=== PATIENT | female | born 1960 | race Caucasian/White ===

== ENCOUNTER → 2020-10-27 09:55 | Outpatient (CLI) | payer OTHER, SELFPAY ==
[2020-10-27 10:49] LABS: Hemoglobin A1C% w Est Avg Glu 6.6 % (4.0-6.0)
[2020-10-27 11:19] LABS: Alanine Aminotransferase 24 IU/L (<35); Albumin 4.8 g/dL (3.5-5.0); Albumin Globulin Ratio 1.7 (1.0-2.8); Alkaline Phosphatase 79 U/L (38-126); Aspartate Aminotransferase 39 IU/L (14-36); BUN Creatinine Ratio 27.9 (6-22); Bilirubin Total 0.5 mg/dL (0.2-1.3); Blood Urea Nitrogen 17 mg/dL (7-17); Calcium 9.9 mg/dL (8.4-10.2); Carbon Dioxide 26 mmol/L (22-32); Chloride 101 mmol/L (98-107); Cholesterol 223 mg/dL (140-199); Estimated Glomerular Filt Rate > 60.0 mL/min (>60); Globulin 2.8 g/dL (1.7-4.1); Glucose 120 mg/dL (80-110); HDL Cholesterol 70 mg/dL (40-60); HEMOLYSIS < 15 (0-50); LDL Cholesterol Calculated 135 mg/dL (<100); Potassium 4.5 mmol/L (3.4-5.1); Sodium 138 mmol/L (137-145); Total Protein 7.6 g/dL (6.3-8.2); Triglycerides 91 mg/dL (35-150)
[2020-10-27 11:49] LABS: TSH w/ Reflex to FT4 2.83 uIU/mL (0.47-4.68)
== END ==
PROVIDERS: PCP Family Medicine; Referring Provider Family Medicine; Visit Provider Family Medicine
DX: J30.2 Other seasonal allergic rhinitis (principal); N28.9 Disorder of kidney and ureter, unspecified; R73.03 Prediabetes; Z85.3 Personal history of malignant neoplasm of breast
CPT/HCPCS: 36415; 80053; 80061; 83036; 84443

== ENCOUNTER → 2020-10-29 08:29 | Outpatient (CLI) | payer OTHER, SELFPAY ==
[2020-10-29] MEDS: COVID-19 VACC #1, MRNA(MOD) 100 MCG/0.5 ML VIAL IM (08:34)
== END ==
PROVIDERS: PCP Family Medicine; Visit Provider Internal Medicine
DX: Z23 Encounter for immunization (principal)
CPT/HCPCS: 0011A; 91301

== ENCOUNTER → 2020-11-26 08:26 | Outpatient (CLI) | payer OTHER, SELFPAY ==
[2020-11-26] MEDS: COVID-19 VACC #2, MRNA(MOD) 100 MCG/0.5 ML VIAL IM (08:32)
== END ==
PROVIDERS: PCP Family Medicine; Visit Provider Internal Medicine
DX: Z23 Encounter for immunization (principal)
CPT/HCPCS: 0012A; 91301

== ENCOUNTER → 2020-12-16 18:08 | Outpatient (CLI) | payer OTHER, SELFPAY | PROVIDERS: PCP Family Medicine; Visit Provider Physician Assistant | DX: R30.0 Dysuria (principal) | CPT/HCPCS: 87077; 87086; 87186 ==

== ENCOUNTER → 2021-03-31 10:50 | Outpatient (CLI) | payer OTHER, SELFPAY | PROVIDERS: PCP Family Medicine; Referring Provider Nurse Practitioner; Visit Provider Nurse Practitioner | DX: N39.0 Urinary tract infection, site not specified (principal) | CPT/HCPCS: 87077; 87086; 87186 ==

== ENCOUNTER → 2021-04-20 07:40 | Outpatient (CLI) | payer OTHER, SELFPAY ==
[2021-04-20 08:52] LABS: Hemoglobin A1C% w Est Avg Glu 6.8 % (4.0-6.0)
[2021-04-20 09:00] LABS: Alanine Aminotransferase 27 IU/L (<35); Albumin Globulin Ratio 1.4 (1.0-2.8); Alkaline Phosphatase 79 U/L (38-126); Aspartate Aminotransferase 37 IU/L (14-36); Bilirubin Total 0.3 mg/dL (0.2-1.3); Blood Urea Nitrogen 14 mg/dL (7-17); Calcium 9.2 mg/dL (8.4-10.2); Carbon Dioxide 34 mmol/L (22-32); Chloride 104 mmol/L (98-107); Estimated Glomerular Filt Rate > 60.0 mL/min (>60); Globulin 2.8 g/dL (1.7-4.1); Glucose 122 mg/dL (80-110); HEMOLYSIS < 15 (0-50); Potassium 4.2 mmol/L (3.4-5.1); Sodium 141 mmol/L (137-145); Total Protein 6.8 g/dL (6.3-8.2)
== END ==
PROVIDERS: PCP Family Medicine; Referring Provider Family Medicine; Visit Provider Family Medicine
DX: E78.2 Mixed hyperlipidemia (principal); N28.9 Disorder of kidney and ureter, unspecified; R73.03 Prediabetes
CPT/HCPCS: 36415; 80053; 83036

== ENCOUNTER → 2021-08-19 10:11 | Outpatient (CLI) | payer OTHER, SELFPAY ==
[2021-08-19 12:13] LABS: COVID19 -Nasal RAPID Negative (Negative)
== END ==
PROVIDERS: PCP Family Medicine; Visit Provider Surgery
DX: Z01.812 Encounter for preprocedural laboratory examination (principal); Z20.822 Contact with and (suspected) exposure to COVID-19
CPT/HCPCS: 87635; C9803

== ENCOUNTER 2021-08-22 07:33 | Day surgery (SDC) | payer OTHER, SELFPAY ==
[2021-08-22] VITALS (11 sets, daily range): BP systolic 129–166; BP diastolic 50–73; PULSE 40–58; RESP 10–20; TEMP 36.4–36.7; O2SAT 98–100; BMI 20.1
--- NOTE | 2021-08-22 | PATH_ITS ---
[facility] Accession Number: [id number] . 01 Material submitted: . colon - ASCENDING COLON POLYP . 02 Diagnosis: Ascending Colon Polyp: Serrated lesion, cannot completely exclude sessile serrated adenoma. V 08/25/2021 1251 Local . 02 Electronically signed: . Dulce Leon MD, Pathologist NPI- [id number] . 01 Gross description: . ASCENDING COLON POLYP: Received in formalin is 1 fragment(s) of vazquez, soft tissue measuring 0.3 x 0.3 x 0.2 cm submitted entirely in 1 cassette(s) /[facility] 08/23/2021 0949 Local . 02 Pathologist provided ICD-10: K63.5 . 02 CPT . 665821 Performed at: 01 [facility] [address] [facility], [place], [place] [id number] MD Manohar Chris MD Phone: [phone] Performed at: 02 [facility] [address] [place], [place] [id number] MD Monalisa Moreno MD Phone: [phone]
--- NOTE | 2021-08-22 08:31 | PM.HP.1 ---
History of Present Illness History of Present Illness Date Patient Seen: 08/22/21 Time Patient Seen: 08:31 Chief complaint: SCREENING COLONOSCOPY Narrative: The patient presents for colorectal sreening. She has a personal history of colonic polyps, last colonoscopy 5 years ago. No personal or family history of colon cancer. On further history denies any recent gastrointestinal symptoms. No nausea, vomiting, abdominal pain, loss of appetite, unexplained weight loss, change in bowel habits, diarrhea, constipation, melena, hematochezia, or bright red blood per rectum. Patient History Medical History Diabetes History of breast cancer Hyperlipidemia Renal insufficiency Seasonal allergic rhinitis Family & Social History Social History: household members spouse Tobacco & Substance use: Smoking Status Former smoker alcohol intake current alcohol intake frequency 0-2 drinks per day Substance Use Type does not use Meds Home Medications and Allergies Home Medications Medication Instructions Recorded Confirmed Type dicyclomine 10 mg capsule 10 mg PO ONCE PRN cap 09/03/20 08/22/21 History blood sugar diagnostic (Blood #100 ea 12/24/20 06/23/21 Rx Glucose Test) blood-glucose meter #1 ea 12/24/20 06/23/21 Rx lancets 33 gauge (BD Ultra Fine #100 ea 12/24/20 06/23/21 Rx Lancets) Allergies Allergy/AdvReac Type Severity Reaction Status Date / Time No Known Drug Allergies Allergy Verified 08/22/21 08:07 Exam Vital Signs (past 8 hours): - 08/22/21 07:58 Temperature 97.6 F Pulse Rate 42 L Respiratory Rate 16 Blood Pressure 152/73 H Pulse Oximetry 100 Oxygen Delivery Method Room Air Narrative Exam Narrative: GENERAL: Thin female in no apparent distress HEENT: No scleral icterus CV: Regular rate, no peripheral edema LUNGS: No increased work of breathing. Patient speaks in full sentences without oxygen support. ABDOMEN: Soft, non-tender, non-distended NEURO: Nonfocal, normal strength throughout SKIN: Warm and dry Assessment & Plan Assessment and plan (1) Personal history of colonic polyps: Status: Acute Assessment & Plan narrative: The patient requires colorectal screening and colonoscopy is recommended. Technical details were discussed. Risks, benefits, alternatives explained. Risks including but not limited to myocardial infarction, aspiration, bleeding, pain, missed lesion, incomplete examination, need for further radiographic studies, colonic perforation, and need for major abdominal surgery were discussed. All questions were answered to their satisfaction, and they are in agreement with this plan. Time Spent With Patient Critical Care time: I spent a total of [] minutes of critical care time on this patient's care today; this time is exclusive of procedural time.
[2021-08-22] MEDS: MIDAZOLAM 5 MG/5 ML VIAL IV (08:52)
[2021-08-22] MEDS: fentaNYL 250 MCG/5 ML INJ IV (08:52)
--- NOTE | 2021-08-22 09:09 | PM.OP.COLON ---
Operative Date/Time/Diagnoses Date of procedure: 08/22/21 Time of procedure: 09:09 Pre-op diagnosis: Personal history of colonic polyps Post-op diagnosis: same Procedure & Clinicians Study performed: Colonoscopy and polypectomy Same procedure as scheduled: Yes Indications: Personal history of colonic polyps. Surgeon: Farshad Aguilar Procedure Notes Procedure in detail: Medications: Conscious sedation using 5 mg IV midazolam and 250 mcg IV of fentanyl The history and physical was performed/updated and the patient is ASA class is 2. The procedure was discussed in detail with the patient. Potential risks complications including infection, bleeding, missed diagnosis, perforation, need for surgery, and were explained. Their questions were answered and informed consent was obtained. Patient was brought to the procedure room and placed standard monitoring equipment. The patient's vital signs were monitored continuously throughout the entire procedure. Prior to starting time-out was performed. The patient was placed in the left lateral recumbent position. Procedural sedation was administered. Examination began with a thorough inspection of the perianal area there was no evidence of fissures, fistulae, external hemorrhoids or cutaneous malignancy. The colonoscopy scope was then placed into the anal canal and was advanced to the cecum, which was identified by the ileocecal valve, the appendiceal orifice and the confluence of the taenia. The scope was then slowly withdrawn examining colon thoroughly in all directions, irrigating it of any residual stool. FINDINGS 1. Ascending colon-5 mm polyp removed with biopsy forceps 2. Tortuous right-sided colon The patient tolerated the procedure well. They will be discharged once criteria are met. The prep was of good/excellent quality. The withdrawl time was 6 minutes. The sedation time was 27 minutes. Specimen(s): other (Ascending colon) Impression: Colonic polyp Post-procedure Recommendations: Colonoscopy in 5 years Disposition: same day surgery
== END 2021-08-22 10:46 | disposition home or self-care (01) ==
PROVIDERS: PCP Family Medicine; Referring Provider Surgery; Visit Provider Surgery
PROC: 0DJD8ZZ Inspection of Lower Intestinal Tract, Via Natural or Artificial Opening Endoscopic (ICD-10-PCS; CPT 45378; principal; 2021-08-22 08:30)
DX: Z12.11 Encounter for screening for malignant neoplasm of colon (principal); Z86.010 Personal history of colon polyps; E78.5 Hyperlipidemia, unspecified; E11.9 Type 2 diabetes mellitus without complications; D12.2 Benign neoplasm of ascending colon
CPT/HCPCS: 45380; 99152; 99153; J2250; J3010

== ENCOUNTER → 2021-08-30 07:54 | Outpatient (CLI) | payer OTHER, SELFPAY ==
[2021-08-30 09:28] LABS: Hemoglobin A1C% w Est Avg Glu 6.9 % (4.0-6.0)
== END ==
PROVIDERS: PCP Family Medicine; Referring Provider Family Medicine; Visit Provider Family Medicine
DX: E11.9 Type 2 diabetes mellitus without complications (principal)
CPT/HCPCS: 36415; 83036

== ENCOUNTER → 2021-12-15 11:12 | Outpatient (CLI) | payer OTHER, SELFPAY ==
--- NOTE | 2021-12-15 11:14 | DI.MRI.S_ITS ---
PROCEDURE: MR PELIS WO/W CON INDICATIONS: ovarian cancer f/u 2012 TECHNIQUE: Coronal HASTE, sagittal T2 FSE, axial T1 FSE, axial and coronal nonbreath-hold T2 FSE. Axial dynamic VIBE during administration of contrast. Post-contrast axial and coronal VIBE/2-D FLASH with fat saturation from the iliac crests to the symphysis. Optional diffusion weighted imaging and ADC may be performed. COMPARISON: None. FINDINGS: Image quality: Excellent. Bowel and peritoneum: No visible free pelvic fluid though there is a paucity of space in the intraperitoneal cavity in the pelvis. There appears to be some fascial thickening in the right pericolic gutter. The visible bowel loops appear normal, although there may be some nonspecific mesenteric thickening, potentially edema. Genitourinary system: The urinary bladder wall appears slightly diffusely thickened and there may be perivesicular edema. Distal ureters are not well seen and likely nondilated. The uterus is absent. Ovarian tissue is presumed absent. Nodes and vessels: Along the right pelvic sidewall, there is a well-circumscribed homogeneously T2 hyperintense unilocular thin-walled cyst measuring 4.4 cm. No adjacent fluid. No suspicious peripheral or internal enhancement postcontrast. In the anterior left pelvis in the external iliac chain, there is a unilocular cyst measuring 2.4 cm with a slightly thicker wall and peripheral wall enhancement. No other visible lymph nodes. The vasculature appears normal. Soft tissues: No inguinal hernias. Bones: Marrow is normal in overall signal. IMPRESSION: 1. There are two cystic masses in the pelvis which are nonspecific. Differential diagnosis includes malignant deposits, lymph nodes, lymphocele, less likely residual ovarian tissue. 2. Nonspecific right lateral conal fascial thickening, possible mesenteric thickening, and possible perivesicular thickening and/or inflammation. 3. Confirmation of above findings is recommended using CT with IV and oral contrast. Dictated by: Leatha Heck M.D. on 12/15/2021 at 13:45 Approved by: Leatha Heck M.D. on 12/15/2021 at 15:21
== END ==
PROVIDERS: PCP Family Medicine; Referring Provider Internal Medicine Medical Oncology; Visit Provider Internal Medicine Medical Oncology
DX: Z85.3 Personal history of malignant neoplasm of breast; Z08 Encounter for follow-up examination after completed treatment for malignant neoplasm; Z85.43 Personal history of malignant neoplasm of ovary; N94.89 Other specified conditions associated with female genital organs and menstrual cycle
CPT/HCPCS: 72197; A9579

== ENCOUNTER → 2022-04-14 07:04 | Outpatient (CLI) | payer OTHER, SELFPAY ==
[2022-04-14 09:28] LABS: Cholesterol 203 mg/dL (140-199); HDL Cholesterol 47 mg/dL (40-60); LDL Cholesterol Calculated 135 mg/dL (<100); Triglycerides 104 mg/dL (35-150)
[2022-04-14 09:32] LABS: Hemoglobin A1C% w Est Avg Glu 6.8 % (4.0-6.0)
[2022-04-14 09:39] LABS: TSH w/ Reflex to FT4 2.15 uIU/mL (0.47-4.68)
== END ==
PROVIDERS: PCP Family Medicine; Referring Provider Family Medicine; Visit Provider Family Medicine
DX: E11.9 Type 2 diabetes mellitus without complications (principal); E78.2 Mixed hyperlipidemia; N28.9 Disorder of kidney and ureter, unspecified
CPT/HCPCS: 80061; 83036; 84443

== ENCOUNTER → 2022-04-21 09:07 | Outpatient (CLI) | payer OTHER, SELFPAY ==
--- NOTE | 2022-04-21 09:09 | DI.RAD.S_ITS ---
PROCEDURE: XR FOOT LT MIN 3V INDICATIONS: left foot pain TECHNIQUE: 3 views of the foot were acquired. COMPARISON: None. FINDINGS: Bones: No acute fractures or dislocations. No suspicious bony lesions. Moderate degenerative changes at the 1st metatarsophalangeal joint with joint space narrowing and marginal osteophyte formation. Soft tissues: No suspicious soft tissue calcification IMPRESSION: No acute osseous abnormality. 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 Dictated by: Rusty Cantrell M.D. on 04/21/2022 at 10:44 Approved by: Rusty Cantrell M.D. on 04/21/2022 at 10:45
== END ==
PROVIDERS: PCP Family Medicine; Referring Provider Family Medicine; Visit Provider Family Medicine
DX: M79.672 Pain in left foot (principal); M19.072 Primary osteoarthritis, left ankle and foot
CPT/HCPCS: 73630

== ENCOUNTER → 2022-06-30 12:46 | Outpatient (CLI) | payer OTHER, SELFPAY ==
--- NOTE | 2022-06-30 12:46 | DI.MG.S_ITS ---
UNILATERAL RIGHT DIGITAL SCREENING MAMMOGRAM 3D/2D WITH CAD: 06/30/2022 CLINICAL: Routine screening. Personal history of left breast cancer. Family history of breast cancer. Comparison is made to exams dated: 06/28/2021 mammogram, 06/28/2020 mammogram, and 06/26/2019 mammogram - Outside facility. The right breast is heterogeneously dense, which may obscure small masses (category c / 51-75% glandular tissue). Current study was also evaluated with a Computer Aided Detection (CAD) system. There are benign calcifications in the right breast. There also are benign post operative findings in the right breast. No significant masses, calcifications, or other findings are seen in the breast. There has been no significant interval change. IMPRESSION: BENIGN There is no mammographic evidence of malignancy. A 1 year screening mammogram is recommended. This exam was interpreted at Station ID: [id number]. NOTE: For mammograms, a report in lay terms will be sent to the patient. Approximately 15% of breast malignancies will not be visualized mammographically. In the management of a palpable breast mass, a negative mammogram must not discourage biopsy of a clinically suspicious lesion. Electronically Signed By: Demario baron/ramsey:06/30/2022 16:20:07 letter sent: Normal Exam ACR BI-RADS Category 2: Benign Finding(s) 3342F
== END ==
PROVIDERS: PCP Family Medicine; Referring Provider Internal Medicine Medical Oncology; Visit Provider Internal Medicine Medical Oncology
DX: Z12.31 Encounter for screening mammogram for malignant neoplasm of breast (principal); Z85.3 Personal history of malignant neoplasm of breast; Z80.3 Family history of malignant neoplasm of breast
CPT/HCPCS: 77063; 77067

== ENCOUNTER → 2022-10-04 07:20 | Outpatient (CLI) | payer OTHER, SELFPAY ==
[2022-10-04 08:13] LABS: Add Manual Diff / Slide Review NO; Basophils Absolute Auto 0 /uL (0-100); Basophils Percent Auto 0.6 % (0-2); Eosinophils Absolute Auto 300 /uL (0-450); Eosinophils Percent Auto 3.6 % (2-4); Hematocrit 37.9 % (36-46); Hemoglobin 12.6 g/dL (12.0-16.0); Lymphocytes Absolute Auto 2900 /uL (1100-4500); Mean Corpuscular HGB Conc 33.2 % (30-36); Mean Corpuscular Hemoglobin 30.7 PG (26-34); Mean Corpuscular Volume 92.3 fL (80-100); Monocytes Absolute Auto 300 /uL (0-900); Monocytes Percent Auto 4.7 % (3-14); Neutrophils Absolute Auto 3700 /uL (1500-7000); Neutrophils Percent Auto 51.1 % (50-75); Platelet Count 305 X10^3/uL (150-400); Red Blood Cell Count 4.11 X10^6/uL (4.0-5.2); Red Cell Distribution Width 12.6 % (11.6-14.8); White Blood Cell Count 7.3 X10^3/uL (4.5-11.0)
[2022-10-04 08:33] LABS: Alanine Aminotransferase 24 IU/L (<35); Albumin 4.1 g/dL (3.5-5.0); Albumin Globulin Ratio 1.3 (1.0-2.8); Alkaline Phosphatase 91 U/L (38-126); Aspartate Aminotransferase 30 IU/L (14-36); BUN Creatinine Ratio 21.7 (6-22); Bilirubin Total 0.6 mg/dL (0.2-1.3); Blood Urea Nitrogen 15 mg/dL (7-17); Calcium 8.9 mg/dL (8.4-10.2); Carbon Dioxide 30 mmol/L (22-32); Chloride 98 mmol/L (98-107); Estimated Glomerular Filt Rate > 60 mL/min (>60); Globulin 3.1 g/dL (1.7-4.1); Glucose 123 mg/dL (80-110); HEMOLYSIS < 15 (0-50); Hemoglobin A1C% w Est Avg Glu 7.1 % (4.0-6.0); Potassium 4.4 mmol/L (3.4-5.1); Sodium 137 mmol/L (137-145); Total Protein 7.2 g/dL (6.3-8.2)
[2022-10-04 08:52] LABS: Creatinine Urine Random 70.3 mg/dL
[2022-10-04 08:57] LABS: Microalbumin Urine Random < 0.6 mg/dL (0-1.6)
== END ==
PROVIDERS: PCP Family Medicine; Referring Provider Family Medicine; Visit Provider Family Medicine
DX: E11.9 Type 2 diabetes mellitus without complications (principal); E78.2 Mixed hyperlipidemia
CPT/HCPCS: 36415; 80053; 82043; 82570; 83036; 85025

== ENCOUNTER 2023-01-16 07:40 | Day surgery (SDC) | payer MEDICARE, OTHER, SELFPAY ==
[2023-01-16] VITALS (9 sets, daily range): BP systolic 148–175; BP diastolic 53–69; PULSE 42–53; RESP 15–28; TEMP 36–36.5; O2SAT 98–100; BMI 21.9
--- NOTE | 2023-01-16 | DI.RAD.S_ITS ---
PROCEDURE: XR ACUTE ABDOMEN SERIES INDICATIONS: abd pain post colonoscopy TECHNIQUE: One view chest and two views of the abdomen were acquired. COMPARISON: None. FINDINGS: Surgical changes and devices: Surgical clips seen in the left pelvis. Chest: Lungs are clear. Heart size is normal. No pleural effusions. No pneumoperitoneum. Abdomen: Prominent air-filled loops of large bowel are seen throughout the abdomen. No suspicious calcifications. Visualized solid organ contours appear normal. Bones: No suspicious bony lesions. IMPRESSION: No pneumoperitoneum. Mildly dilated air-filled loops of large bowel are expected after colonoscopy. Approved by: Rusty Cantrell M.D. on 01/16/2023 at 10:54
[2023-01-16] MEDS: LACTATED RINGERS 1,000 ML 200 ML IV (08:01)
--- NOTE | 2023-01-16 08:39 | PM.HP.1 ---
History of Present Illness History of Present Illness Date Patient Seen: 01/16/23 Time Patient Seen: 08:39 Chief complaint: Colonoscopy Narrative: 63-year-old woman here for screening colonoscopy. Year and a half ago she had a piecemeal resection of a sessile serrated adenoma. She is here for a 1 year surveillance to ensure complete polyp resection. No family history of intestinal malignancy. She suffers from chronic diarrhea otherwise no new intestinal symptoms. [facility] Medical History Diabetes History of breast cancer Hyperlipidemia Renal insufficiency Seasonal allergic rhinitis Social History household members: spouse Smoking Status: Former smoker Tobacco: How many years used: 2 alcohol intake: current substance use type: does not use Meds Home Medications and Allergies Home Medications Medication Instructions Recorded Confirmed Type dicyclomine 10 mg capsule 10 mg PO ONCE PRN IBS 09/03/20 01/16/23 History blood-glucose meter #1 ea 12/24/20 10/20/22 Rx lancets 33 gauge (BD Ultra Fine #100 ea 12/24/20 10/20/22 Rx Lancets) cetirizine 10 mg tablet (Aller-Dago) 10 mg PO DAILY PRN Allergy Symptoms 11/22/21 01/16/23 History blood sugar diagnostic (True #100 strips 11/07/22 Rx Metrix Glucose Test Strip) metformin 1,000 mg tablet,extended 1,000 mg PO DAILY #90 tabs 12/19/22 01/16/23 Rx release 24hr Allergies Allergy/AdvReac Type Severity Reaction Status Date / Time No Known Drug Allergies Allergy Verified 01/16/23 07:51 Exam Vital Signs (past 8 hours): - 01/16/23 07:59 Temperature 97.2 F L Pulse Rate 53 L Respiratory Rate 16 Blood Pressure 153/68 H Pulse Oximetry 100 Oxygen Delivery Method Room Air Oxygen Delivery Method Room Air Narrative Exam Narrative: General adult woman alert oriented no acute distress Chest nonlabored respiration Abdomen soft nontender nondistended Assessment & Plan Assessment and plan (1) Personal history of colonic polyps: Status: Acute Assessment & Plan narrative: 63-year-old woman history of sessile serrated adenoma with piecemeal resection here for a 1 year surveillance follow-up. Technical details were discussed. Risks, benefits, alternatives explained. Risks including but not limited to myocardial infarction, aspiration, bleeding, pain, missed lesion, incomplete examination, need for further radiographic studies, colonic perforation, and need for major abdominal surgery were discussed. All questions were answered to their satisfaction, and they are in agreement with this plan.
--- NOTE | 2023-01-16 09:20 | PM.OP.COLON ---
Operative Date/Time/Diagnoses Date of procedure: 01/16/23 Time of procedure: 09:20 Pre-op diagnosis: History of sessile serrated polyp Post-op diagnosis: same Procedure & Clinicians Study performed: Colonoscopy Same procedure as scheduled: Yes Indications: 63-year-old woman who had a piecemeal resection of a sessile serrated polyp here for surveillance. Procedure Notes Procedure in detail: The history and physical was performed/updated and the patient is ASA class is 2. The procedure was discussed in detail with the patient. Potential risks complications including infection, bleeding, missed diagnosis, perforation, need for surgery, and were explained. Their questions were answered and informed consent was obtained. Patient was brought to the procedure room and placed standard monitoring equipment. The patient's vital signs were monitored continuously throughout the entire procedure. Prior to starting time-out was performed. The patient was placed in the left lateral recumbent position. Procedural sedation was administered by anesthesia. Examination began with a thorough inspection of the perianal area there was no evidence of fissures, fistulae, external hemorrhoids or cutaneous malignancy. The colonoscopy scope was then placed into the anal canal and was advanced to the cecum, which was identified by the ileocecal valve, the appendiceal orifice and the confluence of the taenia. The scope was then slowly withdrawn examining colon thoroughly in all directions, irrigating it of any residual stool. No masses or polyps. Diverticulosis moderate within the sigmoid colon. The patient tolerated the procedure well. They will be discharged once criteria are met. The prep was of good/excellent quality. The withdrawl time was 7 minutes. Specimen(s): none sent Impression: Normal colonoscopy Post-procedure Recommendations: Colonoscopy in 5 years and High fiber diet Disposition: same day surgery
--- NOTE | 2023-01-16 10:23 | SUR.PHASEII ---
1015 pt c/o continuing pain in abd unable to stand r/t discomfort abd soft, tender of left lower side Dr. Aguilar contacted for reassess
--- NOTE | 2023-01-16 10:41 | SUR.PHASEII ---
1040 abd xr taken
== END 2023-01-16 11:37 | disposition home or self-care (01) ==
PROVIDERS: PCP Family Medicine; Referring Provider Surgery; Visit Provider Surgery
PROC: 0DJD8ZZ Inspection of Lower Intestinal Tract, Via Natural or Artificial Opening Endoscopic (ICD-10-PCS; CPT 45378; principal; 2023-01-16 08:45)
DX: Z12.11 Encounter for screening for malignant neoplasm of colon (principal); Z86.010 Personal history of colon polyps; K57.30 Diverticulosis of large intestine without perforation or abscess without bleeding
CPT/HCPCS: G0105; 74022

== ENCOUNTER → 2023-01-18 06:51 | Outpatient (CLI) | payer MEDICARE, OTHER, SELFPAY ==
[2023-01-18 07:44] LABS: Add Manual Diff / Slide Review NO; Basophils Absolute Auto 0 /uL (0-100); Basophils Percent Auto 0.4 % (0-2); Eosinophils Absolute Auto 800 /uL (0-450); Eosinophils Percent Auto 9.4 % (2-4); Hematocrit 38.3 % (36-46); Hemoglobin 13.1 g/dL (12.0-16.0); Lymphocytes Absolute Auto 4100 /uL (1100-4500); Mean Corpuscular HGB Conc 34.1 % (30-36); Mean Corpuscular Hemoglobin 31.8 PG (26-34); Mean Corpuscular Volume 93.1 fL (80-100); Monocytes Absolute Auto 500 /uL (0-900); Neutrophils Absolute Auto 3600 /uL (1500-7000); Neutrophils Percent Auto 40.2 % (50-75); Platelet Count 272 X10^3/uL (150-400); Red Blood Cell Count 4.12 X10^6/uL (4.0-5.2)
[2023-01-18 08:32] LABS: TSH w/ Reflex to FT4 1.11 uIU/mL (0.47-4.68)
[2023-01-18 08:39] LABS: Alanine Aminotransferase 19 IU/L (<35); Albumin 4.1 g/dL (3.5-5.0); Albumin Globulin Ratio 1.5 (1.0-2.8); Alkaline Phosphatase 80 U/L (38-126); Aspartate Aminotransferase 28 IU/L (14-36); BUN Creatinine Ratio 18.5 (6-22); Bilirubin Total 0.4 mg/dL (0.2-1.3); Blood Urea Nitrogen 12 mg/dL (7-17); Calcium 9.1 mg/dL (8.4-10.2); Carbon Dioxide 28 mmol/L (22-32); Chloride 100 mmol/L (98-107); Cholesterol 189 mg/dL (140-199); Estimated Glomerular Filt Rate > 60 mL/min (>60); Globulin 2.8 g/dL (1.7-4.1); Glucose 121 mg/dL (80-110); HDL Cholesterol 51 mg/dL (40-60); HEMOLYSIS < 15 (0-50); LDL Cholesterol Calculated 122 mg/dL (<100); Sodium 136 mmol/L (137-145); Total Protein 6.9 g/dL (6.3-8.2); Triglycerides 80 mg/dL (35-150)
[2023-01-18 08:51] LABS: Creatinine Urine Random 69.3 mg/dL
[2023-01-18 08:53] LABS: Microalbumin Urine Random < 0.6 mg/dL (0-1.6)
[2023-01-18 16:31] LABS: Hep C Virus Ab w/Reflex Quant NEGATIVE s/c (NEGATIVE)
[2023-01-19 04:31] LABS: Labcorp Hemoglobin (Hb) A1c 6.8 % (4.8-5.6)
== END ==
PROVIDERS: PCP Family Medicine; Referring Provider Family Medicine; Visit Provider Family Medicine
DX: E11.9 Type 2 diabetes mellitus without complications (principal); E78.5 Hyperlipidemia, unspecified; N28.9 Disorder of kidney and ureter, unspecified; Z85.3 Personal history of malignant neoplasm of breast
CPT/HCPCS: 36415; 80053; 80061; 82043; 82570; 83036; 84443; 85025; 86803

== ENCOUNTER → 2023-04-11 06:53 | Outpatient (CLI) | payer MEDICARE, OTHER, SELFPAY ==
[2023-04-11 09:33] LABS: Hemoglobin A1C% w Est Avg Glu 6.3 % (4.0-6.0)
[2023-04-11 10:07] LABS: Cancer Antigen 125 6.9 U/mL (0-35)
[2023-04-12 06:10] LABS: CA 15-3 11.9 U/mL (0.0-25.0)
== END ==
PROVIDERS: PCP Family Medicine; Referring Provider Family Medicine; Visit Provider Family Medicine
DX: E11.9 Type 2 diabetes mellitus without complications (principal); Z85.43 Personal history of malignant neoplasm of ovary; Z85.3 Personal history of malignant neoplasm of breast
CPT/HCPCS: 36415; 83036; 86300; 86304

== ENCOUNTER → 2023-07-02 08:07 | Outpatient (CLI) | payer MEDICARE, OTHER, SELFPAY ==
--- NOTE | 2023-07-02 | DI.MG.S_ITS ---
UNILATERAL RIGHT DIGITAL SCREENING MAMMOGRAM 3D/2D WITH CAD POST MASTECTOMY: 07/02/2023 CLINICAL: Routine screening. Personal history of left breast cancer. Family history of breast cancer. Comparison is made to exams dated: 06/30/2022 mammogram - [facility], 06/28/2021 mammogram, and 06/28/2020 mammogram - Outside facility. The right breast is heterogeneously dense, which may obscure small masses (category c / 51-75% glandular tissue). Current study was also evaluated with a Computer Aided Detection (CAD) system. There are benign calcifications in the right breast. There also are benign post operative findings in the right breast. No significant masses, calcifications, or other findings are seen in the breast. There has been no significant interval change. IMPRESSION: BENIGN There is no mammographic evidence of malignancy. A 1 year screening mammogram is recommended. This exam was interpreted at Station ID: [id number]. NOTE: For mammograms, a report in lay terms will be sent to the patient. Approximately 15% of breast malignancies will not be visualized mammographically. In the management of a palpable breast mass, a negative mammogram must not discourage biopsy of a clinically suspicious lesion. Electronically Signed By: Demario baron/ramsey:07/02/2023 09:01:53 letter sent: Normal Exam ACR BI-RADS Category 2: Benign Finding(s) 3342F
== END ==
PROVIDERS: PCP Family Medicine; Referring Provider Family Medicine; Visit Provider Family Medicine
DX: Z12.31 Encounter for screening mammogram for malignant neoplasm of breast (principal); Z80.3 Family history of malignant neoplasm of breast; Z85.3 Personal history of malignant neoplasm of breast
CPT/HCPCS: 77063; 77067

== ENCOUNTER → 2023-10-08 06:51 | Outpatient (CLI) | payer MEDICARE, OTHER, SELFPAY ==
[2023-10-08 07:51] LABS: Hemoglobin A1C% w Est Avg Glu 6.6 % (4.0-6.0)
[2023-10-08 08:30] LABS: Cancer Antigen 125 6.4 U/mL (0-35)
[2023-10-09 07:43] LABS: CA 15-3 12.6 U/mL (0.0-25.0)
== END ==
PROVIDERS: PCP Family Medicine; Referring Provider Family Medicine; Visit Provider Family Medicine
DX: E11.9 Type 2 diabetes mellitus without complications (principal); Z85.43 Personal history of malignant neoplasm of ovary; Z85.3 Personal history of malignant neoplasm of breast; E78.5 Hyperlipidemia, unspecified
CPT/HCPCS: 36415; 83036; 86300; 86304

== ENCOUNTER → 2023-10-12 11:33 | Outpatient (CLI) | payer MEDICARE, OTHER, SELFPAY ==
[2023-10-12 12:58] LABS: Add Manual Diff / Slide Review NO; Basophils Absolute Auto 100 /uL (0-100); Basophils Percent Auto 1.1 % (0-2); Eosinophils Absolute Auto 1100 /uL (0-450); Eosinophils Percent Auto 12.8 % (2-4); Hemoglobin 13.4 g/dL (12.0-16.0); Lymphocytes Absolute Auto 3500 /uL (1100-4500); Lymphocytes Percent Auto 42.7 % (25-40); Mean Corpuscular HGB Conc 33.6 % (30-36); Mean Corpuscular Hemoglobin 32.4 PG (26-34); Mean Corpuscular Volume 96.4 fL (80-100); Monocytes Absolute Auto 400 /uL (0-900); Monocytes Percent Auto 4.7 % (3-14); Neutrophils Absolute Auto 3200 /uL (1500-7000); Neutrophils Percent Auto 38.7 % (50-75); Platelet Count 296 X10^3/uL (150-400); Red Blood Cell Count 4.15 X10^6/uL (4.0-5.2); Red Cell Distribution Width 13.3 % (11.6-14.8); White Blood Cell Count 8.2 X10^3/uL (4.5-11.0)
[2023-10-12 13:54] LABS: Alanine Aminotransferase 14 IU/L (<35); Albumin 4.4 g/dL (3.5-5.0); Albumin Globulin Ratio 1.3 (1.0-2.8); Alkaline Phosphatase 94 U/L (38-126); Aspartate Aminotransferase 28 IU/L (14-36); BUN Creatinine Ratio 27.3 (6-22); Bilirubin Total 0.4 mg/dL (0.2-1.3); Blood Urea Nitrogen 18 mg/dL (7-17); Calcium 9.7 mg/dL (8.4-10.2); Carbon Dioxide 25 mmol/L (22-32); Chloride 103 mmol/L (98-107); Estimated Glomerular Filt Rate > 60 mL/min (>60); Globulin 3.3 g/dL (1.7-4.1); Glucose 120 mg/dL (80-110); HEMOLYSIS < 15 (0-50); Potassium 4.7 mmol/L (3.4-5.1); Sodium 138 mmol/L (137-145); Total Protein 7.7 g/dL (6.3-8.2)
[2023-10-12 13:58] LABS: TSH w/ Reflex to FT4 1.43 uIU/mL (0.47-4.68)
[2023-10-15 17:21] LABS: Hep C Virus Ab w/Reflex Quant NEGATIVE s/c (NEGATIVE)
== END ==
PROVIDERS: PCP Family Medicine; Referring Provider Family Medicine; Visit Provider Family Medicine
DX: E11.9 Type 2 diabetes mellitus without complications (principal); Z85.43 Personal history of malignant neoplasm of ovary; N28.9 Disorder of kidney and ureter, unspecified
CPT/HCPCS: 36415; 80053; 84443; 85025; 86803

== ENCOUNTER → 2023-12-27 10:56 | Outpatient (CLI) | payer MEDICARE, OTHER, SELFPAY ==
--- NOTE | 2023-12-27 10:57 | DI.RAD.S_ITS ---
PROCEDURE: XR CHEST 2V INDICATIONS: Productive cough, rhonchi TECHNIQUE: 2 views of the chest were acquired. COMPARISON: None. FINDINGS: Surgical changes and devices: Left mastectomy. Lungs and pleura: Lungs are clear. No pleural effusions or pneumothorax. Peribronchial cuffing. Mediastinum: Mediastinal contours are normal. Heart size is normal. Bones and chest wall: No suspicious bony abnormalities. Soft tissues appear unremarkable. Prominent right nipple shadow. IMPRESSION: Peribronchial cuffing, typically indicating infectious or inflammatory bronchitis. Dictated by: Arnaud Truong M.D. on 12/27/2023 at 11:33 Approved by: Arnaud Truong M.D. on 12/27/2023 at 11:36
== END ==
PROVIDERS: PCP Family Medicine; Referring Provider Physician Assistant Surgical; Visit Provider Physician Assistant Surgical
DX: J02.9 Acute pharyngitis, unspecified (principal); R09.89 Other specified symptoms and signs involving the circulatory and respiratory systems
CPT/HCPCS: 71046; 87070

== ENCOUNTER → 2023-12-27 11:06 | Outpatient (CLI) | payer MEDICARE, OTHER, SELFPAY | PROVIDERS: PCP Family Medicine; Visit Provider Physician Assistant Surgical | DX: J02.9 Acute pharyngitis, unspecified (principal) | CPT/HCPCS: 87070 ==

== ENCOUNTER → 2024-01-03 06:40 | Outpatient (CLI) | payer MEDICARE, OTHER, SELFPAY ==
[2024-01-03 08:22] LABS: Hemoglobin A1C% w Est Avg Glu 6.7 % (4.0-6.0)
== END ==
LOC: LAB 06:41
PROVIDERS: PCP Family Medicine; Referring Provider Family Medicine; Visit Provider Family Medicine
DX: N28.9 Disorder of kidney and ureter, unspecified (principal); E11.9 Type 2 diabetes mellitus without complications; Z85.43 Personal history of malignant neoplasm of ovary
CPT/HCPCS: 36415; 83036

== ENCOUNTER → 2024-01-04 08:21 | Outpatient (CLI) | payer MEDICARE, OTHER, SELFPAY | PROVIDERS: PCP Family Medicine; Visit Provider Family Medicine | DX: Z78.9 Other specified health status (principal); R05.9 Cough, unspecified; R50.9 Fever, unspecified | CPT/HCPCS: 87798 ==

== ENCOUNTER 2024-01-06 16:32 | Emergency (ER) | payer MEDICARE, OTHER, SELFPAY ==
[2024-01-06] VITALS (10 sets, daily range): BP systolic 149–216; BP diastolic 67–93; PULSE 44–56; RESP 14–19; TEMP 36.5; O2SAT 91–100; BMI 19.8
[2024-01-06] MEDS: ONDANSETRON 4 MG/2 ML INJ IV (16:45)
--- NOTE | 2024-01-06 16:53 | DI.RAD.S_ITS ---
PROCEDURE: XR CHEST 2V INDICATIONS: upper abdominal pain TECHNIQUE: 2 views of the chest were acquired. COMPARISON: [facility], CR, XR CHEST 2V, 12/27/2023, 11:16. FINDINGS: Surgical changes and devices: None. Lungs and pleura: Lungs are clear. No pleural effusions or pneumothorax. Mediastinum: Mediastinal contours are normal. Heart size is normal. Bones and chest wall: No suspicious bony abnormalities. Soft tissues appear unremarkable. IMPRESSION: No acute cardiopulmonary abnormality is seen. Dictated by: Narciso Ross M.D. on 01/06/2024 at 16:27 Approved by: Narciso Ross M.D. on 01/06/2024 at 16:28
[2024-01-06 17:03] LABS: Add Manual Diff / Slide Review NO; Basophils Absolute Auto 100 /uL (0-100); Eosinophils Absolute Auto 0 /uL (0-450); Eosinophils Percent Auto 0.3 % (2-4); Hematocrit 38.7 % (36-46); Hemoglobin 13.2 g/dL (12.0-16.0); Lymphocytes Absolute Auto 1700 /uL (1100-4500); Lymphocytes Percent Auto 17.2 % (25-40); Mean Corpuscular HGB Conc 34.2 % (30-36); Mean Corpuscular Hemoglobin 32.1 PG (26-34); Mean Corpuscular Volume 93.8 fL (80-100); Monocytes Absolute Auto 200 /uL (0-900); Monocytes Percent Auto 2.4 % (3-14); Neutrophils Absolute Auto 7800 /uL (1500-7000); Neutrophils Percent Auto 79.1 % (50-75); Platelet Count 492 X10^3/uL (150-400); Red Blood Cell Count 4.13 X10^6/uL (4.0-5.2); Red Cell Distribution Width 13.7 % (11.6-14.8); White Blood Cell Count 9.9 X10^3/uL (4.5-11.0)
[2024-01-06 17:12] LABS: Creatine Kinase 32 U/L (30-135)
[2024-01-06 17:13] LABS: Alanine Aminotransferase 10 IU/L (<35); Albumin 4.2 g/dL (3.5-5.0); Albumin Globulin Ratio 1.2 (1.0-2.8); Alkaline Phosphatase 98 U/L (38-126); Aspartate Aminotransferase 21 IU/L (14-36); BUN Creatinine Ratio 23.3 (6-22); Bilirubin Total 0.4 mg/dL (0.2-1.3); Blood Urea Nitrogen 14 mg/dL (7-17); Calcium 9.2 mg/dL (8.4-10.2); Carbon Dioxide 27 mmol/L (22-32); Chloride 99 mmol/L (98-107); Estimated Glomerular Filt Rate > 60 mL/min (>60); Globulin 3.4 g/dL (1.7-4.1); Glucose 199 mg/dL (80-110); HEMOLYSIS < 15 (0-50); Lipase 120 U/L (23-300); Potassium 4.6 mmol/L (3.4-5.1); Sodium 134 mmol/L (137-145); Total Protein 7.6 g/dL (6.3-8.2)
[2024-01-06 17:16] LABS: Ictotest Urine Negative (Negative)
[2024-01-06 17:17] LABS: Bacteria Urine None Seen; Culture Indicated Urine Cult Not Indicated; RBC Urine None Seen (0-5/HPF); Squamous Epithelial Cell Urine 0-1 /HPF (0-5/HPF); Urine Volume 10mL (spun); WBC Urine 0-1/HPF (0-5/HPF)
[2024-01-06 17:24] LABS: Troponin I < 0.012 ng/mL (0.01-0.034)
[2024-01-06] MEDS: HYDROMORPHONE 1 MG INJ IV (18:12)
--- NOTE | 2024-01-06 18:52 | ED_ITS ---
HPI - General Adult General Chief complaint: Abdominal Pain Stated complaint: [facility]; Severe Stomach Pain, Nausea Time Seen by Provider: 01/06/24 17:55 Source: patient Mode of arrival: Ambulatory History of Present Illness HPI narrative: Patient is a 63-year-old female. She was sent from the walk-in clinic for evaluation of fairly sudden onset of upper abdominal discomfort. She was having some nausea but no vomiting. No fevers. Pain not worse with eating. Is somewhat worse with palpation. No urinary symptoms. No change in bowel habits. 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 She denies chest pain or shortness of breath. Has not tried anything for symptoms prior to arrival. Related Data Home Medications Medication Instructions Recorded Confirmed dicyclomine 10 mg capsule 10 mg PO ONCE PRN IBS 09/03/20 12/27/23 cetirizine 10 mg tablet (Aller-Dago) 10 mg PO DAILY PRN Allergy Symptoms 11/22/21 12/27/23 Previous Rx's Medication Instructions Recorded blood-glucose meter #1 ea 12/24/20 lancets 33 gauge (BD Ultra Fine #100 ea 12/24/20 Lancets) blood sugar diagnostic (True #100 strips 11/07/22 Metrix Glucose Test Strip) metformin 1,000 mg tablet,extended 1,000 mg PO DAILY #90 tabs 04/13/23 release 24hr (osmotic) benzonatate 200 mg capsule 200 mg PO BID PRN cough #30 caps 12/27/23 hydrocodone 5 mg-acetaminophen 325 1 tab PO Q8H PRN pain #10 tabs 01/06/24 mg tablet ondansetron 4 mg disintegrating 4 mg PO Q6H PRN nausea and 01/06/24 tablet vomiting #10 tabs Allergies Allergy/AdvReac Type Severity Reaction Status Date / Time cold Allergy Unknown Rash, Uncoded 12/27/23 10:35 swelling Metformin IR AdvReac Mild low grade Uncoded 01/06/24 16:41 nausea, cramping, constipation, and pervasive gas Review of Systems Review of Systems ROS Unobtainable: All systems reviewed & are unremarkable except as noted in HPI and below Patient History Medical History Hx of ovarian cancer Ovarian cancer Diabetes Hyperlipidemia Renal insufficiency Seasonal allergic rhinitis History of breast cancer Social History household members: spouse Smoking Status: Former smoker Tobacco: How many years used: 2 alcohol intake: current substance use type: does not use Smoking Status: Former smoker alcohol intake frequency: a few times a month Substance Use Type: does not use Exam Initial Vital Signs Initial Vital Signs: Vital Signs Temperature 97.7 F 01/06/24 16:37 Pulse Rate 56 L 01/06/24 16:37 Respiratory Rate 16 01/06/24 16:37 Blood Pressure 216/93 H 01/06/24 16:37 Pulse Oximetry 98 01/06/24 16:37 Oxygen Delivery Method Room Air 01/06/24 16:37 Const General: cooperative, comfortable and No ill appearing HENMT Head: normal to inspection and normocephalic Resp Effort & Inspection: normal respiratory effort Auscultation: clear to auscultation bilaterally Cardio Rate: regular rate Rhythm: regular rhythm GI Inspection: normal to inspection and non-distended Palpation: soft, No firm, No guarding and tender (Mild tenderness upper abdomen, negative Klein's sign) Back/Spine/Pelvis Back: No CVA tenderness Skin General: no rashes or lesions noted Neuro General: patient alert, patient awake, patient oriented x3 and moves all extremities Course Orders Ordered: ED Orders 01/06/24 16:35 Ictotest Urine Stat Urine Microscopic Stat 01/06/24 16:43 EKG-12 Lead Stat 01/06/24 16:47 CA 15-3 Stat Cancer Antigen 125 Stat Complete Blood Count AUTO DIFF Stat Comprehensive Metabolic Panel Stat Lipase Stat Troponin & CK Cardiac Panel Stat 01/06/24 16:53 CXR [XR chest 2V] Stat 01/06/24 18:52 CT abdomen pelvis w con Stat Discontinued Medications Hydrocodone Bitart/Acetaminophen (Hydrocodone/Acet 5/325 Tablet) 1 tab PO NOW ONE Stop: 01/06/24 19:47 Last Admin: 01/06/24 19:54 Dose: 1 tab Documented By: Hydrocodone Bitart/Acetaminophen (Hydrocodone/Acet 5/325 Prepack) 1 bottle MISC DIRECTED ONE Stop: 01/06/24 20:33 Last Admin: 01/06/24 20:40 Dose: 1 bottle Documented By: Hydromorphone HCl (Hydromorphone 1 Mg Inj) 1 mg IV NOW ONE Stop: 01/06/24 18:06 Last Admin: 01/06/24 18:12 Dose: 1 mg Documented By: Ondansetron HCl (Ondansetron 4 Mg/2 Ml Inj) 4 mg IV NOW ONE Stop: 01/06/24 16:42 Last Admin: 01/06/24 16:45 Dose: 4 mg Documented By: Ondansetron HCl (Ondansetron 4 Mg Odt Prepack) 1 bottle MISC DIRECTED ONE Stop: 01/06/24 20:33 Last Admin: 01/06/24 20:40 Dose: 1 bottle Documented By: Pantoprazole Sodium (Pantoprazole 40 Mg Vial) 40 mg IV NOW ONE Stop: 01/06/24 20:33 Last Admin: 01/06/24 20:40 Dose: 40 mg Documented By: Vital Signs Vital signs: Vital Signs - 8 hr 01/06/24 17:57 01/06/24 17:58 01/06/24 17:58 Pulse Rate 45 L 44 L Respiratory Rate Blood Pressure 215/93 H Pulse Oximetry 98 100 01/06/24 18:00 01/06/24 18:00 01/06/24 18:30 Pulse Rate 44 L 48 L Respiratory Rate 17 19 Blood Pressure 205/90 H Pulse Oximetry 99 91 01/06/24 18:30 01/06/24 19:11 01/06/24 19:12 Pulse Rate 56 L Respiratory Rate 16 Blood Pressure 189/78 H 176/76 H Pulse Oximetry 93 01/06/24 19:12 01/06/24 19:30 01/06/24 19:30 Pulse Rate 55 L 50 L Respiratory Rate 14 Blood Pressure 158/69 H Pulse Oximetry 97 96 01/06/24 20:00 01/06/24 20:00 01/06/24 20:30 Pulse Rate 49 L Respiratory Rate Blood Pressure 149/67 H 166/73 H Pulse Oximetry 94 01/06/24 20:30 Pulse Rate 55 L Respiratory Rate Blood Pressure Pulse Oximetry 97 Medical Decision Making Medical Records Medical records reviewed: Yes I reviewed the patient's medical records. Lab Data Lab results reviewed: Yes I reviewed the patient's lab results. 01/06/24 16:47 01/06/24 16:47 Labs: Lab Results 01/06/24 01/06/24 Range/Units 16:35 16:47 WBC 9.9 (4.5-11.0) X10^3/uL RBC 4.13 (4.0-5.2) X10^6/uL Hgb 13.2 (12.0-16.0) g/dL Hct 38.7 (36-46) % MCV 93.8 (80-100) fL MCH 32.1 (26-34) PG MCHC 34.2 (30-36) % RDW 13.7 (11.6-14.8) % Plt Count 492 H (150-400) X10^3/uL Neut % (Auto) 79.1 H (50-75) % Lymph % (Auto) 17.2 L (25-40) % [place] % (Auto) 2.4 L (3-14) % Eos % (Auto) 0.3 L (2-4) % Baso % (Auto) 1.0 (0-2) % Neut # (Auto) 7800 H (1647-1364) /uL Lymph # (Auto) 1700 (3855-1609) /uL [place] # (Auto) 200 (0-900) /uL Eos # (Auto) 0 (0-450) /uL Baso # (Auto) 100 (0-100) /uL Sodium 134 L (137-145) mmol/L Potassium 4.6 (3.4-5.1) mmol/L Chloride 99 (98-107) mmol/L Carbon Dioxide 27 (22-32) mmol/L BUN 14 (7-17) mg/dL Creatinine 0.60 (0.52-1.04) mg/dL Estimated GFR > 60 (>60) mL/min BUN/Creatinine Ratio 23.3 H (6-22) Glucose 199 H (80-110) mg/dL Calcium 9.2 (8.4-10.2) mg/dL Total Bilirubin 0.4 (0.2-1.3) mg/dL AST 21 (14-36) IU/L ALT 10 (<35) IU/L Alkaline Phosphatase 98 (38-126) U/L Total Creatine Kinase 32 (30-135) U/L Troponin I < 0.012 (0.01-0.034) ng/mL Total Protein 7.6 (6.3-8.2) g/dL Albumin 4.2 (3.5-5.0) g/dL Globulin 3.4 (1.7-4.1) g/dL Albumin/Globulin Ratio 1.2 (1.0-2.8) Lipase 120 (23-300) U/L CA 125 Antigen 16.3 (0-35) U/mL Ur Bilirubin Confirm Negative (Negative) Urine RBC None seen (0-5/HPF) Urine WBC 0-1/hpf (0-5/HPF) Ur Squamous Epith Cells 0-1 /hpf (0-5/HPF) Urine Bacteria None seen (None) Ur Culture Indicated? Cult not indicated Vol Urine Centrifuged 10ml (spun) Urine Dip Bedside Urine Glucose Negative Bedside Urine Bilirubin + 1 Bedside Urine Ketone +++ 80 Urine Specific [place] 1.030 Bedside Urine Occult Blood - Negative Bedside Urine pH 5.5 Bedside Urine Protein +/- 15 Bedside Urine Urobilinogen - Negative Bedside Urine Nitrite - Negative Bedside Urine Leukocytes - Negative Esterase Point of care testing: Urine Dip Bedside Urine Glucose Negative Bedside Urine Bilirubin + 1 Bedside Urine Ketone +++ 80 Urine Specific [place] 1.030 Bedside Urine Occult Blood - Negative Bedside Urine pH 5.5 Bedside Urine Protein +/- 15 Bedside Urine Urobilinogen - Negative Bedside Urine Nitrite - Negative Bedside Urine Leukocytes - Negative Esterase Imaging Data CT scan - abdomen/pelvis: Radiologist's Impression: PROCEDURE: CT ABDOMEN PELVIS W CON INDICATIONS: Generalized abdominal pain with nausea. The patient has history of ovarian cancer and breast cancer. TECHNIQUE: After the administration of intravenous contrast, axial sections acquired from the lung bases to the pubic symphysis. Coronal and sagittal reformats were performed. For radiation dose reduction, the following was used: automated exposure control, adjustment of mA and/or kV according to patient size. COMPARISON: None. FINDINGS: Image quality: Diagnostic. Lower Chest: Left basilar atelectasis. Mild cardiomegaly. Moderate pericardial effusion. Left mastectomy. ABDOMEN: Liver: There is a 1.0 cm hypodense nodule in the right hepatic lobe. Liver is normal in size. Gallbladder: Gallbladder is mildly distended. No radiopaque gallstones Biliary ducts: No biliary dilation. Pancreas: No ductal dilation. Spleen: Size is within normal limits. Adrenal Glands: No adrenal nodules. Kidneys and Ureters: No hydronephrosis. No solid mass. No complex renal cystic lesion which requires follow up. Stomach and Bowel: Normal colonic caliber, without significant wall thickening. Peritoneum: There is small to moderate amount of ascites. There is amorphous soft tissue along the omentum without discrete nodule. No free air. Ventral Wall: No significant ventral hernia. Abdominal Nodes: No retroperitoneal or mesenteric adenopathy by size criteria. Vessels: Aorta and inferior vena cava are normal in size. PELVIS: Pelvic Organs: Hysterectomy and bilateral oophorectomy. There is a 3.6 x 2.6 cm cyst in right adnexa. Bladder: No bladder wall thickening, accounting for underdistention. Pelvic Nodes: No enlarged lymph nodes. Miscellaneous: No inguinal hernias are seen. Bones: No aggressive osseous abnormality. IMPRESSION: 1. Small to moderate amount of ascites. There is amorphous soft tissue in the omentum without discrete nodules. The CT findings are suspicious for peritoneal carcinomatosis in this patient with history of ovarian cancer. Please correlate with tumor markers. 2. A 3.6 x 2.6 cm cyst in the right adnexa, suspicious for recurrent neoplasm given history of ovarian cancer. 3. A 1 cm indeterminate hypodense nodule right hepatic lobe. Consider hepatic protocol CT if clinically indicated. 4. Small pericardial effusion. Atelectasis in the left lower lobe. 5. Left mastectomy. The result was discussed with Dr. Patrick in ER. Chest x-ray: Radiologist's Impression: PROCEDURE: XR CHEST 2V INDICATIONS: upper abdominal pain TECHNIQUE: 2 views of the chest were acquired. COMPARISON: [facility], , XR CHEST 2V, 12/27/2023, 11:16. FINDINGS: Surgical changes and devices: None. Lungs and pleura: Lungs are clear. No pleural effusions or pneumothorax. Mediastinum: Mediastinal contours are normal. Heart size is normal. Bones and chest wall: No suspicious bony abnormalities. Soft tissues appear unremarkable. IMPRESSION: No acute cardiopulmonary abnormality is seen. 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 She did have cancer markers in October of this year that were negative. The rest of her workup here in the emergency department is unremarkable. Potentially the abdominal discomfort is related to the findings of the CT scan today although I can not be 100% sure this. There does not appear to be another source of discomfort. We did discuss the possibility that this is a GI related issue and reflux disease. Will start her on a proton pump inhibitor to see if her symptoms do improve. I did discuss the case with Dr. Mulligan on-call farmworker rice. We will repeat some cancer markers today which were still pending at the time of her discharge. She has an appointment scheduled on Sunday of this week with Hematology to discuss an elevation in eosinophils. I advised that she talk with the cage tender of the time about the findings of the CT scan today. She understands that this is important for follow-up given her history. She was given return precautions. She expressed understanding and agreement. Discharge Plan Departure Patient Disposition: Home Clinical Impression: Abdominal pain Instructions: DI for Abdominal Pain-Adult Activity Restrictions/Additional Instructions: I recommend that you purchase an [id number] class of medicines caught a proton pump inhibitor. Examples of this include Nexium/Prilosec/esomeprazole/omeprazole. These are 1 time a day medications and normally a 14 day treatment course. You will be receiving a call from the tablet machine operator office is here at the hospital for a follow-up. Also keep your appointment on Sunday with hematology. Return to the emergency department for new or worsening symptoms. Prescriptions: New ondansetron 4 mg tablet,disintegrating 4 mg PO Q6H PRN (Reason: nausea and vomiting) Qty: 10 0RF hydrocodone-acetaminophen 5-325 mg tablet 1 tab PO Q8H PRN (Reason: pain) Qty: 10 0RF No Action benzonatate 200 mg capsule 200 mg PO BID PRN (Reason: cough) Qty: 30 0RF (DME) blood-glucose meter Kit See Rx Instructions .ROUTE .MEDSUPPLY Qty: 1 0RF Rx Instructions: Use to test blood glucose BID (DME) lancets [BD Ultra Fine Lancets] 33 gauge misc See Rx Instructions .ROUTE .MEDSUPPLY Qty: 100 6RF Rx Instructions: Use to test blood glucose twice daily (DME) True Metrix Glucose Test Strip Strip See Rx Instructions .ROUTE .COMPLEX Qty: 100 6RF Dose Instruction: USE TO TEST BLOOD GLUCOSE TWICE A DAY Rx Instructions: USE TO TEST BLOOD GLUCOSE TWICE A DAY metformin 1,000 mg tablet extended release 24 hr 1,000 mg PO DAILY Qty: 90 3RF dicyclomine 10 mg capsule 10 mg PO ONCE PRN (Reason: IBS) cetirizine [Aller-Dago] 10 mg Tablet 10 mg PO DAILY PRN (Reason: Allergy Symptoms) Referrals: Mia Mulligan MD [Physician] - Guero Kaiser MD [Primary Care Provider] - Stand Alone Forms: Patient Portal/API
[2024-01-06] MEDS: HYDROCODONE/ACET 5/325 TABLET 1 TAB PO (19:54)
[2024-01-06] MEDS: HYDROCODONE/ACET 5/325 PREPACK 1 BOTTLE MISC (20:40)
[2024-01-06] MEDS: ONDANSETRON 4 MG ODT PREPACK 1 BOTTLE MISC (20:40)
[2024-01-06] MEDS: PANTOPRAZOLE 40 MG VIAL IV (20:40)
[2024-01-06 21:58] LABS: Cancer Antigen 125 16.3 U/mL (0-35)
[2024-01-08 07:36] LABS: CA 15-3 14.5 U/mL (0.0-25.0)
== END 2024-01-06 20:51 | disposition home or self-care (01) ==
PROVIDERS: Emergency Medicine; Emergency Provider Emergency Medicine; PCP Family Medicine
DX: R10.10 Upper abdominal pain, unspecified (principal); R03.0 Elevated blood-pressure reading, without diagnosis of hypertension
CPT/HCPCS: 36415; 71046; 74177; 80053; 81003; 81015; 82550; 83690; 84484; 85025; 86300; 86304; 93005; 99284; C9113; J1170; J2405; Q9967

== ENCOUNTER 2024-01-07 20:12 | Inpatient (IN) | payer MEDICARE, OTHER, SELFPAY ==
[2024-01-07] VITALS (8 sets, daily range): BP systolic 186–216; BP diastolic 80–95; PULSE 46–55; RESP 17; TEMP 36.4; O2SAT 96–98; BMI 19.8
--- NOTE | 2024-01-07 22:49 | ED_ITS ---
HPI - General Adult General Chief complaint: Abdominal Pain Stated complaint: ABD Pain NVD Time Seen by Provider: 01/07/24 21:13 Source: patient Mode of arrival: Ambulatory History of Present Illness HPI narrative: Patient is a 63-year-old female. 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 Approximately 1-1.5 years ago she was cleared by Oncology as she would gone many years with negative surveillance normal cancer markers. I evaluated her here in the emergency department yesterday for abdominal discomfort. She would relatively unremarkable labs and a CT scan that showed a small amount of ascites but also some concern about new findings of malignancy in her peritoneum. Patient was subsequently discharged home. Had a telemedicine follow-up visit with her primary doctor today. She is scheduled to see Oncology initially for another reason within the next 48 hours. She returns to the emergency department today stating that her abdominal pain has worsened. She feels like her abdomen is becoming more distended. Is having quite a bit of nausea. Pain medication that was prescribed yesterday does not seem to be helping any of her discomfort. She denies any urinary symptoms. States she has not passed flatus in the past several hours. No chest pain or shortness of breath or fevers. Related Data Home Medications Medication Instructions Recorded Confirmed dicyclomine 10 mg capsule 10 mg PO ONCE PRN IBS 09/03/20 01/08/24 cetirizine 10 mg tablet (Aller-Dago) 10 mg PO DAILY PRN Allergy Symptoms 11/22/21 01/08/24 Previous Rx's Medication Instructions Recorded blood-glucose meter #1 ea 12/24/20 lancets 33 gauge (BD Ultra Fine #100 ea 12/24/20 Lancets) blood sugar diagnostic (True #100 strips 11/07/22 Metrix Glucose Test Strip) metformin 1,000 mg tablet,extended 1,000 mg PO DAILY #90 tabs 04/13/23 release 24hr (osmotic) benzonatate 200 mg capsule 200 mg PO BID PRN cough #30 caps 12/27/23 hydrocodone 5 mg-acetaminophen 325 1 tab PO Q8H PRN pain #30 tabs 01/07/24 mg tablet ondansetron 4 mg disintegrating 4 mg PO Q6H PRN nausea and 01/07/24 tablet vomiting #30 tabs Allergies Allergy/AdvReac Type Severity Reaction Status Date / Time cold Allergy Unknown Rash, Uncoded 01/07/24 20:25 swelling Metformin IR AdvReac Mild low grade Uncoded 01/07/24 20:25 nausea, cramping, constipation, and pervasive gas Review of Systems Review of Systems ROS Unobtainable: All systems reviewed & are unremarkable except as noted in HPI and below Patient History Medical History Hx of ovarian cancer Ovarian cancer Diabetes Hyperlipidemia Renal insufficiency Seasonal allergic rhinitis History of breast cancer Social History household members: spouse Smoking Status: Former smoker Tobacco: How many years used: 2 alcohol intake: current substance use type: does not use Smoking Status: Former smoker alcohol intake frequency: a few times a month Substance Use Type: does not use Exam Initial Vital Signs Initial Vital Signs: Vital Signs Temperature 97.5 F L 01/07/24 20:25 Pulse Rate 51 L 01/07/24 20:25 Respiratory Rate 17 01/07/24 20:25 Blood Pressure 216/95 H 01/07/24 20:25 Pulse Oximetry 97 01/07/24 20:25 Oxygen Delivery Method Room Air 01/07/24 20:25 Const General: cooperative and No ill appearing HENIL Head: normal to inspection and normocephalic Resp Effort & Inspection: normal respiratory effort Auscultation: clear to auscultation bilaterally Cardio Rate: regular rate Rhythm: regular rhythm GI Inspection: distended Palpation: soft, No firm, No guarding, No rigid, tender and No ascites Auscultation: other (Absent bowel sounds) Skin General: no rashes or lesions noted Neuro General: patient alert, patient awake and moves all extremities Extrem General: capillary refill normal Course Orders Ordered: ED Orders 01/07/24 22:50 CT abdomen pelvis w con Stat 01/07/24 23:00 Complete Blood Count AUTO DIFF Stat Comprehensive Metabolic Panel Stat Lactate (Lactic Acid) Stat Lipase Stat 01/08/24 00:57 Consult to General Surgery Stat Discontinued Medications Hydromorphone HCl (Hydromorphone 1 Mg Inj) 1 mg IV NOW ONE Stop: 01/07/24 23:55 Last Admin: 01/08/24 00:01 Dose: 1 mg Documented By: KW Sodium Chloride (Normal Saline 0.9%) 1,000 mls @ 1,000 mls/hr IV BOLUS ONE Stop: 01/07/24 23:48 Last Infusion: 01/08/24 00:22 Dose: Infused Documented By: Admin: 01/07/24 23:11 Dose: 1,000 mls/hr Documented By: WADE Morphine Sulfate (Morphine 4 Mg/Ml Inj) 4 mg IV NOW ONE Stop: 01/07/24 22:50 Last Admin: 01/07/24 23:11 Dose: 4 mg Documented By: WADE Ondansetron HCl (Ondansetron 4 Mg/2 Ml Inj) 4 mg IV NOW ONE Stop: 01/07/24 22:50 Last Admin: 01/07/24 23:11 Dose: 4 mg Documented By: WADE Vital Signs Vital signs: Vital Signs - 8 hr 01/07/24 20:25 01/07/24 21:53 01/07/24 21:54 Temperature 97.5 F L Pulse Rate 51 L Respiratory Rate 17 Blood Pressure 216/95 H 211/83 H Pulse Oximetry 97 98 Oxygen Delivery Method Room Air 01/07/24 21:54 01/07/24 22:00 01/07/24 22:30 Temperature Pulse Rate 48 L 46 L 47 L Respiratory Rate Blood Pressure Pulse Oximetry 98 96 97 Oxygen Delivery Method 01/07/24 23:00 01/07/24 23:23 01/07/24 23:23 Temperature Pulse Rate 49 L 55 L Respiratory Rate Blood Pressure 186/80 H Pulse Oximetry 96 97 Oxygen Delivery Method 01/07/24 23:30 01/08/24 00:02 01/08/24 00:03 Temperature Pulse Rate 51 L 46 L 46 L Respiratory Rate Blood Pressure Pulse Oximetry 96 97 98 Oxygen Delivery Method 01/08/24 00:03 01/08/24 00:12 01/08/24 00:12 Temperature Pulse Rate 45 L Respiratory Rate Blood Pressure 228/91 H 172/74 H Pulse Oximetry Oxygen Delivery Method 01/08/24 00:30 01/08/24 01:00 01/08/24 01:30 Temperature Pulse Rate 44 L 44 L 44 L Respiratory Rate Blood Pressure Pulse Oximetry 100 100 100 Oxygen Delivery Method Medical Decision Making Lab Data Lab results reviewed: Yes I reviewed the patient's lab results. 01/07/24 23:00 01/07/24 23:00 Labs: Lab Results 01/07/24 Range/Units 23:00 WBC 10.2 (4.5-11.0) X10^3/uL RBC 4.09 (4.0-5.2) X10^6/uL Hgb 13.1 (12.0-16.0) g/dL Hct 38.3 (36-46) % MCV 93.8 (80-100) fL MCH 32.0 (26-34) PG MCHC 34.1 (30-36) % RDW 13.5 (11.6-14.8) % Plt Count 473 H (150-400) X10^3/uL Neut % (Auto) 76.8 H (50-75) % Lymph % (Auto) 17.0 L (25-40) % Stanley % (Auto) 4.3 (3-14) % Eos % (Auto) 1.3 L (2-4) % Baso % (Auto) 0.6 (0-2) % Neut # (Auto) 7800 H (3663-3670) /uL Lymph # (Auto) 1700 (6183-8768) /uL Stanley # (Auto) 400 (0-900) /uL Eos # (Auto) 100 (0-450) /uL Baso # (Auto) 100 (0-100) /uL Sodium 133 L (137-145) mmol/L Potassium 4.3 (3.4-5.1) mmol/L Chloride 97 L (98-107) mmol/L Carbon Dioxide 30 (22-32) mmol/L BUN 12 (7-17) mg/dL Creatinine 0.52 (0.52-1.04) mg/dL Estimated GFR > 60 (>60) mL/min BUN/Creatinine Ratio 23.1 H (6-22) Glucose 179 H (80-110) mg/dL Lactate 0.9 (0.7-2.1) mmol/L Calcium 9.0 (8.4-10.2) mg/dL Total Bilirubin 0.4 (0.2-1.3) mg/dL AST 22 (14-36) IU/L ALT 8 (<35) IU/L Alkaline Phosphatase 91 (38-126) U/L Total Protein 7.5 (6.3-8.2) g/dL Albumin 4.2 (3.5-5.0) g/dL Globulin 3.3 (1.7-4.1) g/dL Albumin/Globulin Ratio 1.3 (1.0-2.8) Lipase 299 D (23-300) U/L Urine Dip Bedside Urine Glucose Negative Bedside Urine Bilirubin - Negative Bedside Urine Ketone ++ 40 Urine Specific [place] 1.010 Bedside Urine Occult Blood - Negative Bedside Urine pH 6.0 Bedside Urine Protein - Negative Bedside Urine Urobilinogen - Negative Bedside Urine Nitrite - Negative Bedside Urine Leukocytes - Negative Esterase Point of care testing: Urine Dip Bedside Urine Glucose Negative Bedside Urine Bilirubin - Negative Bedside Urine Ketone ++ 40 Urine Specific [place] 1.010 Bedside Urine Occult Blood - Negative Bedside Urine pH 6.0 Bedside Urine Protein - Negative Bedside Urine Urobilinogen - Negative Bedside Urine Nitrite - Negative Bedside Urine Leukocytes - Negative Esterase Imaging Data CT scan - abdomen/pelvis: Radiologist's Impression: PROCEDURE: CT ABDOMEN PELVIS W CON INDICATIONS: Worsening abdominal pain with distention and no bowel sounds TECHNIQUE: After the administration of intravenous contrast, axial sections acquired from the lung bases to the pubic symphysis. Coronal and sagittal reformats were performed. For radiation dose reduction, the following was used: automated exposure control, adjustment of mA and/or kV according to patient size. COMPARISON: [facility], CT, CT ABDOMEN PELVIS W CON, 01/06/2024, 19:01. FINDINGS: Image quality: Diagnostic. Lower Chest: Small pericardial effusion. ABDOMEN: Liver: Unchanged small hypoattenuating lesions in the right liver measuring up to 1 cm. Gallbladder: Julio's extrusion of contrast material is seen in the gallbladder without acute inflammatory changes. Biliary ducts: No biliary dilation. Pancreas: No ductal dilation. Spleen: Size is within normal limits. Adrenal Glands: No adrenal nodules. Kidneys and Ureters: No hydronephrosis. No solid mass. No complex renal cystic lesion which requires follow up. Stomach and Bowel: Mildly dilated distal small bowel loops are seen in the right lower quadrant without of single focal transitional point Peritoneum: Mild ascites is seen throughout the abdomen and pelvis. Ventral Wall: No significant ventral hernia. Abdominal Nodes: No retroperitoneal or mesenteric adenopathy by size criteria. Vessels: Aorta and inferior vena cava are normal in size. PELVIS: Pelvic Organs: Unchanged right adnexal 3.6 cm cyst. Status post hysterectomy. Bladder: No bladder wall thickening, accounting for underdistention. Pelvic Nodes: No enlarged lymph nodes. Miscellaneous: No inguinal hernias are seen. Bones: No aggressive osseous abnormality. IMPRESSION: 1. Increased mildly distended fluid-filled loops of small bowel in the right lower quadrant with multiple short segments of narrowing or peristalsis and no single focal transition point. 2. Small to moderate volume of ascites throughout the abdomen and pelvis. Possible amorphous omental signal again seen without clearly defined peritoneal implants, though peritoneal carcinomatosis is not excluded. 3. Unchanged right adnexal 3.6 cm cystic lesion. 4. Small pericardial effusion. 5. Stable nonspecific hypodensities in the right hepatic lobe. Liver protocol CT or MRI could be performed for further evaluation if indicated clinically. MDM Narrative Medical decision making narrative: Labs today are reassuring and similar to yesterday. She does have a more distended abdomen today compared to yesterday although it is soft and not a surgical abdomen. There is absent bowel sounds. Repeat CT scan shows similar amount of ascites and other findings are consistent although she does have increased distended small bowel loops without signs of overt obstruction. I did discuss the case with Dr. Quijano on-call with General surgery who recommended the patient be admitted to the medicine service with General surgery consultation for serial abdominal exams. I then discussed the case with Dr. Kaur hospitalist on-call who will admit. Discussed the need for admission with the patient. She expressed understanding and agreement with plan. Discharge Plan Departure Patient Disposition: Admitted as Observation Clinical Impression: Abdominal pain, Abdominal ascites, Ileus Admit Date/Time: 01/08/24 01:58 Admit Provider: Bob Porter
[2024-01-07] MEDS: MORPHINE 4 MG/ML INJ IV (23:11)
[2024-01-07] MEDS: SODIUM CHLORIDE 0.9% 1,000 ML 1000 ML IV (23:11)
[2024-01-07] MEDS: ONDANSETRON 4 MG/2 ML INJ IV (23:11)
[2024-01-07 23:12] LABS: Add Manual Diff / Slide Review NO; Basophils Absolute Auto 100 /uL (0-100); Basophils Percent Auto 0.6 % (0-2); Eosinophils Absolute Auto 100 /uL (0-450); Eosinophils Percent Auto 1.3 % (2-4); Hematocrit 38.3 % (36-46); Hemoglobin 13.1 g/dL (12.0-16.0); Lymphocytes Absolute Auto 1700 /uL (1100-4500); Mean Corpuscular HGB Conc 34.1 % (30-36); Mean Corpuscular Volume 93.8 fL (80-100); Monocytes Absolute Auto 400 /uL (0-900); Monocytes Percent Auto 4.3 % (3-14); Neutrophils Absolute Auto 7800 /uL (1500-7000); Neutrophils Percent Auto 76.8 % (50-75); Platelet Count 473 X10^3/uL (150-400); Red Blood Cell Count 4.09 X10^6/uL (4.0-5.2); Red Cell Distribution Width 13.5 % (11.6-14.8); White Blood Cell Count 10.2 X10^3/uL (4.5-11.0)
[2024-01-07 23:24] LABS: Alanine Aminotransferase 8 IU/L (<35); Aspartate Aminotransferase 22 IU/L (14-36); BUN Creatinine Ratio 23.1 (6-22); Bilirubin Total 0.4 mg/dL (0.2-1.3); Blood Urea Nitrogen 12 mg/dL (7-17); Carbon Dioxide 30 mmol/L (22-32); Chloride 97 mmol/L (98-107); Estimated Glomerular Filt Rate > 60 mL/min (>60); Glucose 179 mg/dL (80-110); HEMOLYSIS < 15 (0-50); Potassium 4.3 mmol/L (3.4-5.1); Sodium 133 mmol/L (137-145)
[2024-01-07 23:25] LABS: Albumin 4.2 g/dL (3.5-5.0); Albumin Globulin Ratio 1.3 (1.0-2.8); Alkaline Phosphatase 91 U/L (38-126); Globulin 3.3 g/dL (1.7-4.1); Lactate (Lactic Acid) 0.9 mmol/L (0.7-2.1); Lipase 299 U/L (23-300); Total Protein 7.5 g/dL (6.3-8.2)
[2024-01-08] VITALS (12 sets, daily range): BP systolic 145–228; BP diastolic 55–91; PULSE 44–53; RESP 14–18; TEMP 36.2–37; O2SAT 95–100; BMI 19.8
--- NOTE | 2024-01-08 | PATH_ITS ---
Note [facility] Accession Number: [id number] TESTS RESULT FLAG UNITS REF RANGE LAB Clinician Provided Cytology Information No. of containers..01 Other (Miscellaneous) Source: ABDOMINAL FLUID DIAGNOSIS: ABDOMINAL FLUID, PARACENTESIS. INCONCLUSIVE. FEW GROUPS OF ATYPICAL EPITHELIOID CELLS ARE PRESENT. THE DIFFERENTIAL DIAGNOSIS INCLUDES REACTIVE MESOTHELIAL ATYPIA VERSUS A NEOPLASTIC PROCESS. FURTHER CHARACTERIZATION IS PENDING IMMUNOHISTOCHEMICAL WORK-UP. THE FINAL DIAGNOSIS WILL BE REFLECTED IN THE ADDENDUM REPORT. THIS INTERPRETATION INCLUDES EVALUATION OF A CELL BLOCK. Pathologist ICD10: R18.8 Signed out by: Abundio Rose MD, Pathologist NPI- [id number] Performed by: Fareed Del Toro, Water Service Dispatcher ([facility]) Gross description: 45 CC, ORANGE, CLOUDY RECEIVED: FRESH IN BLUE CAP CONTAINER. /VDU 01/10/2024 [facility] Local FLAG LEGEND: L-Low Normal,H-High Normal,LL-Alert Low,HH-Alert High <-Panic Low,>-Panic High,A-Abnormal,AA-Critical Abnormal Performed at: 01 [address] [facility] [facility], [place] [address] Manohar Chris MD, Performed at: [address], [place], [place] [id number] MD Manohar Chris MD Phone: [phone]
[2024-01-08] MEDS: HYDROMORPHONE 1 MG INJ IV (00:01)
--- NOTE | 2024-01-08 04:10 | PM.HP.1 ---
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 She was considered cured and after close follow up for years, she was recently told that she won't need to continue surveillance. Yesterday she was seen in the ED with diffuse abdominal tenderness, had CT showing ascites and possible omental carcinomatosis. Seen by PCP later that day and scheduled to see oncology on 01/08. Today she came back as she became nauseated, vomited twice and did not pass gas or had BM< in 7-[address] looks similar the prior study. Dilated bowel loops, w/o transition point, ascites, suspected carcinomatosis. Placed in observation with ileus, at risk for SBO. [facility] Medical History Hx of ovarian cancer Ovarian cancer Diabetes Hyperlipidemia Renal insufficiency Seasonal allergic rhinitis History of breast cancer Surgical History (Updated 01/08/24 @ 07:57 by Bob Kaur MD) History of bilateral ligation of fallopian tubes Social History household members: spouse Smoking Status: Former smoker Tobacco: How many years used: 2 alcohol intake: current substance use type: does not use Meds Home Medications and Allergies Home Medications Medication Instructions Recorded Confirmed Type dicyclomine 10 mg capsule 10 mg PO ONCE PRN IBS 09/03/20 01/08/24 History blood-glucose meter #1 ea 12/24/20 01/08/24 Rx lancets 33 gauge (BD Ultra Fine #100 ea 12/24/20 01/08/24 Rx Lancets) cetirizine 10 mg tablet (Aller-Dago) 10 mg PO DAILY PRN Allergy Symptoms 11/22/21 01/08/24 History blood sugar diagnostic (True #100 strips 11/07/22 01/08/24 Rx Metrix Glucose Test Strip) metformin 1,000 mg tablet,extended 1,000 mg PO DAILY #90 tabs 04/13/23 01/08/24 Rx release 24hr (osmotic) benzonatate 200 mg capsule 200 mg PO BID PRN cough #30 caps 12/27/23 01/08/24 Rx hydrocodone 5 mg-acetaminophen 325 1 tab PO Q8H PRN pain #30 tabs 01/07/24 01/08/24 Rx mg tablet ondansetron 4 mg disintegrating 4 mg PO Q6H PRN nausea and 01/07/24 01/08/24 Rx tablet vomiting #30 tabs Allergies Allergy/AdvReac Type Severity Reaction Status Date / Time metformin AdvReac Mild low grade Verified 01/08/24 08:07 nausea, cramping, constipation, and pervasive gas Review of Systems Constitutional Comments: no fever, chills, weight changes, sweats, diaphoresis Cardiovascular Comments: w/o chest pain Respiratory Comments: w/o shortness of breath Gastrointestinal Comments: tender, slightly distended, nausea, vomitted twice. No BM / flatus in ~ 8 hours. Without prior SBOs but had an episode of ileus following hysterectomy. Noticed Bentyl on a medication list after the admission - not clear if she has a Hx of IBS, at least did not mention it on admission. Genitourinary Comments: w/o dysuria Exam Vital Signs (past 8 hours): - 01/07/24 20:25 01/07/24 21:53 01/07/24 21:54 Temperature 97.5 F L Pulse Rate 51 L Respiratory Rate 17 Blood Pressure 216/95 H 211/83 H Pulse Oximetry 97 98 Oxygen Delivery Method Room Air 01/07/24 21:54 01/07/24 22:00 01/07/24 22:30 Temperature Pulse Rate 48 L 46 L 47 L Respiratory Rate Blood Pressure Pulse Oximetry 98 96 97 Oxygen Delivery Method 01/07/24 23:00 01/07/24 23:23 01/07/24 23:23 Temperature Pulse Rate 49 L 55 L Respiratory Rate Blood Pressure 186/80 H Pulse Oximetry 96 97 Oxygen Delivery Method 01/07/24 23:30 01/08/24 00:02 01/08/24 00:03 Temperature Pulse Rate 51 L 46 L 46 L Respiratory Rate Blood Pressure Pulse Oximetry 96 97 98 Oxygen Delivery Method 01/08/24 00:03 01/08/24 00:12 01/08/24 00:12 Temperature Pulse Rate 45 L Respiratory Rate Blood Pressure 228/91 H 172/74 H Pulse Oximetry Oxygen Delivery Method 01/08/24 00:30 01/08/24 01:00 01/08/24 01:30 Temperature Pulse Rate 44 L 44 L 44 L Respiratory Rate Blood Pressure Pulse Oximetry 100 100 100 Oxygen Delivery Method 01/08/24 02:00 01/08/24 02:44 Temperature Pulse Rate 49 L Respiratory Rate Blood Pressure 145/67 H Pulse Oximetry 100 Oxygen Delivery Method Room Air Oxygen Delivery Method Room Air Const Other: in no distress, laying in bed HENMT Other: oropharynx of normal appearance Eyes Other: reactive, equal, EOMI Neck Other: supple Resp Other: normal respiratory effort Cardio Other: RRR GI Other: minimally distended, hypoactive to absent bowel sounds, w/o peritoneal signs Skin Other: not jaundiced Neuro Other: w/o deficits Extrem Other: w/o swelling Psych Other: lucid, appropriate mood Objective Labs 01/07/24 23:00 01/07/24 23:00 Labs: Laboratory Results - last 24 hr 01/07/24 23:00 WBC 10.2 RBC 4.09 Hgb 13.1 Hct 38.3 MCV 93.8 MCH 32.0 MCHC 34.1 RDW 13.5 Plt Count 473 H Neut % (Auto) 76.8 H Lymph % (Auto) 17.0 L Pr[place] % (Auto) 4.3 Eos % (Auto) 1.3 L Baso % (Auto) 0.6 Neut # (Auto) 7800 H Lymph # (Auto) 1700 [place] # (Auto) 400 Eos # (Auto) 100 Baso # (Auto) 100 Sodium 133 L Potassium 4.3 Chloride 97 L Carbon Dioxide 30 BUN 12 Creatinine 0.52 Estimated GFR > 60 BUN/Creatinine Ratio 23.1 H Glucose 179 H Lactate 0.9 Calcium 9.0 Total Bilirubin 0.4 AST 22 ALT 8 Alkaline Phosphatase 91 Total Protein 7.5 Albumin 4.2 Globulin 3.3 Albumin/Globulin Ratio 1.3 Lipase 299 D Assessment & Plan Assessment and plan (1) Ileus: Status: Acute (2) History of breast cancer: Status: Acute (3) History of bilateral ligation of fallopian tubes: Status: Acute (4) Abdominal ascites: Status: Acute (5) Personal history of colonic polyps: Status: Acute (6) Diabetes: Qualifiers: Diabetes mellitus type: type 2 Diabetes mellitus laborer marine terminal insulin use: without laborer marine terminal use Diabetes mellitus complication status: without complication Qualified Code(s): E11.9 - Type 2 diabetes mellitus without complications Status: Acute (7) Hyperlipidemia: Qualifiers: Hyperlipidemia type: mixed hyperlipidemia Qualified Code(s): E78.2 - Mixed hyperlipidemia Status: Acute Assessment & Plan narrative: 1. Ileus, at risk for SBO - NPO, IVFs, no need for NGT decompression - Sx aware - she should avoid Bentyl and narcotics - she was taking [place] obtained the day before in the ED 2. Peritoneal Cracinomatosis? - has scheduled oncology follow up tomorrow - that would be her third malignancy: s/p Lt mastectomy with following chemotherapy 10 yrs ago for carcinoma s/p hysterectomy with Lt ovariectomy for Fallopian tube carcinoma, followed by chemoTx, also ~ 10 years ago 3. NIDDM - on metformin, held - SS, CBG q 6 h, D5NS GI prophylaxis - PPI DVT prophylaxis - Lovenox
[2024-01-08] MEDS: DEXTROSE 5%-0.9% NS 1,000 ML 100 ML IV ×2 (04:39→14:48)
[2024-01-08] MEDS: PANTOPRAZOLE 40 MG VIAL 20 MG IV (06:05)
[2024-01-08] MEDS: ACETAMINOPHEN 325 MG TABLET 650 MG PO (06:11)
--- NOTE | 2024-01-08 06:35 | PC.NURSE ---
Pt aware there is an order to insert NGT, but patient would like to speak to surgeon first. Pt denies nausea, no vomiting since patient has been on floor. Lab attempted blood draw twice, no success. Will pass on to day shift that patient may need a line
[2024-01-08] MEDS: HYDROMORPHONE 0.5 MG INJ IV ×6 (08:17→21:59)
--- NOTE | 2024-01-08 08:22 | DI.CT.S_ITS ---
PROCEDURE: CT ABDOMEN LIVER PROTOCOL INDICATIONS: liver masses TECHNIQUE: 4 phase scanning was performed. Non-contrast 5 mm axial sections acquired from the diaphragm to the iliac crests. Following the administration of intravenous contrast, 5 mm thick arterial-phase, portal venous-phase, and 5-minute delayed phase images were acquired through the liver. 5 mm thick coronal and sagittal reformats were performed. For radiation dose reduction, the following was used: automated exposure control, adjustment of mA and/or kV according to patient size. COMPARISON: [facility], CT, CT ABDOMEN PELVIS W CON, 01/06/2024, 19:01. [facility], CT, CT ABDOMEN PELVIS W CON, 01/07/2024, 23:00. FINDINGS: Image quality: Diagnostic Lower chest: Bibasilar opacities, slightly increased. No drainable pleural effusion. Possible small pericardial effusion partially seen. There is cardiomegaly. Liver: 1.2 cm right lobe lesion is again seen there is a bright dot sign on coronal arterial phase images (4/32). The lesion appears indistinct on delayed phase images. There is a hypervascular lesion also seen incidentally noted in the left lobe (3/16). This measures 6 mm. Gallbladder and biliary system: Gallbladder sludge versus contrast excretion. No biliary ductal dilation Pancreas: No ductal dilation Spleen: Nonenlarged Adrenals: No discrete nodules Kidneys: No solid mass. No hydronephrosis. There is renal contrast excretion. The left kidney is relatively atrophic compared to the right. Subcentimeter lesions are present, usually cysts, but too small to characterize. Vessels and lymph nodes: The main portal vein appears patent. No abdominal aortic aneurysm. There is diffuse retroperitoneal fat stranding without discrete enlarged lymph node Bowel and peritoneum: Diffuse mid mesenteric omental fat stranding and [id number] ascites. Prominent loops of small bowel, without discrete obstruction. Body wall: Unremarkable Bones: Degenerative changes. IMPRESSION: The right lobe liver lesion is confirmed, possibly a cavernous hemangioma, though not definitive on CT. Hypervascular left lobe lesion also seen under 1 cm, possibly a capillary hemangioma. Diffuse omental and mesenteric fat stranding with ascites, most compatible for carcinomatosis given ovarian cancer history. In the setting of malignancy history, consider follow-up oncologic staging. Liver MRI could also be helpful. Other findings above. Dictated by: Gato Owusu M.D. on 01/08/2024 at 8:53 Approved by: Gato Owusu M.D. on 01/08/2024 at 9:02
--- NOTE | 2024-01-08 08:28 | P.HP_ITS ---
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 She was considered cured and after close follow up for years, she was recently told that she won't need to continue surveillance. Yesterday she was seen in the ED with diffuse abdominal tenderness, had CT showing ascites and possible omental carcinomatosis. Seen by PCP later that day and scheduled to see oncology on 01/08. Today she came back as she became nauseated, vomited twice and did not pass gas or had BM< in 7-[address] looks similar the prior study. Dilated bowel loops, w/o transition point, ascites, suspected carcinomatosis. Placed in observation with ileus, at risk for SBO. This morning: Patient's NV and abd pain is improved, but she is still quite distended and hasn't passed any gas. CT liver obtained to assess lesions and shows hemangiomas and likely peritoneal carcinomatosis. US abd shows small ascietes and right cystic adnexal mass. Discussed with patient these findings. Dr. Quijano gen surg thinks she needs transfer for GRADUATE STUDENT INSTRUCTOR biopsy and oncology consult. Doesn't think her NV, abd pain will resolve enough to go home. photography coordinator working on transfer. [facility] Medical History Hx of ovarian cancer Ovarian cancer Diabetes Hyperlipidemia Renal insufficiency Seasonal allergic rhinitis History of breast cancer Surgical History (Updated 01/08/24 @ 07:57 by Bob Kaur MD) History of bilateral ligation of fallopian tubes Social History household members: spouse Smoking Status: Former smoker Tobacco: How many years used: 2 alcohol intake: current substance use type: does not use Meds Home Medications and Allergies Home Medications Medication Instructions Recorded Confirmed Type dicyclomine 10 mg capsule 10 mg PO ONCE PRN IBS 09/03/20 01/08/24 History blood-glucose meter #1 ea 12/24/20 01/08/24 Rx lancets 33 gauge (BD Ultra Fine #100 ea 12/24/20 01/08/24 Rx Lancets) cetirizine 10 mg tablet (Aller-Dago) 10 mg PO DAILY PRN Allergy Symptoms 11/22/21 01/08/24 History blood sugar diagnostic (True #100 strips 11/07/22 01/08/24 Rx Metrix Glucose Test Strip) metformin 1,000 mg tablet,extended 1,000 mg PO DAILY #90 tabs 04/13/23 01/08/24 Rx release 24hr (osmotic) benzonatate 200 mg capsule 200 mg PO BID PRN cough #30 caps 12/27/23 01/08/24 Rx hydrocodone 5 mg-acetaminophen 325 1 tab PO Q8H PRN pain #30 tabs 01/07/24 01/08/24 Rx mg tablet ondansetron 4 mg disintegrating 4 mg PO Q6H PRN nausea and 01/07/24 01/08/24 Rx tablet vomiting #30 tabs Allergies Allergy/AdvReac Type Severity Reaction Status Date / Time metformin AdvReac Mild low grade Verified 01/08/24 08:07 nausea, cramping, constipation, and pervasive gas Review of Systems Constitutional Comments: no fever, chills, weight changes, sweats, diaphoresis Cardiovascular Comments: w/o chest pain Respiratory Comments: w/o shortness of breath Gastrointestinal Comments: nausea, vomited twice. No BM / flatus in ~ 8 hours. Without prior SBOs but had an episode of ileus following hysterectomy. Genitourinary Comments: w/o dysuria Exam Vital Signs (past 8 hours): - 01/08/24 00:30 01/08/24 01:00 01/08/24 01:30 Temperature Pulse Rate 44 L 44 L 44 L Respiratory Rate Blood Pressure Pulse Oximetry 100 100 100 Oxygen Delivery Method Oxygen Flow Rate 01/08/24 02:00 01/08/24 02:44 01/08/24 04:02 Temperature Pulse Rate 49 L Respiratory Rate Blood Pressure 145/67 H Pulse Oximetry 100 100 Oxygen Delivery Method Room Air Room Air Oxygen Flow Rate 01/08/24 04:40 Temperature 97.2 F L Pulse Rate 47 L Respiratory Rate 18 Blood Pressure 150/55 H Pulse Oximetry 95 Oxygen Delivery Method Oxygen Flow Rate 0 Oxygen Delivery Method Room Air Oxygen Flow Rate 0 Const Other: in no distress, laying in bed HENMT Other: oropharynx of normal appearance Eyes Other: reactive, equal, EOMI Neck Other: supple Resp Other: normal respiratory effort Cardio Other: RRR GI Other: distended, tender in epigastric region, hypoactive to absent bowel sounds, w/o peritoneal signs Skin Other: not jaundiced Neuro Other: w/o deficits Extrem Other: w/o swelling Psych Other: lucid, appropriate mood Objective Labs 01/07/24 23:00 01/07/24 23:00 Labs: Laboratory Results - last 24 hr 01/07/24 23:00 WBC 10.2 RBC 4.09 Hgb 13.1 Hct 38.3 MCV 93.8 MCH 32.0 MCHC 34.1 RDW 13.5 Plt Count 473 H Neut % (Auto) 76.8 H Lymph % (Auto) 17.0 L [place] % (Auto) 4.3 Eos % (Auto) 1.3 L Baso % (Auto) 0.6 Neut # (Auto) 7800 H Lymph # (Auto) 1700 [place] # (Auto) 400 Eos # (Auto) 100 Baso # (Auto) 100 Sodium 133 L Potassium 4.3 Chloride 97 L Carbon Dioxide 30 BUN 12 Creatinine 0.52 Estimated GFR > 60 BUN/Creatinine Ratio 23.1 H Glucose 179 H Lactate 0.9 Calcium 9.0 Total Bilirubin 0.4 AST 22 ALT 8 Alkaline Phosphatase 91 Total Protein 7.5 Albumin 4.2 Globulin 3.3 Albumin/Globulin Ratio 1.3 Lipase 299 D Assessment & Plan Assessment & Plan narrative: 1. Likely ileus from problem #2 - NGT decompression if begins vomiting - Surgery consulted, ok with advancing to clears - IV dilaudid PRN 2. Suspect newly diagnosed peritoneal carcinomatosis - s/p Lt mastectomy with following chemotherapy 10 yrs ago for carcinoma, in remission - s/p hysterectomy with Lt ovariectomy for Fallopian tube carcinoma, followed by chemoTx, also ~ 10 years ago - CT abd with omental and mesenteric fat stranding with ascites concerning for recurrence of ovarian cancer - abd US with right cystic adnexal mass measuring 5.5x2.7x4cm concerning for recurrent cancer - spoke with Dr. Borden who recommends tissue biopsy and CT chest to look for pulm mets - CT chest negative 3. NIDDM - on metformin, held - SS, CBG q 6 h, D5NS GI prophylaxis - PPI DVT prophylaxis - Lovenox Dispo: Unclear. Attempting transfer for biopsy and GRADUATE STUDENT INSTRUCTOR-onc consultation.
--- NOTE | 2024-01-08 09:13 | DI.US.S_ITS ---
PROCEDURE: US ABDOMEN LIMITED INDICATIONS: POSSIBLE MALIGNANT ASCITIES TECHNIQUE: Real-time focused scanning was performed of the abdomen, with image documentation. COMPARISON: [facility], CT, CT ABDOMEN LIVER PROTOCOL, 01/08/2024, 8:20. [facility], CT, CT ABDOMEN PELVIS W CON, 01/07/2024, 23:00. [facility], CT, CT ABDOMEN PELVIS W CON, 01/06/2024, 19:01. FINDINGS: There is a small amount of ascites in the right lower quadrant. A cystic mass is seen in the right adnexa measuring 5.5 x 2.7 x 4.0 cm. IMPRESSION: 1. Small amount of ascites. 2. A cystic mass in the right adnexa. In this patient with ovarian cancer, it is suspicious for recurrent disease. Dictated by: Sivan Gann M.D. on 01/08/2024 at 10:57 Approved by: Sivan Gann M.D. on 01/08/2024 at 11:01
[2024-01-08] MEDS: ENOXAPARIN 40 MG/0.4 ML SYRINGE SUBCUT (09:30)
[2024-01-08] MEDS: LORATADINE 10 MG TABLET PO (10:26)
--- NOTE | 2024-01-08 11:37 | DI.CT.S_ITS ---
PROCEDURE: CT CHEST W CON INDICATIONS: look for pulm mets, new carcinomatosis in abdomen TECHNIQUE: After the administration of intravenous contrast, 5 mm thick sections acquired from the pulmonary apices to the posterior costophrenic angles. 1 mm axial lung, 5 mm thick coronal and sagittal reformats and 7 mm axial MIP were acquired. For radiation dose reduction, the following was used: automated exposure control, adjustment of mA and/or kV according to patient size. COMPARISON: None. FINDINGS: Image quality: Diagnostic. Lower Neck: No enlarged lymph nodes. Thyroid: No thyroid nodules which require sonographic follow up, per consensus guidelines. Axillae: No enlarged lymph nodes. Chest Wall: Prior left mastectomy. Bones: Unremarkable. Lungs and Pleura: No pneumothorax or pleural effusions. Dependent atelectasis. No suspicious nodules. Heart: Heart size is normal. Small pericardial effusion. Thoracic Vessels: The aorta and pulmonary arteries demonstrate normal size. Mediastinum and Wendy: No enlarged lymph nodes. Esophagus: No wall thickening. No hiatal hernia. Upper Abdomen: No acute disease process in the visualized abdomen. IMPRESSION: No evidence of metastatic disease involving the chest. Small pericardial effusion. Dictated by: Melissa Lopez MD, PhD on 01/08/2024 at 11:58 Approved by: Melissa Lopez MD, PhD on 01/08/2024 at 12:01
--- NOTE | 2024-01-08 14:52 | PM.CN ---
History of Present Illness Consult details Date Patient Seen: 01/08/24 Time Patient Seen: 14:52 Chief complaint: ABD Pain NVD Reason for consult: Abd pain Requesting provider: Vijay North Narrative: 63yo female with recent weight loss, abd pain and nausea with emesis. H/o gynocologic tumor and breast cancer simultaneous about [address] scan and US of abdomen are concerning for recurrence of cancer. She has ascites, carcinomatosis, and a right adnexal cystic mass (5.5 x 2.7 x 4.3cm). Currently not having BMs or passing gas. Serial CT scans indicate that the stomach can at least tolerate normal secretions as her presenting gastric distension has decreased just by being NPO Meds Home Medications and Allergies Home Medications Medication Instructions Recorded Confirmed Type dicyclomine 10 mg capsule 10 mg PO ONCE PRN IBS 09/03/20 01/08/24 History blood-glucose meter #1 ea 12/24/20 01/08/24 Rx lancets 33 gauge (BD Ultra Fine #100 ea 12/24/20 01/08/24 Rx Lancets) cetirizine 10 mg tablet (Aller-Dago) 10 mg PO DAILY PRN Allergy Symptoms 11/22/21 01/08/24 History blood sugar diagnostic (True #100 strips 11/07/22 01/08/24 Rx Metrix Glucose Test Strip) metformin 1,000 mg tablet,extended 1,000 mg PO DAILY #90 tabs 04/13/23 01/08/24 Rx release 24hr (osmotic) benzonatate 200 mg capsule 200 mg PO BID PRN cough #30 caps 12/27/23 01/08/24 Rx hydrocodone 5 mg-acetaminophen 325 1 tab PO Q8H PRN pain #30 tabs 01/07/24 01/08/24 Rx mg tablet ondansetron 4 mg disintegrating 4 mg PO Q6H PRN nausea and 01/07/24 01/08/24 Rx tablet vomiting #30 tabs Allergies Allergy/AdvReac Type Severity Reaction Status Date / Time metformin AdvReac Mild low grade Verified 01/08/24 08:07 nausea, cramping, constipation, and pervasive gas Review of Systems Review of Systems Narrative: reports she has no ovaries since surgery ROS: Yes All systems reviewed with the patient and are negative except as otherwise documented Exam Vital Signs (past 8 hours): - 01/08/24 09:09 Temperature 97.7 F Pulse Rate 47 L Respiratory Rate 14 Blood Pressure 152/56 H Pulse Oximetry 96 Oxygen Flow Rate 0 Oxygen Delivery Method Room Air Oxygen Flow Rate 0 Const General: cooperative, comfortable and No in distress Nutritional Appearance: thin HENMT Head: normocephalic and atraumatic Eyes General: appearance normal, both eyes and all related structures Sclera: sclerae normal Neck Neck: trachea midline and No JVD Resp Effort & Inspection: normal respiratory effort and able to speak in complete sentences Cardio Rate: bradycardic Rhythm: regular rhythm GI Inspection: distended Palpation: soft, firm, No guarding and No rigid Skin General: atrophy Neuro General: patient alert, patient awake and patient oriented x3 Cognition: normal cognition Psych Mental Status: mental status grossly normal Judgment: judgment good Objective Labs 01/07/24 23:00 01/07/24 23:00 Labs: Laboratory Results - last 24 hr 01/07/24 23:00 WBC 10.2 RBC 4.09 Hgb 13.1 Hct 38.3 MCV 93.8 MCH 32.0 MCHC 34.1 RDW 13.5 Plt Count 473 H Neut % (Auto) 76.8 H Lymph % (Auto) 17.0 L [place] % (Auto) 4.3 Eos % (Auto) 1.3 L Baso % (Auto) 0.6 Neut # (Auto) 7800 H Lymph # (Auto) 1700 [place] # (Auto) 400 Eos # (Auto) 100 Baso # (Auto) 100 Sodium 133 L Potassium 4.3 Chloride 97 L Carbon Dioxide 30 BUN 12 Creatinine 0.52 Estimated GFR > 60 BUN/Creatinine Ratio 23.1 H Glucose 179 H Lactate 0.9 Calcium 9.0 Total Bilirubin 0.4 AST 22 ALT 8 Alkaline Phosphatase 91 Total Protein 7.5 Albumin 4.2 Globulin 3.3 Albumin/Globulin Ratio 1.3 Lipase 299 D [facility] Medical History Hx of ovarian cancer Ovarian cancer Diabetes Hyperlipidemia Renal insufficiency Seasonal allergic rhinitis History of breast cancer Surgical History History of bilateral ligation of fallopian tubes Social History household members: spouse Tobacco & Substance Use Smoking Status: Former smoker Tobacco: How many years used: 2 alcohol intake: current substance use type: does not use Assessment & Plan Assessment & Plan narrative: Most likely recurrence of one of her cancers. We are working to transfer her to a facility that can address her oncology needs. Plan: Transfer to a large facility, if she is delayed, she would be amendable to Xlap here for tissue diagnosis. We had a long talk about the importance of nutrition and the likely van that her bowel may not work until she receives treatment for metastatic dz. Time Spent With Patient Time with patient: 30 to 49 minutes with 50% spent counseling/coordinating care
--- NOTE | 2024-01-08 15:33 | CM.DANOTE ---
DCP Assessment Note- Brief Pt is a 63yo F here with ABD pain and n/v. 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 US abd shows small ascietes and right cystic adnexal mass....gen surg thinks she needs transfer for FILTER PLANT SUPERVISOR biopsy and oncology consult. PCP Gu[facility] [employer] and pre[employer] INSTRUCTOR ADJUNCT PHARMACY TECHNICIAN reviewed EMR. Per hospitalist in morning rounds, working on treating n/v and pain, maybe biopsy of tissue with Dr. Aguilar. Per RN, pt ambulating at baseline and she did not want NG tube. Per surgeon note, recommending transfer. INSTRUCTOR ADJUNCT PHARMACY TECHNICIAN attempted to meet with pt twice, either meeting with surgeon or down for CT. Per chart review, pt lives in [place] with spouse Julian and chart indicates that she is indep at baseline. P: Pending medical plan of care. potential transfer vs biopsy here for tissue diagnosis. CM Team will continue to follow closely. DESIRE Spring Discharge Planning/Care Management CM Discharge Assessment Start: 01/08/24 15:30 Freq: Status: Active Protocol: Document 01/08/24 15:31 (Rec: 01/08/24 15:32 [id number]) Discharge Planning Assessment Assigned Real Estate Recruiter DESIRE Buck DPOA/Assigned Designee Name Julian, spouse Contact Information [phone] Advance Directives? Yes Advance Directives on File No History Provided By Patient Prior Living Arrangements House Household Members spouse Independent with ADL's Yes Is patient alert and oriented? Yes Discharge Plan Transfer to Higher Level of Care Additional Comment site acquisition specialist working on transfer to higher level of care Whiteboard Updated in Patient Room with No name and ext. # of Real Estate Recruiter Review Status In Process Please Provide Date Initial DC 01/08/24 Assessment Was Performed Next Review Type Continued Stay Review
[2024-01-08] MEDS: OXYCODONE IR 5 MG TABLET PO (17:38)
[2024-01-09] VITALS (7 sets, daily range): BP systolic 101–178; BP diastolic 47–71; PULSE 57–88; RESP 12–16; TEMP 36.7–37.1; O2SAT 94–97; BMI 18.9
[2024-01-09] MEDS: OXYCODONE IR 10 MG TABLET PO ×2 (00:09→06:10)
[2024-01-09] MEDS: DEXTROSE 5%-0.9% NS 1,000 ML 100 ML IV ×2 (01:16→11:46)
[2024-01-09] MEDS: HYDROMORPHONE 0.5 MG INJ IV ×3 (04:40→18:40)
[2024-01-09] MEDS: PANTOPRAZOLE 40 MG VIAL 20 MG IV (06:10)
--- NOTE | 2024-01-09 08:30 | DI.RAD.S_ITS ---
PROCEDURE: XR ABDOMEN 1V INDICATIONS: assess for dilated bowel loops TECHNIQUE: One view of the abdomen acquired. COMPARISON: None. FINDINGS: Surgical changes and devices: None. Bowel: Bowel gas pattern is normal. Soft tissues: No suspicious abdominal calcifications. Visualized solid organ contours appear normal in size. Bones: No suspicious bony lesions. IMPRESSION: Nonobstructive bowel gas pattern. Dictated by: Myles Maldonado M.D. on 01/09/2024 at 9:41 Approved by: Myles Maldonado M.D. on 01/09/2024 at 9:41
[2024-01-09] MEDS: ENOXAPARIN 40 MG/0.4 ML SYRINGE SUBCUT (09:13)
[2024-01-09] MEDS: LORATADINE 10 MG TABLET PO (09:13)
[2024-01-09] MEDS: HYDROMORPHONE 0.5 MG INJ 1 MG IV ×2 (10:19→21:33)
--- NOTE | 2024-01-09 10:40 | CM.DPNOTE ---
Addendum entered by DESIRE Spring 01/09/24 15:49: SECURITY LEAD attempted to meet with pt in room. With Dr. Aguilar in OR for diagnostic laparoscopy, possible laparotomy with omental biopsy. P: remains unclear, potential transfer still pending. CM team will follow closely. SL Original Note: DCP Note SECURITY LEAD reviewed EMR. Per hospitalist in morning rounds, continue to purse transfer for pt's new/returning cancer diagnosis. Ideally, prov sophie for their PELLET MILL OPERATOR oncology specialists. Per hospitalist, pt may get tissue biopsy here later today from Dr. Aguilar. P: Pending medical plan of care. potential transfer vs biopsy here for tissue diagnosis. CM Team will continue to follow closely. DESIER Spring
[2024-01-09] MEDS: LACTATED RINGERS 1,000 ML 42 ML IV (14:42)
[2024-01-09] MEDS: ACETAMINOPHEN IV 1,000 MG/100 ML VIAL 400 MG IV (14:42)
--- NOTE | 2024-01-09 15:02 | P.PN_ITS ---
Subjective Subjective Interval history: Patient able to tolerate some liquids, but abd pain and distention not improved. She is still requiring IV dilaudid. Spoke with IR who recommended ex lap for biopsy given no discernable lesion on CT abdomen. Dr. Lauren parekh surg will take for ex lap today. Working on transfer process for mowing machine operator onc consultation. Exam Vital Signs (past 8 hours): - 01/09/24 14:27 Temperature 98.7 F Pulse Rate 57 L Respiratory Rate 16 Blood Pressure 178/71 H Pulse Oximetry 96 Oxygen Delivery Method Room Air Oxygen Delivery Method Room Air Oxygen Flow Rate 0 Const Other: uncomfortable-appearing, laying in bed HENMT Other: oropharynx of normal appearance Eyes Other: reactive, equal, EOMI Neck Other: supple Resp Other: normal respiratory effort Cardio Other: RRR GI Other: distended, tender in epigastric region, hypoactive to absent bowel sounds, w/o peritoneal signs Skin Other: not jaundiced Neuro Other: w/o deficits Extrem Other: w/o swelling Psych Other: lucid, appropriate mood Objective Labs 01/07/24 23:00 01/07/24 23:00 [facility] Medical History Hx of ovarian cancer Ovarian cancer Diabetes Hyperlipidemia Renal insufficiency Seasonal allergic rhinitis History of breast cancer Surgical History History of bilateral ligation of fallopian tubes Social History household members: spouse Smoking Status: Former smoker Tobacco: How many years used: 2 alcohol intake: current substance use type: does not use Assessment & Plan Assessment & Plan narrative: 1. Likely ileus from problem #2 - NGT decompression if begins vomiting - Surgery consulted - IV dilaudid and po oxy PRN 2. Suspect newly diagnosed peritoneal carcinomatosis, due to cancer recurrence - s/p Lt mastectomy with following chemotherapy 10 yrs ago for carcinoma, in remission - s/p hysterectomy with Lt ovariectomy for Fallopian tube carcinoma, followed by chemoTx, also ~ 10 years ago and in remission - CT abd with omental and mesenteric fat stranding with ascites concerning for recurrence of ovarian cancer - abd US with right cystic adnexal mass measuring 5.5x2.7x4cm concerning for recurrent cancer - spoke with Dr. Borden who recommends tissue biopsy - CT chest negative - NPO for ex lap with Dr. Aguilar on 01/08 3. NIDDM - on metformin, held - SS, CBG q 6 h, D5NS GI prophylaxis - PPI DVT prophylaxis - Lovenox Dispo: Unclear. Awaiting ex lap and attempting transfer for TECHNICIAN TELECOMMUNICATION SYSTEMS-onc consultation.
--- NOTE | 2024-01-09 15:05 | PM.CALLCOV.1 ---
Call Coverage Note Note Date of Patient Contact: 01/09/24 Time of Patient Contact: 15:05 Narrative of Care Provided: 64 year old woman history of ovarian breast cancer with possible recurrent ovarian cancer. Needs tissue diagnosis. Plan is for diagnostic laparoscopy, possible laparotomy with omental biopsy. Overview of the procedure discussed. Operative risks including hemorrhage, infection, intestinal injury, chronic wound discussed. She provides her consent to proceed.
[2024-01-09] MEDS: CEFAZOLIN 2 GM/100 ML PREMIX 100 ML IV (15:45)
--- NOTE | 2024-01-09 15:51 | SUR.OPER ---
Supine on padded OR bed, head on pillow, arms secured on padded arm boards at <90 degrees abduction, legs uncrossed, safety belt at thigh, tape over blanket over lower legs.
[2024-01-09] MEDS: BUPIVACAINE 0.25% (PF) VIAL 30 ML INJ (15:58)
--- NOTE | 2024-01-09 16:59 | PM.OP.1 ---
Operative Date/Time/Diagnoses Date of procedure: 01/09/24 Time of procedure: 16:59 Pre-op diagnosis: recurrent ovarian cancer Post-op diagnosis: same Procedure & Clinicians Procedure: Diagnostic laparoscopy Biopsy of omentum Same procedure as scheduled: Yes Indications: Marianna is a 64-year-old woman with a history breast and left fallopian tube carcinoma. She underwent hysterectomy and salpingectomy 2012 followed by Taxitere abd carboplatin chemotherapy for 6 cycles in [place]. She is admitted to [facility] for abdominal pain she underwent a CT abdomen pelvis which demonstrates omental caking and ascites. She is taken to the operating room for diagnostic laparoscopy to establish diagnosis. Surgeon: Farshad Aguilar Cafe Team Member: Sreekanth Thomas Anesthesia Type: General Operative Notes Findings: 300 mL of ascites within the pelvis. Gelatinous implants involving the small bowel and omentum. She has very minimal omentum. Specimen(s): other (Abdominal fluid, omentum) Estimated Blood Loss (mL): 10 Procedure in detail: Patient was brought to the operating room placed supine on table. Bilateral lower extremity compression devices were applied. General anesthesia was induced he was intubated with an endotracheal tube. She was then prepped and draped in sterile fashion. Time-out performed. We made a cut down on the left upper quadrant. The skin was incised fascia was grasped elevated sharply incised and the abdomen was entered atraumatically. Pneumoperitoneum was established. Additional working ports were placed near the umbilicus and the left lower quadrant. General inspection of the abdomen was made demonstrated dilated loops of small bowel. Within the pelvis there was 300mL of ascites which was suctioned out and sent for cytology. There were gelatinous appearing implants on the small bowel, colon and omentum. She has a minimal amount of omentum however 2 small pieces of omentum were resected using the LigaSure and sent for pathology. Hemostasis was checked. Sponge and instrument count was correct x2. The fascia was then closed using Vicryl suture in [id number] fashion. Skin incisions were closed with Monocryl followed by Dermabond. She emerged from anesthesia and was transferred to recovery in stable condition. Complications: none Post-operative Condition: stable Disposition: Acute Care
--- NOTE | 2024-01-09 17:45 | DI.RAD.S_ITS ---
PROCEDURE: XR CHEST FOR PICC 1V INDICATIONS: line placement COMPARISON: [facility], CR, XR CHEST 2V, 01/06/2024, 16:53. FINDINGS: PICC was placed by the intravenous therapy team from the right side. Fluoroscopic spot film demonstrates the tip of PICC projecting to the area of cavoatrial junction. IMPRESSION: Tip of PICC projects to the area of cavoatrial junction. Dictated by: Leatha Heck M.D. on 01/09/2024 at 18:43 Approved by: Leatha Heck M.D. on 01/09/2024 at 18:43
[2024-01-09] MEDS: fentaNYL 25 MCG/PATCH TOP (18:39)
[2024-01-09] MEDS: AA 5 %/CALCIUM/LYTES/DEXT 20 % 1,000 ML with MULTIVITAMIN 10 ML, TRACE ELEMENTS 1 ML 42.125 ML IV (18:39)
[2024-01-09] MEDS: INSULIN LISPRO 100 UNIT/ML 3ML VIAL SUBCUT (20:31)
[2024-01-10] MEDS: HYDROMORPHONE 0.5 MG INJ 1 MG IV ×3 (01:01→14:13)
[2024-01-10] MEDS: INSULIN LISPRO 100 UNIT/ML 3ML VIAL SUBCUT ×3 (02:26→18:02)
[2024-01-10] MEDS: OXYCODONE IR 10 MG TABLET PO ×5 (04:58→23:31)
[2024-01-10 05:00] VITALS: O2SAT 98
[2024-01-10 05:06] VITALS: BP 174/65; PULSE 58; RESP 18; TEMP 36.6; O2SAT 98
[2024-01-10 06:02] LABS: Alanine Aminotransferase 9 IU/L (<35); Albumin 3.2 g/dL (3.5-5.0); Albumin Globulin Ratio 1.2 (1.0-2.8); Alkaline Phosphatase 59 U/L (38-126); Aspartate Aminotransferase 21 IU/L (14-36); BUN Creatinine Ratio 13.7 (6-22); Bilirubin Total 0.3 mg/dL (0.2-1.3); Blood Urea Nitrogen 7 mg/dL (7-17); Calcium 8.2 mg/dL (8.4-10.2); Carbon Dioxide 32 mmol/L (22-32); Chloride 101 mmol/L (98-107); Estimated Glomerular Filt Rate > 60 mL/min (>60); Globulin 2.6 g/dL (1.7-4.1); Glucose 178 mg/dL (80-110); HEMOLYSIS < 15 (0-50); Magnesium 1.7 mg/dL (1.6-2.3); Phosphorous 3.4 mg/dL (2.8-4.1); Potassium 4.1 mmol/L (3.4-5.1); Sodium 135 mmol/L (137-145); Total Protein 5.8 g/dL (6.3-8.2); Triglycerides 124 mg/dL (35-150)
[2024-01-10 06:11] LABS: Prealbumin 12.2 mg/dL (17.6-36.0)
[2024-01-10] MEDS: PANTOPRAZOLE 40 MG VIAL 20 MG IV (06:11)
[2024-01-10 08:00] VITALS: BP 183/67; PULSE 53; RESP 14; TEMP 36.7; O2SAT 98
--- NOTE | 2024-01-10 08:13 | PC.NURSE ---
Addendum entered by Mary Beth Goncalves R.N. 01/10/24 18:25: Patients tpn infusing at 63ml/hr, patient is tolerating this well. She is resting in bed, 12mcg fentanyl patch added to her 12mcg patch for a total of 25mcg. She has not had a bm this shift. went home for the night and she is resting in bed. Addendum entered by Mary Beth Goncalves R.N. 01/10/24 09:35: into talk with patient and he has increased her diet to start eating, patient will continue her TPN at this time. in room visiting. Original Note: Patient is sitting up in her chair and is on clear liquids. She has 3 small lap incisions that are durmobonded and cdi. Patient is a one person assist with walker (if needed) for stability. She has been up to the bathroom and is sitting up in he chair for some clear liquids. She is tolerating her TPN.
[2024-01-10] MEDS: ENOXAPARIN 40 MG/0.4 ML SYRINGE SUBCUT (08:25)
[2024-01-10] MEDS: LORATADINE 10 MG TABLET PO (08:25)
[2024-01-10] MEDS: SODIUM CHLORIDE 0.9% FLUSH 10 ML IV ×2 (08:26→23:31)
--- NOTE | 2024-01-10 10:36 | DIET.CONS ---
Dietary Consultation Note Admission Date: 01/09/2024 11:15 Assessment: 64 y F admitted for abd pain and n/v. Nutrition screened for pt started on TPN. Met with pt at bedside, reports a decrease in intake starting 1 month ago w/ <75% of her usual intake due to symptoms from cold and bronchitis. Last 3 days she has not had any po intake. Advanced to soft, low fiber diet this afternoon as tolerated. TPN started last evening a 1 L Clinimix / running at 42 ml/hr. Mg, K+, and phos ordered and WNL today. Nutrition focused physical exam performed: -Mild loss temporalis muscle, mild loss in clavicle region. No other significant findings. Areas assessed: temporalis, clavicle region, interosseous, buccal and orbital fat pads, triceps Ht: 160.02 cm Wt: 48.534 kg BMI: 19.8 UBW: 52.27 kg per pt report 1 m ago; 52.418 kg on 12/27/23 per chart (-7% wt loss within 1 month, severe) Last BM: 01/07/24 (01/09/24 14:23) MNA: 11 Jorge Score: 20 Diet: 01/10/24 Breakfast Clear Liquid Diet Diet Modifications: 01/10/24 Lunch Soft,Low Fiber (Low residue) Diet Diet Modifications: bring ensures Food Texture: Level 7 - Regular Liquid Consistency: Level 0 - Thin Nutrition Percent Meal Consumed 100% 01/10/24 08:00 Labs: RBC 4.09 X10^6/uL (4.0-5.2) 01/07/24 23:00 Hgb 13.1 g/dL (12.0-16.0) 01/07/24 23:00 Hct 38.3 % (36-46) 01/07/24 23:00 Creatinine 0.51 mg/dL (0.52-1.04) L 01/10/24 04:51 Lactate 0.9 mmol/L (0.7-2.1) 01/07/24 23:00 Nutrition Diagnosis: Severe Acute Protein Calorie Malnutrition r/t decreased appetite and altercations in GI function/structure as evidenced by 7% weight loss in 1 month, severe, <75% of estimated energy intake in 1 month per diet recall, mild muscle loss (temporalis, pectoralis major, deltoid, trapezius), omental caking, BMI 18.9 (underweight for age) The patient is at much higher risk for medical and surgical complications because of their malnutrition. This increases the difficulty and complexity of medical and surgical interventions and increases the chances of poor outcomes such as morbidity and mortality Interventions: 1. Recc advancing continuous TPN of Clinimix /20 to goal rate of 1.5 L running at 62 ml/hr with 250 ml IVFE 3x/wk for 1534 kcals and 75 g protein meeting 95% of estimated energy needs and 100% of estimated protein needs. 2. Continue to monitor Mg, K+, phos for signs of refeeding syndrome for first 3 days EER: 3056-1852 kcal (35 kcals/kg per BMI, suspected peritoneal carcinomatosis) 70-75 g protein (1.5 g/kg protein per malnutrition) Monitoring/Evaluations: labs, po tolerance, TPN advancement Electronically Signed by: Hyacinth Jalloh 01/10/24 10:36 Clinical Dietitian [address] [address]
--- NOTE | 2024-01-10 11:56 | PM.PN.1 ---
Subjective Subjective Interval history: Patient in some more pain this morning and received po oxycodone. She is advancing her diet some, but surgery still wants TPN for at least 1 month. Exam Vital Signs (past 8 hours): - 01/10/24 05:00 01/10/24 05:06 01/10/24 08:00 Temperature 97.8 F 98.0 F Pulse Rate 58 L 53 L Respiratory Rate 18 14 Blood Pressure 174/65 H 183/67 H Pulse Oximetry 98 98 98 Oxygen Delivery Method Room Air Oxygen Flow Rate 0 Oxygen Delivery Method Room Air Oxygen Flow Rate 0 Const Other: uncomfortable-appearing, laying in bed HENMT Other: oropharynx of normal appearance Eyes Other: reactive, equal, EOMI Neck Other: supple Resp Other: normal respiratory effort Cardio Other: RRR GI Other: distended, tender in epigastric region, hypoactive to absent bowel sounds, w/o peritoneal signs Skin Other: not jaundiced Neuro Other: w/o deficits Extrem Other: w/o swelling Psych Other: lucid, appropriate mood Objective Labs 01/07/24 23:00 01/10/24 04:51 Labs: Laboratory Results - last 24 hr 01/10/24 04:51 Sodium 135 L Potassium 4.1 Chloride 101 Carbon Dioxide 32 BUN 7 Creatinine 0.51 L Estimated GFR > 60 BUN/Creatinine Ratio 13.7 Glucose 178 H Calcium 8.2 L Phosphorus 3.4 Magnesium 1.7 Total Bilirubin 0.3 AST 21 ALT 9 Alkaline Phosphatase 59 Total Protein 5.8 L Albumin 3.2 L Globulin 2.6 Albumin/Globulin Ratio 1.2 Prealbumin 12.2 L Triglycerides 124 PFSH Medical History Hx of ovarian cancer Ovarian cancer Diabetes Hyperlipidemia Renal insufficiency Seasonal allergic rhinitis History of breast cancer Surgical History History of bilateral ligation of fallopian tubes Social History household members: spouse Smoking Status: Former smoker Tobacco: How many years used: 2 alcohol intake: current substance use type: does not use Assessment & Plan Assessment & Plan narrative: 1. Likely ileus from problem #2 - NGT decompression if begins vomiting - Surgery consulted - IV dilaudid and po oxy PRN, started fentanyl patch - has PICC with TPN due to poor po intake and malnutrition 2. 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 Borden who recommends tissue biopsy, had ex lap on 01/08 with piece of omentum and mucinous deposits sent to pathology, also ascites - Dr. Borden will f/up on biopsy and see patient in clinic to discuss treatment options, he would like a text or call on discharge to get her scheduled in his clinic - Dr. Borden asked about having a port placed while inpatient, patient not 100% sure she will do chemo yet. 3. NIDDM - on metformin, held - SS, CBG q 6 h, D5NS 4. Severe Acute Protein Calorie Malnutrition r/t decreased appetite and altercations in GI function/structure as evidenced by 7% weight loss in 1 month, severe, <75% of estimated energy intake in 1 month per diet recall, mild muscle loss (temporalis, pectoralis major, deltoid, trapezius), omental caking, BMI 18.9 (underweight for age). Patient requiring parenteral nutrition via PICC due to a functional impairment of the gastrointestinal tract secondary to ileus. Enteral nutrition not an option due to ileus, NV and abdominal pain. TPN therapy will be required for > 90 days and will provide the majority of the patient's nutrition. [facility] to manage tube feedings/TPN. Managing MD for this is her PCP Dr. Guero Kaiser. GI prophylaxis - PPI DVT prophylaxis - Lovenox Dispo: Awaiting home infusions for TPN to be arranged. 1-2 days.
--- NOTE | 2024-01-10 15:43 | CM.DPNOTE ---
DCP Cont According to Dr Aguilar, patient will require at least one month of home TPN, to be reevaluated outpatient. Spoke with patient and spouse, reviewed discharge plan. Patient/spouse report no agency preference for home infusion. Placed call to Garcia at [facility] P [phone]; faxed requested clinical to include Dr North's updated prog note, MAR, labs, PICC line insertion note and combination machine tool operator's note. According to Garcia, [facility] dictates patient have specific criteria be met, which Dr North addressed in his prog note today 6.01.27. Dr Aguilar requests PCP DR Kaiser be the outpatient provider that will manage ongoing TPN orders. Placed call to Dr Kaiser's office, learned that he is out of the office today and tomorrow. LM for Garcia at [facility] to update on above. [place] from Dr North that patient is expected to be here through the weekend as her pain is not a tolerable level for return home at this time. Plan: Discharge home w/spouse and family with [facility] for home TPN is anticipated. Close outpatient follow up for review of path results. CM team following closely for coordination of discharge plan. LILLI
[2024-01-10] MEDS: fentaNYL 12 MCG/PATCH TOP (16:01)
[2024-01-10] MEDS: AA 5 %/CALCIUM/LYTES/DEXT 20 % 1,500 ML with MULTIVITAMIN 10 ML, TRACE ELEMENTS 1 ML 62.958 ML IV (18:16)
[2024-01-10 20:00] VITALS: BP 160/71; PULSE 54; RESP 15; TEMP 36.7; O2SAT 96
[2024-01-10] MEDS: ACETAMINOPHEN 325 MG TABLET 650 MG PO (23:31)
[2024-01-11] MEDS: HYDROMORPHONE 0.5 MG INJ 1 MG IV (02:22)
[2024-01-11] MEDS: INSULIN LISPRO 100 UNIT/ML 3ML VIAL SUBCUT ×4 (02:23→17:48)
[2024-01-11 05:00] VITALS: O2SAT 92
[2024-01-11] MEDS: OXYCODONE IR 10 MG TABLET PO ×4 (05:39→19:06)
[2024-01-11] MEDS: PANTOPRAZOLE DR 20 MG TABLET PO (05:39)
[2024-01-11 06:54] LABS: BUN Creatinine Ratio 25.9 (6-22); Blood Urea Nitrogen 14 mg/dL (7-17); Calcium 8.2 mg/dL (8.4-10.2); Carbon Dioxide 33 mmol/L (22-32); Chloride 100 mmol/L (98-107); Estimated Glomerular Filt Rate > 60 mL/min (>60); Glucose 129 mg/dL (80-110); HEMOLYSIS < 15 (0-50); Magnesium 1.7 mg/dL (1.6-2.3); Phosphorous 4.4 mg/dL (2.8-4.1); Potassium 4.1 mmol/L (3.4-5.1); Sodium 135 mmol/L (137-145)
[2024-01-11] MEDS: LORATADINE 10 MG TABLET PO (09:31)
[2024-01-11] MEDS: ENOXAPARIN 40 MG/0.4 ML SYRINGE SUBCUT (09:32)
[2024-01-11] MEDS: SODIUM CHLORIDE 0.9% FLUSH 10 ML IV ×2 (09:32→21:40)
[2024-01-11 10:45] VITALS: BP 121/60; PULSE 60; TEMP 36.7; O2SAT 95
--- NOTE | 2024-01-11 11:33 | PC.NURSE ---
Patient seems to be having better pain control after fentanyl patch increased to 25mcg. Given oxycodone 10mg for discomfort and helpful to patient for her abdominal discomfort. She is slightly distended and her bowel tones are hypoactive x4 quadrants. Up and ambulated in the halls with her earlier. Tolerating her tpn well.
[2024-01-11] MEDS: polyethylene glycoL 3350 17 GM POWD.PACK PO (12:27)
[2024-01-11] MEDS: DOCUSATE 100 MG CAPSULE PO ×2 (12:27→21:40)
--- NOTE | 2024-01-11 13:45 | PM.PN.1 ---
Subjective Subjective Interval history: Still no gas or BM. Tolerating clears somewhat. Remains on TPN. She feels much better with fentanyl patch and more comfortable. Exam Vital Signs (past 8 hours): - 01/11/24 10:45 Temperature 98.0 F Pulse Rate 60 Blood Pressure 121/60 Pulse Oximetry 95 Oxygen Flow Rate 0 Oxygen Delivery Method Room Air Oxygen Flow Rate 0 Const Other: comfortable upright sitting in chair HENMT Other: oropharynx of normal appearance Eyes Other: reactive, equal, EOMI Neck Other: supple Resp Other: normal respiratory effort Cardio Other: RRR GI Other: mildly distended, tender in epigastric region, hypoactive to absent bowel sounds, w/o peritoneal signs Skin Other: not jaundiced Neuro Other: w/o deficits Extrem Other: w/o swelling Psych Other: lucid, appropriate mood Objective Labs 01/07/24 23:00 01/11/24 06:15 Labs: Laboratory Results - last 24 hr 01/11/24 06:15 Sodium 135 L Potassium 4.1 Chloride 100 Carbon Dioxide 33 H BUN 14 Creatinine 0.54 Estimated GFR > 60 BUN/Creatinine Ratio 25.9 H Glucose 129 H Calcium 8.2 L Phosphorus 4.4 H D Magnesium 1.7 PFSH Medical History Hx of ovarian cancer Ovarian cancer Diabetes Hyperlipidemia Renal insufficiency Seasonal allergic rhinitis History of breast cancer Surgical History History of bilateral ligation of fallopian tubes Social History household members: spouse Smoking Status: Former smoker Tobacco: How many years used: 2 alcohol intake: current substance use type: does not use Assessment & Plan Assessment & Plan narrative: 1. Likely ileus from problem #2 - NGT decompression if begins vomiting - Surgery consulted - IV dilaudid and po oxy PRN, started fentanyl patch with improvment will continue these today. Consider increase in fentanyl patch to reduce prn opiate use. - has PICC with TPN due to poor po intake and malnutrition, ideally discharge home without tpn depending on improvement in diet from ileus. Continue low residue diet for now, can eat as much as tolerated. 2. 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 Borden who recommends tissue biopsy, had ex lap on 01/08 with piece of omentum and mucinous deposits sent to pathology, also ascites - Dr. Borden will f/up on biopsy and see patient in clinic to discuss treatment options, he would like a text or call on discharge to get her scheduled in his clinic - Dr. Borden asked about having a port placed while inpatient, patient not 100% sure she will do chemo yet. 3. NIDDM - on metformin, held - SS, CBG q 6 h, D5NS 4. Severe Acute Protein Calorie Malnutrition r/t decreased appetite and altercations in GI function/structure as evidenced by 7% weight loss in 1 month, severe, <75% of estimated energy intake in 1 month per diet recall, mild muscle loss (temporalis, pectoralis major, deltoid, trapezius), omental caking, BMI 18.9 (underweight for age). Patient requiring parenteral nutrition via PICC due to a functional impairment of the gastrointestinal tract secondary to ileus. Enteral nutrition not an option due to ileus, NV and abdominal pain. TPN therapy will be required for > 90 days and will provide the majority of the patient's nutrition. [facility] to manage tube feedings/TPN. Managing MD for this is her PCP Dr. Guero Kaiser. GI prophylaxis - PPI DVT prophylaxis - Lovenox Dispo: Possible discharge home without TPN if able to tolerate PO intake after ileus postop. If unable by Sunday can discharge home with TPN at that time. Discussed with case management and surgery today.
--- NOTE | 2024-01-11 16:41 | CM.DPNOTE ---
DCP Cont Patient discussed in multidisciplinary rounds. Dr Jorge plans to keep patient admitted this weekend, and will see if she can tolerate a diet. If she can, no need for home TPN. Spoke with manager document at Dr Kaiser's office; Manan Becerra (deenie) [phone] who gave verbal approval on Dr Kaiser's behalf to manage ongoing TPN orders. Later updated Manan that DR Jorge hopeful patient will not need home TPN although this will be reevaluated Sunday. Spoke with Fanny at [facility], updated with information above. TPN will not be mixed over the weekend. [facility] will be waiting for an update Sunday. CM team will continue to follow closely for coordination. LILLI
[2024-01-11] MEDS: FAT EMULSIONS 50 GM/250 ML EMULSION IV (17:48)
[2024-01-11] MEDS: [UNRECOGNIZED DRUG - OTHER] IV (17:49)
[2024-01-11] MEDS: LYTES IV (17:49)
[2024-01-11] MEDS: CALCIUM IV (17:49)
[2024-01-11] MEDS: MAGNESIUM SULFATE IV (17:49)
[2024-01-11] MEDS: DEXT IV (17:49)
[2024-01-12] MEDS: OXYCODONE IR 10 MG TABLET PO ×5 (04:06→21:34)
[2024-01-12] MEDS: PANTOPRAZOLE DR 20 MG TABLET PO (06:00)
[2024-01-12] MEDS: DOCUSATE 100 MG CAPSULE PO ×2 (08:00→21:34)
[2024-01-12] MEDS: SODIUM CHLORIDE 0.9% FLUSH 10 ML IV (08:00)
[2024-01-12] MEDS: ENOXAPARIN 40 MG/0.4 ML SYRINGE SUBCUT (08:00)
[2024-01-12] MEDS: LORATADINE 10 MG TABLET PO (08:00)
[2024-01-12] MEDS: ACETAMINOPHEN 325 MG TABLET 650 MG PO ×2 (08:20→17:25)
[2024-01-12] MEDS: INSULIN LISPRO 100 UNIT/ML 3ML VIAL SUBCUT (12:00)
[2024-01-12] MEDS: ONDANSETRON 4 MG/2 ML INJ IV (12:10)
[2024-01-12] MEDS: ONDANSETRON 4 MG ODT PO (12:10)
[2024-01-12 16:00] VITALS: BP 135/54; PULSE 66; RESP 16; TEMP 36.4; O2SAT 96
--- NOTE | 2024-01-12 17:31 | PC.NURSE ---
EMR downtime from 01/11/24 @ 1999 to 01/12/24 @ approximately 1600. Refer to paper documentation.
[2024-01-12] MEDS: fentaNYL 25 MCG/PATCH TOP (18:33)
[2024-01-12 18:48] LABS: Add Manual Diff / Slide Review NO; Basophils Absolute Auto 100 /uL (0-100); Basophils Percent Auto 1.1 % (0-2); Eosinophils Absolute Auto 200 /uL (0-450); Eosinophils Percent Auto 2.3 % (2-4); Hematocrit 32.4 % (36-46); Lymphocytes Absolute Auto 3100 /uL (1100-4500); Lymphocytes Percent Auto 33.6 % (25-40); Mean Corpuscular Volume 94.1 fL (80-100); Monocytes Absolute Auto 500 /uL (0-900); Monocytes Percent Auto 4.9 % (3-14); Neutrophils Absolute Auto 5400 /uL (1500-7000); Neutrophils Percent Auto 58.1 % (50-75); Platelet Count 347 X10^3/uL (150-400); Red Blood Cell Count 3.44 X10^6/uL (4.0-5.2); Red Cell Distribution Width 13.7 % (11.6-14.8); White Blood Cell Count 9.4 X10^3/uL (4.5-11.0)
[2024-01-12 18:49] LABS: BUN Creatinine Ratio 27.6 (6-22); Blood Urea Nitrogen 16 mg/dL (7-17); Calcium 8.1 mg/dL (8.4-10.2); Carbon Dioxide 33 mmol/L (22-32); Chloride 99 mmol/L (98-107); Estimated Glomerular Filt Rate > 60 mL/min (>60); Glucose 161 mg/dL (80-110); HEMOLYSIS < 15 (0-50); Magnesium 1.9 mg/dL (1.6-2.3); Phosphorous 3.8 mg/dL (2.8-4.1); Potassium 3.7 mmol/L (3.4-5.1); Sodium 135 mmol/L (137-145)
[2024-01-12] MEDS: TPN IV (18:50)
[2024-01-13] VITALS (7 sets, daily range): BP systolic 123–141; BP diastolic 50–80; PULSE 61–74; RESP 16–17; TEMP 35.9–37; O2SAT 96–98
[2024-01-13 06:06] LABS: Add Manual Diff / Slide Review NO; Basophils Absolute Auto 100 /uL (0-100); Basophils Percent Auto 1.2 % (0-2); Eosinophils Absolute Auto 200 /uL (0-450); Hematocrit 28.9 % (36-46); Hemoglobin 9.9 g/dL (12.0-16.0); Lymphocytes Absolute Auto 2900 /uL (1100-4500); Lymphocytes Percent Auto 40.6 % (25-40); Mean Corpuscular HGB Conc 34.3 % (30-36); Mean Corpuscular Hemoglobin 32.2 PG (26-34); Mean Corpuscular Volume 93.9 fL (80-100); Monocytes Absolute Auto 300 /uL (0-900); Monocytes Percent Auto 4.2 % (3-14); Neutrophils Absolute Auto 3600 /uL (1500-7000); Platelet Count 279 X10^3/uL (150-400); Red Blood Cell Count 3.08 X10^6/uL (4.0-5.2); Red Cell Distribution Width 13.9 % (11.6-14.8); White Blood Cell Count 7.1 X10^3/uL (4.5-11.0)
[2024-01-13] MEDS: INSULIN LISPRO 100 UNIT/ML 3ML VIAL SUBCUT ×3 (06:06→17:50)
[2024-01-13] MEDS: PANTOPRAZOLE DR 20 MG TABLET PO (06:07)
[2024-01-13 06:17] LABS: BUN Creatinine Ratio 35.2 (6-22); Blood Urea Nitrogen 19 mg/dL (7-17); Carbon Dioxide 35 mmol/L (22-32); Chloride 102 mmol/L (98-107); Estimated Glomerular Filt Rate > 60 mL/min (>60); Glucose 142 mg/dL (80-110); HEMOLYSIS < 15 (0-50); Phosphorous 3.5 mg/dL (2.8-4.1); Potassium 3.9 mmol/L (3.4-5.1); Sodium 135 mmol/L (137-145)
[2024-01-13] MEDS: DOCUSATE 100 MG CAPSULE PO ×2 (08:37→21:13)
[2024-01-13] MEDS: ENOXAPARIN 40 MG/0.4 ML SYRINGE SUBCUT (08:38)
[2024-01-13] MEDS: LORATADINE 10 MG TABLET PO (08:38)
[2024-01-13] MEDS: OXYCODONE IR 10 MG TABLET PO (12:45)
--- NOTE | 2024-01-13 13:26 | CM.DPNOTE ---
DCP Note TECHNICIAN TERMINAL AND REPEATER reviewed EMR/paper chart. TECHNICIAN TERMINAL AND REPEATER spoke with Mark from [facility]. Got referral, will check in with Garcia tomorrow for cost/final coordination of TPN. Per hospitalist in morning rounds, continue to want to try to tolerate clears and diet without TPN another day. Anticipate needing TPN at ct, hopeful for tomorrow. Per RN, pt has had no vomiting. Able to tolerate PO medication. Pt remains in a lot of pain. TECHNICIAN TERMINAL AND REPEATER met with pt and spouse in room. Reviewed [facility] plan and how we'll know more tomorrow. Pt and spouse appreciated update. Report no further questions at this time. P: Anticipate home with spouse and TPN through [facility] Sunday. CM team will follow closely. DESIRE Spring
--- NOTE | 2024-01-13 16:11 | PM.PN.1 ---
Subjective Subjective Interval history: Still no gas or BM. Tolerating some solid intake. Remains on TPN. She feels much better with fentanyl patch and more comfortable after it was increased to 75 mcg, using very little oxycodone now. Feels like she may have some gas or bowel movement coming. Exam Vital Signs (past 8 hours): - 01/13/24 08:19 01/13/24 12:26 Temperature 97.1 F L 97.0 F L Pulse Rate 61 68 Respiratory Rate 16 16 Blood Pressure 123/50 L 123/52 L Pulse Oximetry 97 97 Oxygen Flow Rate 0 0 Oxygen Delivery Method Room Air Oxygen Flow Rate 0 Const Other: comfortable upright sitting in chair HENMT Other: oropharynx of normal appearance Eyes Other: reactive, equal, EOMI Neck Other: supple Resp Other: normal respiratory effort Cardio Other: RRR GI Other: S NT ND today (improved) Skin Other: not jaundiced Neuro Other: w/o deficits Extrem Other: w/o swelling Psych Other: lucid, appropriate mood Objective Labs 01/13/24 06:00 01/13/24 06:00 Labs: Laboratory Results - last 24 hr 01/12/24 01/13/24 05:05 06:00 WBC 9.4 7.1 RBC 3.44 L 3.08 L Hgb 11.0 L 9.9 L Hct 32.4 L 28.9 L MCV 94.1 93.9 MCH 32.0 32.2 MCHC 34.0 34.3 RDW 13.7 13.9 Plt Count 347 279 Neut % (Auto) 58.1 51.0 Lymph % (Auto) 33.6 40.6 H Pershing % (Auto) 4.9 4.2 Eos % (Auto) 2.3 3.0 Baso % (Auto) 1.1 1.2 Neut # (Auto) 5400 3600 Lymph # (Auto) 3100 2900 Pershing # (Auto) 500 300 Eos # (Auto) 200 200 Baso # (Auto) 100 100 Sodium 135 L 135 L Potassium 3.7 3.9 Chloride 99 102 Carbon Dioxide 33 H 35 H BUN 16 19 H Creatinine 0.58 0.54 Estimated GFR > 60 > 60 BUN/Creatinine Ratio 27.6 H 35.2 H Glucose 161 H 142 H Calcium 8.1 L 8.0 L Phosphorus 3.8 3.5 Magnesium 1.9 2.0 PFSH Medical History Hx of ovarian cancer Ovarian cancer Diabetes Hyperlipidemia Renal insufficiency Seasonal allergic rhinitis History of breast cancer Surgical History History of bilateral ligation of fallopian tubes Social History household members: spouse Smoking Status: Former smoker Tobacco: How many years used: 2 alcohol intake: current substance use type: does not use Assessment & Plan Assessment & Plan narrative: 1. Likely ileus from problem #2 - NGT decompression if begins vomiting - Surgery consulted - IV dilaudid and po oxy PRN, started fentanyl patch with improvment now on 75 mcg. Continue oxycodone prn. - has PICC with TPN due to poor po intake and malnutrition, ideally discharge home without tpn depending on improvement in diet from ileus. Continue low residue diet for now, can eat as much as tolerated. - dietary consult for assistance in decision to do home TPN or not. 2. 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 Borden who recommends tissue biopsy, had ex lap on 01/08 with piece of omentum and mucinous deposits sent to pathology, also ascites - Dr. Borden will f/up on biopsy and see patient in clinic to discuss treatment options, he would like a text or call on discharge to get her scheduled in his clinic - Dr. Borden asked about having a port placed while inpatient, patient not 100% sure she will do chemo yet. 3. NIDDM - on metformin, held - SS, CBG q 6 h, D5NS 4. Severe Acute Protein Calorie Malnutrition r/t decreased appetite and altercations in GI function/structure as evidenced by 7% weight loss in 1 month, severe, <75% of estimated energy intake in 1 month per diet recall, mild muscle loss (temporalis, pectoralis major, deltoid, trapezius), omental caking, BMI 18.9 (underweight for age). Patient requiring parenteral nutrition via PICC due to a functional impairment of the gastrointestinal tract secondary to ileus. Enteral nutrition not an option due to ileus, NV and abdominal pain. TPN therapy possibly will be required for > 90 days and will provide the majority of the patient's nutrition. [facility] to manage tube feedings/TPN. Managing MD for this is her PCP Dr. Guero Kaiser. GI prophylaxis - PPI DVT prophylaxis - Lovenox Dispo: Possible discharge home without TPN if able to tolerate PO intake after ileus postop. If unable by Sunday can discharge home with TPN at that time. Dietary consultation ordered for tomorrow. Discussed with case management.
[2024-01-13] MEDS: fentaNYL 12 MCG/PATCH TOP (16:38)
[2024-01-13] MEDS: AA 5 %/CALCIUM/LYTES/DEXT 20 % 1,500 ML with MULTIVITAMIN 10 ML, TRACE ELEMENTS 1 ML 83.944 ML IV (17:53)
[2024-01-13] MEDS: SODIUM CHLORIDE 0.9% FLUSH 10 ML IV (21:13)
[2024-01-14] VITALS: BP 164/64; PULSE 66; RESP 17; TEMP 36.5; O2SAT 97
[2024-01-14 04:33] LABS: Add Manual Diff / Slide Review NO; Basophils Absolute Auto 100 /uL (0-100); Basophils Percent Auto 1.3 % (0-2); Eosinophils Absolute Auto 300 /uL (0-450); Hematocrit 31.8 % (36-46); Hemoglobin 10.7 g/dL (12.0-16.0); Lymphocytes Absolute Auto 3100 /uL (1100-4500); Lymphocytes Percent Auto 34.7 % (25-40); Mean Corpuscular HGB Conc 33.6 % (30-36); Mean Corpuscular Hemoglobin 31.6 PG (26-34); Mean Corpuscular Volume 94.1 fL (80-100); Monocytes Absolute Auto 400 /uL (0-900); Monocytes Percent Auto 4.8 % (3-14); Neutrophils Absolute Auto 5000 /uL (1500-7000); Neutrophils Percent Auto 56.2 % (50-75); Platelet Count 318 X10^3/uL (150-400); Red Blood Cell Count 3.38 X10^6/uL (4.0-5.2); Red Cell Distribution Width 13.6 % (11.6-14.8); White Blood Cell Count 8.9 X10^3/uL (4.5-11.0)
[2024-01-14 04:40] LABS: BUN Creatinine Ratio 38.5 (6-22); Blood Urea Nitrogen 20 mg/dL (7-17); Calcium 8.2 mg/dL (8.4-10.2); Carbon Dioxide 33 mmol/L (22-32); Chloride 103 mmol/L (98-107); Estimated Glomerular Filt Rate > 60 mL/min (>60); Glucose 167 mg/dL (80-110); HEMOLYSIS < 15 (0-50); Phosphorous 3.7 mg/dL (2.8-4.1); Potassium 4.1 mmol/L (3.4-5.1); Sodium 137 mmol/L (137-145)
[2024-01-14] MEDS: PANTOPRAZOLE DR 20 MG TABLET PO (06:08)
[2024-01-14] MEDS: INSULIN LISPRO 100 UNIT/ML 3ML VIAL SUBCUT ×3 (06:16→18:35)
--- NOTE | 2024-01-14 08:49 | PC.NURSE ---
Addendum entered by Mary Beth Goncalves R.N. 01/14/24 16:39: Patient has decided that she will be going home and doing TPN there. She complained of nausea and pain. Given zofran and oxycodone for discomfort with tylenol and helpful to patient. She will be discharging home tomorrow. Original Note: Patient is sitting up in her in chair, she usually just eats small amounts at meals. She states that she has been able to pass some gas. Up ad adán and ambulates in the halls. TPN infusing and patient is tolerating this well.
[2024-01-14 08:56] VITALS: BP 153/54; PULSE 63; RESP 14; O2SAT 99
[2024-01-14] MEDS: SODIUM CHLORIDE 0.9% FLUSH 10 ML IV (09:25)
[2024-01-14] MEDS: LORATADINE 10 MG TABLET PO (09:25)
[2024-01-14] MEDS: ENOXAPARIN 40 MG/0.4 ML SYRINGE SUBCUT (09:25)
[2024-01-14] MEDS: DOCUSATE 100 MG CAPSULE PO ×2 (09:25→20:47)
[2024-01-14 12:05] VITALS: BP 148/70; PULSE 69; RESP 16; O2SAT 99
--- NOTE | 2024-01-14 13:33 | DIET.CONS2 ---
Dietary Inpatient Consultation Note Admission Date: 01/09/2024 11:15 Nutrition f/u. Met with pt and spouse at bedside. Pt reports making decision to not go home on TPN. Pt open to talking about consuming adequate intake upon d/c. Provided education ensuring adequate calorie and protein with meals and snacks, including discussion on meal and snack composition, oral nutrition supplements, monitoring weight and energy levels, following up w/ provider for concerns, fiber, and provided high kcal/high protein handout for ideas/tips. F/u prn. Diet: 01/10/24 Lunch Soft,Low Fiber (Low residue) Diet Diet Modifications: bring ensures TID Food Texture: Level 7 - Regular Liquid Consistency: Level 0 - Thin Nutrition Percent Meal Consumed 25% 01/13/24 18:00 Percent Meal Consumed 75% 01/13/24 08:20 Electronically Signed by: Hyacinth Jalloh 01/14/24 13:33 Clinical Dietitian [address] [address]
--- NOTE | 2024-01-14 14:01 | CM.DPC ---
DCP Cont: Per MD and scientific aide, pt tolerating minimal amount of solid foods currently and recommendation would still be further TPN at discharge but after MD discussion bedside with pt and spouse their decision is to discharge home without TPN at this time and attempt to get enough nutrition through regular intake. JAYE called Garcia at [facility] and updated and he will reach out to pt and let them know that if TPN needed after discharge then they can assist with getting it set up through her PCP. SW met bedside with pt and spouse and explained role and they confirm that they do not want TPN at this time at discharge and SW explained that Garcia may reach out to them via phone and they were appreciative and thankful. SW inquired about possible HH and both pt and spouse feel pt is ambulating independently and steady and likely does not meet homebound criteria and decline HH needs at this time. They confirm preference is home via spouse POV when stable for discharge and hopeful for tomorrow Tues. Plan: SW to follow for plan of discharge home without TPN or HH when medically stable via spouse POV and assist. DESIRE Mittal
--- NOTE | 2024-01-14 15:08 | PM.PN.1 ---
Subjective Subjective Interval history: Eating a little better. No BM in days. No abdomen pain. No mausea. Exam Vital Signs (past 8 hours): - 01/14/24 08:56 01/14/24 12:05 Pulse Rate 63 69 Respiratory Rate 14 16 Blood Pressure 153/54 H 148/70 H Pulse Oximetry 99 99 Oxygen Flow Rate 0 Oxygen Delivery Method Room Air Oxygen Flow Rate 0 Narrative Exam Narrative: NAD, normal speech. Lungs clear Heart regular No murmur. Abdomen Soft NT, a little distended. No edema. Objective Labs 01/14/24 04:16 01/14/24 04:16 Labs: Laboratory Results - last 24 hr 01/14/24 04:16 WBC 8.9 RBC 3.38 L Hgb 10.7 L Hct 31.8 L MCV 94.1 MCH 31.6 MCHC 33.6 RDW 13.6 Plt Count 318 Neut % (Auto) 56.2 Lymph % (Auto) 34.7 [place] % (Auto) 4.8 Eos % (Auto) 3.0 Baso % (Auto) 1.3 Neut # (Auto) 5000 Lymph # (Auto) 3100 [place] # (Auto) 400 Eos # (Auto) 300 Baso # (Auto) 100 Sodium 137 Potassium 4.1 Chloride 103 Carbon Dioxide 33 H BUN 20 H Creatinine 0.52 Estimated GFR > 60 BUN/Creatinine Ratio 38.5 H Glucose 167 H Calcium 8.2 L Phosphorus 3.7 Magnesium 2.0 PFSH Medical History Hx of ovarian cancer Ovarian cancer Diabetes Hyperlipidemia Renal insufficiency Seasonal allergic rhinitis History of breast cancer Surgical History History of bilateral ligation of fallopian tubes Social History household members: spouse Smoking Status: Former smoker Tobacco: How many years used: 2 alcohol intake: current substance use type: does not use Assessment & Plan Assessment & Plan narrative: 1. Ileus, present on admission and active. - IV dilaudid and po oxy PRN, started fentanyl patch with improvment now on 75 mcg. Continue oxycodone prn. - has PICC with TPN due to poor po intake and malnutrition, ideally discharge home without tpn depending on improvement in diet from ileus. Continue low residue diet for now, can eat as much as tolerated. 2. Suspect newly diagnosed peritoneal carcinomatosis, due to cancer recurrence. Present on admission and active. 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 Borden who recommends tissue biopsy, had ex lap on 01/08 with piece of omentum and mucinous deposits sent to pathology, also ascites - Dr. Borden will f/up on biopsy and see patient in clinic to discuss treatment options, he would like a text or call on discharge to get her scheduled in his clinic - Dr. Borden asked about having a port placed while inpatient, patient not 100% sure she will do chemo yet. 3. NIDDM, present on admission and stable. - on metformin, held - SS, CBG q 6 h, D5NS 4. Severe Acute Protein Calorie Malnutrition r/t decreased appetite and altercations in GI function/structure as evidenced by 7% weight loss in 1 month, severe, <75% of estimated energy intake in 1 month per diet recall, mild muscle loss (temporalis, pectoralis major, deltoid, trapezius), omental caking, BMI 18.9 (underweight for age). PLAN: -Dulcolax AL once -TPN -possible discharge 01/14.
[2024-01-14] MEDS: ACETAMINOPHEN 325 MG TABLET 650 MG PO (15:47)
[2024-01-14] MEDS: OXYCODONE IR 5 MG TABLET PO (15:47)
[2024-01-14] MEDS: ONDANSETRON 4 MG/2 ML INJ IV (15:49)
[2024-01-14 16:30] VITALS: BP 146/65; PULSE 65; RESP 15; TEMP 36.4; O2SAT 98
[2024-01-14] MEDS: AA 5 %/CALCIUM/LYTES/DEXT 20 % 1,500 ML with MULTIVITAMIN 10 ML, TRACE ELEMENTS 1 ML 83.944 ML IV (18:32)
[2024-01-14] MEDS: FAT EMULSIONS 50 GM/250 ML EMULSION IV (18:32)
[2024-01-14 20:00] VITALS: BP 119/43; PULSE 62; RESP 16; TEMP 36.3; O2SAT 96
[2024-01-15] MEDS: PANTOPRAZOLE DR 20 MG TABLET PO (05:38)
[2024-01-15 08:00] VITALS: BP 140/63; PULSE 72; RESP 18; O2SAT 96; O2SAT 97
[2024-01-15] MEDS: ENOXAPARIN 40 MG/0.4 ML SYRINGE SUBCUT (08:34)
[2024-01-15] MEDS: LORATADINE 10 MG TABLET PO (08:34)
[2024-01-15] MEDS: DOCUSATE 100 MG CAPSULE PO (08:34)
[2024-01-15] MEDS: SODIUM CHLORIDE 0.9% FLUSH 10 ML IV (08:35)
[2024-01-15] MEDS: polyethylene glycoL 3350 17 GM POWD.PACK PO (08:40)
--- NOTE | 2024-01-15 10:53 | PM.DS.1 ---
History of Present Illness History of Present Illness Chief complaint: ABD Pain NVD Narrative: 3 y/o with PMH of Lt fallopian tube malignancy (s/p total hysterectomy followed by chemotherapy) and Lt breast carcinoma (s/p mastectomy and chemotherapy) that were diagnosed at the same time, 10 years ago. She was considered cured and after close follow up for years, she was recently told that she won't need to continue surveillance. Yesterday she was seen in the ED with diffuse abdominal tenderness, had CT showing ascites and possible omental carcinomatosis. Seen by PCP later that day and scheduled to see oncology on 01/08. Today she came back as she became nauseated, vomited twice and did not pass gas or had BM< in 7-[address] looks similar the prior study. Dilated bowel loops, w/o transition point, ascites, suspected carcinomatosis. Placed in observation with ileus, at risk for SBO. This morning: Patient's NV and abd pain is improved, but she is still quite distended and hasn't passed any gas. CT liver obtained to assess lesions and shows hemangiomas and likely peritoneal carcinomatosis. US abd shows small ascietes and right cystic adnexal mass. Discussed with patient these findings. Dr. 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 Doesn't think her NV, abd pain will resolve enough to go home. pharmacy clinical coordinator working on transfer. Discharge Providers Provider Date of admission: 01/09/24 11:15 Discharge Date: 01/15/24 Primary care physician: Guero Kaiser MD Consults: 01/08/24 00:57 Consult to General Surgery Stat Comment: Consulting Provider: Ivania Quijano Reason for consultation: Abdominal pain Has provider been notified: Yes 01/10/24 08:42 Consult to TAX EVALUATOR - Station Mechanic Helper Routine Comment: outpatient TPN 01/13/24 11:46 Consult to Dietitian, Adult Routine Comment: Reason For Exam: on TPN, also some oral intake. Assess caloric need Discharge provider: Carroll Angeles MD Summary Hospital Course Discharge Diagnosis: 1. Ileus, present on admission and improved. - IV dilaudid and po oxy PRN, started fentanyl patch with improvment now on 75 mcg. Continue oxycodone prn. - has PICC with TPN due to poor po intake and malnutrition, ideally discharge home without tpn depending on improvement in diet from ileus. Continue low residue diet for now, can eat as much as tolerated. 2. Suspect newly diagnosed peritoneal carcinomatosis, due to cancer recurrence. Present on admission and active. Pathology pending. 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 Borden who recommends tissue biopsy, had ex lap on 01/08 with piece of omentum and mucinous deposits sent to pathology, also ascites - Dr. Borden will f/up on biopsy and see patient in clinic to discuss treatment options, he would like a text or call on discharge to get her scheduled in his clinic - Dr. Borden asked about having a port placed while inpatient, patient not 100% sure she will do chemo yet. 3. NIDDM, present on admission and stable. - on metformin, held - SS, CBG q 6 h, D5NS 4. Severe Acute Protein Calorie Malnutrition r/t decreased appetite and altercations in GI function/structure as evidenced by 7% weight loss in 1 month, severe, <75% of estimated energy intake in 1 month per diet recall, mild muscle loss (temporalis, pectoralis major, deltoid, trapezius), omental caking, BMI 18.9 (underweight for age). Hospital Course: She was admitted with an ileus and treated medically. Imaging suggested carcinomatosis of the peritoneum. She was discussed with Dr. Borden of [facility] Oncology. He recommended biopsy and she underwent a laparoscopy with omental biopsy with results pending at time of discharge. Clinically, she improved with regards to her ileus and was able to tolerate a diet and felt much better. She had no bowel movement at the time of discharge but had also no abdominal pain. She was felt to be stable with TPN and this was arranged with [facility] and we will start on 01/15. She was a left arm PICC. Dr. Borden was contacted regarding discharge and he will arrange for biopsy follow up and expedited follow up in clinic. She will use MiraLax 1 dose daily in the meantime. A port was not placed because the patient was unsure if she would pursue chemotherapy with the information had she had at this point. She will decrease her metformin from 1000-500 in the evening and follow her blood sugars for the next several days. Status at Discharge Cognitive/behavioral status at discharge: oriented Functional status at discharge: independent ambulation Overall status at discharge: patient is back to baseline Time Spent with Patient Time spent: Greater than 30 minutes Exam Vital Signs (past 8 hours): - 01/15/24 08:00 01/15/24 08:00 Pulse Rate 72 Respiratory Rate 18 Blood Pressure 140/63 Pulse Oximetry 97 96 Oxygen Delivery Method Room Air Oxygen Flow Rate 0 0 Oxygen Delivery Method Room Air Oxygen Flow Rate 0 Narrative Exam Narrative: NAD, alert and oriented. Fluent speech. Gaunt, and chronically ill in appearance Lungs are clear, normal rate and effort. Heart is regular, no murmur gallop or rub. Abdomen is soft, non distended. Extremities are free of edema. Objective Imaging CT scan - abdomen: Radiologist's impression: The right lobe liver lesion is confirmed, possibly a cavernous hemangioma, though not definitive on CT. Hypervascular left lobe lesion also seen under 1 cm, possibly a capillary hemangioma. Diffuse omental and mesenteric fat stranding with ascites, most compatible for carcinomatosis given ovarian cancer history. In the setting of malignancy history, consider follow-up oncologic staging. Liver MRI could also be helpful. Other findings above. CT scan - chest: Radiologist's impression: No evidence of metastatic disease involving the chest. Small pericardial effusion. US - abdomen: Radiologist's impression: 1. Small amount of ascites. 2. A cystic mass in the right adnexa. In this patient with ovarian cancer, it is suspicious for recurrent disease Labs 01/14/24 04:16 01/14/24 04:16 [facility] Medical History Hx of ovarian cancer Ovarian cancer Diabetes Hyperlipidemia Renal insufficiency Seasonal allergic rhinitis History of breast cancer Surgical History History of bilateral ligation of fallopian tubes Social History household members: spouse Smoking Status: Former smoker Tobacco: How many years used: 2 alcohol intake: current substance use type: does not use Discharge Assessment & Plan Assessment and Plan Assessment: 1. Ileus, present on admission and improved. 2. Suspect newly diagnosed peritoneal carcinomatosis, due to cancer recurrence. Present on admission and active. Pathology pending. 3. NIDDM, present on admission and stable. 4. Severe Acute Protein Calorie Malnutrition r/t decreased appetite and altercations in GI function/structure as evidenced by 7% weight loss in 1 month, severe, <75% of estimated energy intake in 1 month per diet recall, mild muscle loss (temporalis, pectoralis major, deltoid, trapezius), omental caking, BMI 18.9 (underweight for age). Plan of Treatment: Discharge home with TPN through [facility], expedite follow up with Dr. Borden of Oncology at [facility]. In addition she is on fentanyl at 37.5 mcg q.72 hours transderm and as needed oxycodone. Discharge Plan Discharge Plan Patient Disposition: Home Provider Discharge Comment: Stable for discharge home with home TPN and close follow up with Dr. Borden of Oncology at [facility]. Discharge orders & Medications Prescriptions: New fentanyl 12 mcg/hr Patch 72 Hour 12 mcg topical Q72H Qty: 10 0RF fentanyl 25 mcg/hr Patch 72 Hour 25 mcg topical Q72H Qty: 10 0RF pantoprazole 20 mg Tablet,Delayed Release (Dr/Ec) 20 mg PO 0600 Qty: 30 0RF oxycodone 10 mg Tablet 10 mg PO Q3HR PRN (Reason: Pain, Severe (7-10)) Qty: 25 0RF metformin 500 mg tablet 500 mg PO DAILY Qty: 30 0RF Continued benzonatate 200 mg capsule 200 mg PO BID PRN (Reason: cough) Qty: 30 0RF (DME) blood-glucose meter Kit See Rx Instructions .ROUTE .MEDSUPPLY Qty: 1 0RF Rx Instructions: Use to test blood glucose BID (DME) lancets [BD Ultra Fine Lancets] 33 gauge misc See Rx Instructions .ROUTE .MEDSUPPLY Qty: 100 6RF Rx Instructions: Use to test blood glucose twice daily (DME) True Metrix Glucose Test Strip Strip See Rx Instructions .ROUTE .COMPLEX Qty: 100 6RF Dose Instruction: USE TO TEST BLOOD GLUCOSE TWICE A DAY Rx Instructions: USE TO TEST BLOOD GLUCOSE TWICE A DAY ondansetron 4 mg tablet,disintegrating 4 mg PO Q6H PRN (Reason: nausea and vomiting) Qty: 30 0RF dicyclomine 10 mg capsule 10 mg PO ONCE PRN (Reason: IBS) cetirizine [Aller-Dago] 10 mg Tablet 10 mg PO DAILY PRN (Reason: Allergy Symptoms) Discontinued metformin 1,000 mg tablet extended release 24 hr 1,000 mg PO DAILY Qty: 90 3RF hydrocodone-acetaminophen 5-325 mg tablet 1 tab PO Q8H PRN (Reason: pain) Qty: 30 0RF Medication counseling provided by Pharmacist: No Follow up/Referrals: Guero Kaiser MD [Primary Care Provider] - Tj Borden MD [Physician] - (franca from Dr Enriquez office will be calling you to schedule a appointment that will be within 10 days from discharge ) Discharge Health Status Multidrug resistant organism: No MDRO Diet/Activity/Treatments Diet: Diet as Tolerated Visit Report/Discharge Packet Instructions: DI for Ileus, DI for Small Bowel Obstruction, DI for Laparoscopy, DI for Prescription Opioid Use, Fentanyl Transdermal Patch, Oxycodone, [facility]: Wound Care Stand Alone Forms: Patient Portal/API, Stroke Signs & Symptoms Discharge Data Primary Care Provider: Guero Kaiser
--- NOTE | 2024-01-15 11:03 | CM.DPC ---
DCP Cont. Reviewed EMR and team rounds for status updates. Pt has been medically cleared for home d/c. Per Hospitalist, she is interested in moving forward with home TPN. Called [facility] and provided them the TPN rate and type, they will call pt to initiate care by tomorrow. Met with pt and explained the plan, she was agreeable and stated understanding. Her spouse will drive her home once she's done with her current feeding tx. No further DCP needs identified at this time.
[2024-01-15] MEDS: INSULIN LISPRO 100 UNIT/ML 3ML VIAL SUBCUT (12:02)
--- NOTE | 2024-01-15 13:52 | PC.NURSE ---
Pt is dressed and ready for discharge home with Spouse. PICC line is to remain intact for home TPN infusions. Went over d/c instructions with Pt and Spouse-discussed d/c meds, time of last dose, reviewed stroke education, s/s of infection, no driving while on narcotics, drink plenty of fluids to prevent constipation or dehydration and to follow up as directed with her PCP and Oncology. Pt out via w/c by AMMUNITION OFFICER to POV with Spouse and all belongings.
== END 2024-01-15 14:03 | disposition home or self-care (01) | DRG 356 ==
LOC: ED 01-08 01:58 → AC 01-08 01:59
PROVIDERS: Internal Medicine; Student in an Organized Health Care Education/Training Program; Surgery; Admitting Provider Internal Medicine; Emergency Provider Emergency Medicine; PCP Family Medicine; Referring Provider Emergency Medicine; Visit Provider Internal Medicine
PROC: 0DBU4ZZ Excision of Omentum, Percutaneous Endoscopic Approach (ICD-10-PCS; CPT 49320; principal; 2024-01-09 15:45)
DX: K56.7 Ileus, unspecified (principal); E43 Unspecified severe protein-calorie malnutrition; C56.9 Malignant neoplasm of unspecified ovary; R18.8 Other ascites; Z68.1 Body mass index [BMI] 19.9 or less, adult; R03.0 Elevated blood-pressure reading, without diagnosis of hypertension; E78.2 Mixed hyperlipidemia; E11.9 Type 2 diabetes mellitus without complications; R93.5 Abnormal findings on diagnostic imaging of other abdominal regions, including retroperitoneum; Z87.891 Personal history of nicotine dependence; Z85.3 Personal history of malignant neoplasm of breast; Z79.84 Long term (current) use of oral hypoglycemic drugs
CPT/HCPCS: 36415; 36569; 49321; 71046; 71260; 74018; 74170; 74177; 76705; 80048; 80053; 81003; 81015; 82378; 82550; 82962; 83605; 83690; 83735; 84100; 84134; 84478; 84484; 85025; 86300; 86304; 87070; 87075; 87205; 93005; 96374; 96375; 99232; 99284; G0378; B4185; B4189; C9113; J0136; J0690; J1100; J1170; J1650; J1815; J2270; J2405; J2704; J3010; J3475; J3490; Q9967

== ENCOUNTER → 2024-01-17 12:01 | Outpatient (ROUT) | payer MEDICARE, OTHER, SELFPAY ==
[2024-01-08 02:05] VITALS: BMI 19.8
[2024-01-17 12:11] LABS: Add Manual Diff / Slide Review NO; Basophils Absolute Auto 100 /uL (0-100); Eosinophils Absolute Auto 300 /uL (0-450); Hematocrit 32.7 % (36-46); Hemoglobin 10.8 g/dL (12.0-16.0); Lymphocytes Absolute Auto 3100 /uL (1100-4500); Lymphocytes Percent Auto 25.2 % (25-40); Mean Corpuscular HGB Conc 33.1 % (30-36); Mean Corpuscular Hemoglobin 31.5 PG (26-34); Mean Corpuscular Volume 95.2 fL (80-100); Monocytes Absolute Auto 600 /uL (0-900); Monocytes Percent Auto 4.7 % (3-14); Neutrophils Absolute Auto 8300 /uL (1500-7000); Neutrophils Percent Auto 67.1 % (50-75); Platelet Count 353 X10^3/uL (150-400); Red Blood Cell Count 3.44 X10^6/uL (4.0-5.2); Red Cell Distribution Width 13.7 % (11.6-14.8); White Blood Cell Count 12.3 X10^3/uL (4.5-11.0)
[2024-01-17 12:25] LABS: Alanine Aminotransferase 40 IU/L (<35); Albumin 3.6 g/dL (3.5-5.0); Albumin Globulin Ratio 1.3 (1.0-2.8); Alkaline Phosphatase 93 U/L (38-126); Aspartate Aminotransferase 56 IU/L (14-36); BUN Creatinine Ratio 32.8 (6-22); Bilirubin Total 0.4 mg/dL (0.2-1.3); Blood Urea Nitrogen 19 mg/dL (7-17); C-Reactive Protein Quant 2.4 mg/dL (<1.0); Calcium 8.8 mg/dL (8.4-10.2); Carbon Dioxide 28 mmol/L (22-32); Chloride 100 mmol/L (98-107); Estimated Glomerular Filt Rate > 60 mL/min (>60); Globulin 2.7 g/dL (1.7-4.1); Glucose 163 mg/dL (80-110); HEMOLYSIS < 15 (0-50); Magnesium 1.9 mg/dL (1.6-2.3); Phosphorous 4.9 mg/dL (2.8-4.1); Potassium 4.8 mmol/L (3.4-5.1); Sodium 136 mmol/L (137-145); Total Protein 6.3 g/dL (6.3-8.2); Triglycerides 149 mg/dL (35-150)
[2024-01-17 12:29] LABS: Prealbumin 19.1 mg/dL (17.6-36.0)
== END ==
PROVIDERS: PCP Family Medicine; Visit Provider Family Medicine
DX: E43 Unspecified severe protein-calorie malnutrition (principal); C48.2 Malignant neoplasm of peritoneum, unspecified
CPT/HCPCS: 80053; 83735; 84100; 84134; 84478; 85025; 86140

== ENCOUNTER → 2024-01-18 09:50 | Outpatient (ROUT) | payer MEDICARE, OTHER, SELFPAY ==
[2024-01-08 02:05] VITALS: BMI 19.8
[2024-01-18 10:00] LABS: Add Manual Diff / Slide Review NO; Basophils Absolute Auto 0 /uL (0-100); Basophils Percent Auto 0.3 % (0-2); Eosinophils Absolute Auto 300 /uL (0-450); Eosinophils Percent Auto 2.1 % (2-4); Hematocrit 30.9 % (36-46); Hemoglobin 10.5 g/dL (12.0-16.0); Lymphocytes Absolute Auto 3000 /uL (1100-4500); Lymphocytes Percent Auto 23.9 % (25-40); Mean Corpuscular HGB Conc 33.9 % (30-36); Mean Corpuscular Hemoglobin 31.7 PG (26-34); Mean Corpuscular Volume 93.7 fL (80-100); Monocytes Absolute Auto 700 /uL (0-900); Monocytes Percent Auto 5.2 % (3-14); Neutrophils Absolute Auto 8600 /uL (1500-7000); Neutrophils Percent Auto 68.5 % (50-75); Platelet Count 348 X10^3/uL (150-400); Red Cell Distribution Width 13.4 % (11.6-14.8); White Blood Cell Count 12.6 X10^3/uL (4.5-11.0)
[2024-01-18 10:26] LABS: Alanine Aminotransferase 32 IU/L (<35); Albumin 3.6 g/dL (3.5-5.0); Albumin Globulin Ratio 1.3 (1.0-2.8); Alkaline Phosphatase 86 U/L (38-126); Aspartate Aminotransferase 40 IU/L (14-36); BUN Creatinine Ratio 36.4 (6-22); Bilirubin Total 0.3 mg/dL (0.2-1.3); Blood Urea Nitrogen 20 mg/dL (7-17); C-Reactive Protein Quant 2.1 mg/dL (<1.0); Calcium 8.9 mg/dL (8.4-10.2); Carbon Dioxide 31 mmol/L (22-32); Chloride 101 mmol/L (98-107); Estimated Glomerular Filt Rate > 60 mL/min (>60); Globulin 2.7 g/dL (1.7-4.1); Glucose 129 mg/dL (80-110); HEMOLYSIS < 15 (0-50); Magnesium 1.9 mg/dL (1.6-2.3); Phosphorous 4.9 mg/dL (2.8-4.1); Potassium 4.8 mmol/L (3.4-5.1); Sodium 136 mmol/L (137-145); Total Protein 6.3 g/dL (6.3-8.2)
[2024-01-18 10:31] LABS: Prealbumin 19.8 mg/dL (17.6-36.0)
== END ==
PROVIDERS: PCP Family Medicine; Visit Provider Family Medicine
DX: C48.2 Malignant neoplasm of peritoneum, unspecified (principal); E43 Unspecified severe protein-calorie malnutrition
CPT/HCPCS: 80053; 83735; 84100; 84134; 85025; 86140

== ENCOUNTER → 2024-01-21 09:30 | Outpatient (ROUT) | payer MEDICARE, OTHER, SELFPAY ==
[2024-01-08 02:05] VITALS: BMI 19.8
[2024-01-21 09:48] LABS: Add Manual Diff / Slide Review NO; Basophils Absolute Auto 0 /uL (0-100); Basophils Percent Auto 0.3 % (0-2); Eosinophils Absolute Auto 300 /uL (0-450); Eosinophils Percent Auto 2.7 % (2-4); Hematocrit 31.7 % (36-46); Hemoglobin 10.6 g/dL (12.0-16.0); Lymphocytes Absolute Auto 2900 /uL (1100-4500); Lymphocytes Percent Auto 26.9 % (25-40); Mean Corpuscular HGB Conc 33.5 % (30-36); Mean Corpuscular Hemoglobin 31.8 PG (26-34); Mean Corpuscular Volume 94.8 fL (80-100); Monocytes Absolute Auto 600 /uL (0-900); Neutrophils Absolute Auto 7000 /uL (1500-7000); Neutrophils Percent Auto 64.1 % (50-75); Platelet Count 379 X10^3/uL (150-400); Red Blood Cell Count 3.35 X10^6/uL (4.0-5.2); Red Cell Distribution Width 13.9 % (11.6-14.8); White Blood Cell Count 10.9 X10^3/uL (4.5-11.0)
[2024-01-21 09:57] LABS: Alanine Aminotransferase 18 IU/L (<35); Albumin 3.6 g/dL (3.5-5.0); Albumin Globulin Ratio 1.2 (1.0-2.8); Alkaline Phosphatase 90 U/L (38-126); Aspartate Aminotransferase 24 IU/L (14-36); Bilirubin Total 0.3 mg/dL (0.2-1.3); Blood Urea Nitrogen 22 mg/dL (7-17); C-Reactive Protein Quant 1.5 mg/dL (<1.0); Calcium 8.9 mg/dL (8.4-10.2); Carbon Dioxide 29 mmol/L (22-32); Chloride 101 mmol/L (98-107); Estimated Glomerular Filt Rate > 60 mL/min (>60); Globulin 3.1 g/dL (1.7-4.1); Glucose 188 mg/dL (80-110); HEMOLYSIS < 15 (0-50); Magnesium 1.8 mg/dL (1.6-2.3); Phosphorous 4.2 mg/dL (2.8-4.1); Potassium 4.6 mmol/L (3.4-5.1); Sodium 135 mmol/L (137-145); Total Protein 6.7 g/dL (6.3-8.2); Triglycerides 173 mg/dL (35-150)
[2024-01-21 10:02] LABS: Prealbumin 24.2 mg/dL (17.6-36.0)
== END ==
PROVIDERS: Visit Provider Family Medicine
DX: E43 Unspecified severe protein-calorie malnutrition (principal); C48.2 Malignant neoplasm of peritoneum, unspecified
CPT/HCPCS: 80053; 83735; 84100; 84134; 84478; 85025; 86140

== ENCOUNTER → 2024-04-21 06:45 | Outpatient (CLI) | payer MEDICARE, OTHER, SELFPAY ==
[2024-01-08 02:05] VITALS: BMI 19.8
== END ==
PROVIDERS: PCP Family Medicine; Referring Provider Family Medicine; Visit Provider Family Medicine
DX: E11.9 Type 2 diabetes mellitus without complications (principal)
CPT/HCPCS: 36415; 83036

== ENCOUNTER 2024-07-01 20:25 | Inpatient (IN) | payer MEDICARE, OTHER, SELFPAY ==
[2024-01-08 02:05] VITALS: BMI 19.8
[2024-07-01] VITALS (10 sets, daily range): BP systolic 152–242; BP diastolic 70–106; PULSE 41–49; RESP 9–23; TEMP 35.9–36.1; O2SAT 89–100; BMI 16.8
--- NOTE | 2024-07-01 20:32 | DI.CT.S_ITS ---
PROCEDURE: CT ANGIO HEAD AND NECK INDICATIONS: difficulty with speech TECHNIQUE: After the administration of intravenous contrast, 1 mm thick sections acquired from the aortic arch through the [place] of [place]. 3-dimensional zjriedg-bxswwraoe-ludevbexzj (MIP) and/or volume rendering reformats were acquired of the central intracranial vasculature and neck separately. For radiation dose reduction, the following was used: automated exposure control, adjustment of mA and/or kV according to patient size. COMPARISON: [facility], CT, CT STROKE, 07/01/2024, 20:39. FINDINGS: Image quality: Diagnostic. BRAIN: See separately dictated CT brain report 07/01/2024. HEAD CT ANGIOGRAPHY: Anterior circulation: Intracranial internal carotid arteries are normal in size and flow. The flow within the paired anterior cerebral arteries is normal and symmetric. The flow within the middle cerebral arteries is normal and symmetric. The anterior communicating artery is seen. No aneurysms are seen. Posterior circulation: Trace right vertebral artery dominance. Visualized portions of the vertebral arteries demonstrate normal caliber, and join to form a normal appearing basilar artery. Flow within the posterior cerebral arteries is normal and symmetric. No aneurysms are seen. NECK CT ANGIOGRAPHY: Carotid system: The great vessels demonstrate a conventional anatomy as they arise from the aortic arch. The origins of the common carotid arteries appear patent. The common carotid arteries demonstrate normal caliber and courses. The bifurcation regions are both widely patent. The internal carotid arteries demonstrate normal calibers and courses. Posterior circulation: The origins of the vertebral arteries both appear widely patent. The more superior extracranial portions of both vertebral arteries also demonstrate normal courses and calibers. They join to form a normal appearing basilar artery. Soft tissues: Visualized neck soft tissues demonstrate no suspicious abnormalities. Bones: No suspicious bony lesions. Visualized cervical spine appears normally aligned. IMPRESSION: No significant intracranial arterial abnormality is seen. No significant abnormality is seen within the arteries of the neck. Any quantitative measurements of stenosis were performed using NASCET criteria. Dictated by: Sakina Saenz M.D. on 07/01/2024 at 21:23 Approved by: Sakina Saenz M.D. on 07/01/2024 at 21:27
--- NOTE | 2024-07-01 20:32 | DI.CT.S_ITS ---
PROCEDURE: CT STROKE INDICATIONS: difficulty with speech TECHNIQUE: Noncontrast 4.5 mm thick angled axial sections acquired from the foramen magnum to the vertex, with coronal reformats. For radiation dose reduction, the following was used: automated exposure control, adjustment of mA and/or kV according to patient size. COMPARISON: None. FINDINGS: Image quality: Diagnostic CSF spaces: Basal cisterns are patent. Lateral ventricles are symmetric. Volume: Vascular calcifications. Periventricular white matter disease is commonly seen with chronic microangiopathy. Volume loss is present. These findings are [id number] Brain: No acute hemorrhage. No gross loss of rodrigez-white differentiation. Craniofacial structures: Mild paranasal sinus mucosal thickening. IMPRESSION: No acute intracranial pathology. Called to for Dr. Sebastian at timestamp below. Consider MRI to further evaluate for infarct if necessary. This study fulfills neurological imaging criteria for inclusion or exclusion of acute stroke therapies based on available published neurological imaging guidelines. Dictated by: Gato Owusu M.D. on 07/01/2024 at 20:54 Approved by: Gato Owusu M.D. on 07/01/2024 at 20:56
[2024-07-01 20:45] LABS: Add Manual Diff / Slide Review NO; Basophils Absolute Auto 0 /uL (0-100); Basophils Percent Auto 0.3 % (0-2); Eosinophils Absolute Auto 200 /uL (0-450); Eosinophils Percent Auto 2.1 % (2-4); Hematocrit 41.1 % (36-46); Hemoglobin 13.9 g/dL (12.0-16.0); Lymphocytes Absolute Auto 3500 /uL (1100-4500); Lymphocytes Percent Auto 40.9 % (25-40); Mean Corpuscular HGB Conc 33.8 % (30-36); Mean Corpuscular Hemoglobin 32.4 PG (26-34); Mean Corpuscular Volume 95.9 fL (80-100); Monocytes Absolute Auto 600 /uL (0-900); Monocytes Percent Auto 6.7 % (3-14); Neutrophils Absolute Auto 4300 /uL (1500-7000); Platelet Count 285 X10^3/uL (150-400); Red Blood Cell Count 4.29 X10^6/uL (4.0-5.2); Red Cell Distribution Width 14.2 % (11.6-14.8); White Blood Cell Count 8.5 X10^3/uL (4.5-11.0)
--- NOTE | 2024-07-01 20:51 | ED.NEUROSD ---
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 and patient noticed it about 8:00 a.m. this evening he had stepped out to take out the trash and came back into the house noted patient could not really get her words out. Patient has been state it is improving it has not totally back to normal but much better. She still states she has a little bit of trouble she knows what she wants to say with the words coming out. She does note a little bit tingling in her right hand. She denies any other symptoms currently. Did develop a headache this evening. No chest pain or shortness of breath. Denies any numbness tingling or weakness other than in her right hand. No facial droop was appreciated. She noticed some sparkling in her vision in 1 eye the same time which has resolved. No fevers or chills. No nausea or vomiting. No issues with bowel movements or urination. No issues with ambulation. Patient takes metformin daily, no anticoagulants or aspirin. Had mastectomy and fallopian tube removed for breast cancer 2012 and had an ex lap of her abdomen for potential cancer in the last year but was negative. No known drug allergies. No tobacco, alcohol or recreational drugs. Patient is accompanied by her . On Anticoagulants: No Related Data Home Medications Medication Instructions Recorded Confirmed dicyclomine 10 mg capsule 10 mg PO ONCE PRN IBS 09/03/20 04/24/24 cetirizine 10 mg tablet (Aller-Dago) 10 mg PO DAILY PRN Allergy Symptoms 11/22/21 04/24/24 Previous Rx's Medication Instructions Recorded blood-glucose meter #1 ea 12/24/20 lancets 33 gauge (BD Ultra Fine #100 ea 12/24/20 Lancets) blood sugar diagnostic (True #100 strips 11/07/22 Metrix Glucose Test Strip) metformin 500 mg tablet 500 mg PO DAILY #180 tabs 04/24/24 Allergies Allergy/AdvReac Type Severity Reaction Status Date / Time metformin AdvReac Mild low grade Verified 04/24/24 07:47 nausea, cramping, constipation, and pervasive gas Review of Systems Review of Systems ROS Unobtainable: All systems reviewed & are unremarkable except as noted in HPI and below Hematologic/Lymphatic On Anticoagulants: No Patient History Medical History Hx of ovarian cancer Ovarian cancer Diabetes Hyperlipidemia Renal insufficiency Seasonal allergic rhinitis History of breast cancer Surgical History History of bilateral ligation of fallopian tubes Social History household members: spouse Smoking Status: Former smoker Tobacco: How many years used: 2 alcohol intake: current substance use type: does not use Smoking Status: Former smoker alcohol intake frequency: a few times a month Substance Use Type: does not use Exam Initial Vital Signs Initial Vital Signs: Vital Signs Temperature 97.0 F L 07/01/24 20:26 Pulse Rate 48 L 07/01/24 20:26 Respiratory Rate 16 07/01/24 20:26 Blood Pressure 242/106 H 07/01/24 20:26 Pulse Oximetry 100 07/01/24 20:26 Oxygen Delivery Method Room Air 07/01/24 20:26 Scores NIH Stroke Scale Level of Conciousness: Alert, keenly responsive Ask month/age: Answers both questions correctly. Open/close eyes, close hand: Performs both tasks correctly Best gaze horizontal: Normal Visual lugo: No visual loss Facial palsy: Normal symetrical movement Left arm drift: No drift for full 10 sec Right arm drift: No drift for full 10 sec Left leg drift: No drift for full 5 sec Right leg drift: No drift for full 5 sec Limb ataxia: Absent Sensory on face/arms/legs: Normal, no sensory loss Best language: Mild to moderate, slurs some words Dysarthria: Mild to mod,some slurring Extinction or inattention: No abnormality Total NIH Stroke scale score: 2 Course Orders Ordered: ED Orders 07/01/24 20:29 EKG-12 Lead Stat 07/01/24 20:[address] angio head and neck Stat Urine Drug Screen, Rapid Stat EKG-12 Lead Stat 07/01/24 20:35 Complete Blood Count AUTO DIFF Stat Comprehensive Metabolic Panel Stat Ethanol (ETOH) Stat PTT Partial Thromboplastin Dionte Stat Prothrombin Time INR Stat Troponin & CK Cardiac Panel Stat 07/01/24 22:01 Education, smoking cessation ONGOING 07/01/24 22:04 Consult to Occupational Therapy Evaluate & Treat Consult to Physical Therapy Evaluate & Treat Acetaminophen (Acetaminophen 325 Mg Tablet) 650 mg PO Q6H PRN PRN Reason: Fever/Mild Pain (1-3) Heparin Sodium (Porcine) (Heparin 5,000 Unit/Ml Vial) 5,000 unit SUBCUT BID HELENA Sodium Chloride (Normal Saline 0.9%) 500 mls @ 1,000 mls/hr IV BOLUS ONE Stop: 07/01/24 22:31 Naloxone HCl (Naloxone 0.4 Mg/Ml Vial) 0.2 mg IV Q2MIN PRN PRN Reason: Opiate Reversal Ondansetron HCl (Ondansetron 4 Mg/2 Ml Inj) 4 mg IV Q8HR PRN PRN Reason: Nausea And Vomiting Discontinued Medications Aspirin (Aspirin 81 Mg Chew Tab) 324 mg PO NOW ONE Stop: 07/01/24 21:27 Last Admin: 07/01/24 21:33 Dose: 324 mg Documented By: SHALOM Vital Signs Vital signs: Vital Signs - 8 hr 07/01/24 20:26 07/01/24 20:30 07/01/24 20:32 Temperature 97.0 F L Pulse Rate 48 L Respiratory Rate 16 Blood Pressure 242/106 H 242/106 H Pulse Oximetry 100 89 L Oxygen Delivery Method Room Air 07/01/24 20:32 07/01/24 20:57 07/01/24 20:57 Temperature Pulse Rate 46 L 49 L Respiratory Rate 23 Blood Pressure 193/82 H Pulse Oximetry 100 100 Oxygen Delivery Method 07/01/24 21:00 07/01/24 21:00 07/01/24 21:30 Temperature Pulse Rate 43 L 42 L Respiratory Rate 12 12 Blood Pressure 188/83 H 170/74 H Pulse Oximetry 100 99 Oxygen Delivery Method MDM - Neuro Symptoms/Deficit Lab Data 07/01/24 20:35 07/01/24 20:35 Labs: Lab Results 07/01/24 Range/Units 20:35 WBC 8.5 (4.5-11.0) X10^3/uL RBC 4.29 (4.0-5.2) X10^6/uL Hgb 13.9 (12.0-16.0) g/dL Hct 41.1 (36-46) % MCV 95.9 (80-100) fL MCH 32.4 (26-34) PG MCHC 33.8 (30-36) % RDW 14.2 (11.6-14.8) % Plt Count 285 (150-400) X10^3/uL Neut % (Auto) 50.0 (50-75) % Lymph % (Auto) 40.9 H (25-40) % [place] % (Auto) 6.7 (3-14) % Eos % (Auto) 2.1 (2-4) % Baso % (Auto) 0.3 (0-2) % Neut # (Auto) 4300 (2984-6699) /uL Lymph # (Auto) 3500 (6586-7922) /uL [place] # (Auto) 600 (0-900) /uL Eos # (Auto) 200 (0-450) /uL Baso # (Auto) 0 (0-100) /uL PT 10.4 (9.4-12.5) SECONDS INR 0.9 (0.9-1.3) APTT 38 H (25.1-36.5) SECONDS Sodium 125 L (137-145) mmol/L Potassium 4.1 (3.4-5.1) mmol/L Chloride 91 L (98-107) mmol/L Carbon Dioxide 28 (22-32) mmol/L BUN 8 (7-17) mg/dL Creatinine 0.71 (0.52-1.04) mg/dL Estimated GFR > 60 (>60) mL/min BUN/Creatinine Ratio 11.3 (6-22) Glucose 146 H (80-110) mg/dL Calcium 9.4 (8.4-10.2) mg/dL Total Bilirubin 0.7 (0.2-1.3) mg/dL AST 38 H (14-36) IU/L ALT 16 (<35) IU/L Alkaline Phosphatase 75 (38-126) U/L Total Creatine Kinase 60 (30-135) U/L Troponin I < 0.012 (0.01-0.034) ng/mL Total Protein 8.3 H (6.3-8.2) g/dL Albumin 4.7 (3.5-5.0) g/dL Globulin 3.6 (1.7-4.1) g/dL Albumin/Globulin Ratio 1.3 (1.0-2.8) Ethyl Alcohol < 10 ( - 10) mg/dL Point of Care Testing Glucose POC [address] scan - head: Radiologist's Impression: Marianna Roberts?(Polina)??She/Her/Hers??64??F??1960 ? Allergy/Adv: metformin (More??) Close Head/Neck CTA 07/01/[address] (Signed) Gato Owusu - 07/01/24 Chest X-Ray (Signed) Leatha Heck - 01/09/24 Abdomen X-Ray (Signed) Myles Maldonado - 01/09/[address] (Signed) Melissa Lopez - 01/08/24 Abdomen Ultrasound (Signed) Sivan Gann - 01/08/[address] (Signed) aGto Owusu - 01/08/24 Abdomen/Pelvis CT (Signed) Rusty Cantrell - 01/07/24 Abdomen/Pelvis CT (Signed) Sivan Gann - 01/06/24 Chest X-Ray (Signed) Narciso Ross - 01/06/24 Chest X-Ray (Signed) Arnaud Truong - 12/27/23 Mammogram Screening (Signed) Demario Rachel - 07/02/23 Chest/Abdomen X-ray (Signed) Rusty Cantrell - 01/16/23 Mammogram Screening (Signed) Demario Rachel - 06/30/22 Foot X-Ray (Signed) Rusty Cantrell - 04/21/22 Pelvis MRI (Signed) Leatha Heck - 12/15/21 Telemetry Strips 08/22/21 Telemetry Strips 08/22/21 Launch?[address] [address] [address] Scan Report Signed Patient: Marianna Roberts MR#: [id number] : 1960 Acct:[id number] Age/Sex: 64 / F Date of Service: 07/01/24 Loc: ED Accession Number: [id number] Procedure: CT Stroke Ordering Provider: Cheryl Sebastian D.O. PROCEDURE: CT STROKE INDICATIONS: difficulty with speech TECHNIQUE: Noncontrast 4.5 mm thick angled axial sections acquired from the foramen magnum to the vertex, with coronal reformats. For radiation dose reduction, the following was used: automated exposure control, adjustment of mA and/or kV according to patient size. COMPARISON: None. FINDINGS: Image quality: Diagnostic CSF spaces: Basal cisterns are patent. Lateral ventricles are symmetric. Volume: Vascular calcifications. Periventricular white matter disease is commonly seen with chronic microangiopathy. Volume loss is present. These findings are [id number] Brain: No acute hemorrhage. No gross loss of rodrigez-white differentiation. Craniofacial structures: Mild paranasal sinus mucosal thickening. IMPRESSION: No acute intracranial pathology. Called to for Dr. Sebastian at timestamp below. Consider MRI to further evaluate for infarct if necessary. This study fulfills neurological imaging criteria for inclusion or exclusion of acute stroke therapies based on available published neurological imaging guidelines. Dictated by: Gato Owusu M.D. on 07/01/2024 at 20:54 Approved by: Gato Owusu M.D. on 07/01/2024 at 20:56 ECG Data Attestation: I personally reviewed and interpreted this ECG as follows: Prior ECG tracings: available for review Interpretation: Sinus bradycardia rate of 43 WA 182 QRS 86 QTC of 422, no acute ST elevation depression. Patient had sinus bradycardia HR 56 on prior 01/06/2024, no acute ST changes MDM Narrative Medical decision making narrative: 64-year-old female with symptoms seems most consistent with prior potential stroke. Sudden onset about 8:00 a.m. this evening patient's NIH is 2 patient states symptoms have been improving she does not feel like she was back to baseline but her and significant other state improved. POC glucose was appropriate. Noncontrast head CT is negative results were called to myself by Dr. Owusu Head and neck CT angio shows no acute abnormalities of the head or neck. EKG shows sinus bradycardia patient has been bradycardic in the 40s and 50s on past visits. Labs show white count of 8.5 hemoglobin of 13 platelets of 285. Patient was has a little bit of hyponatremia with a sodium of 125, asked for comparison was 135 in January of 2024. This is also potential source of patient's symptoms although with sudden abrupt onset suspect stroke still. Potassium 4.1 chloride 91 CO2 is 28 BUN 8 creatinine 0.71 glucose is 146 LFTs are all appropriate. Patient was within window for tPA but symptoms are fairly mild her NIH is 2 but really she just has some mild dysarthria and aphasia which is still improving here in the department on it this time I would put her NIH at 1 more for aphasia with no dysarthria appreciated. Discussed with patient and family do not feel that the risks outweigh the benefit of giving tPA and was held. Patient did receive aspirin 325 mg. Was quite hypertensive initially but has had improvement without any intervention 170 systolic with a diastolic of 74. Spoke with Dr. Cook, for observation for rule out stroke versus hyponatremia. Does ask that we give 500 cc bolus of normal saline. Discharge Plan Departure Patient Disposition: Admitted as Observation Clinical Impression: Expressive aphasia, Hyponatremia Admit Date/Time: 07/01/24 22:03 Admit Provider: Stoney Cook
--- NOTE | 2024-07-01 20:52 | EKG_ITS ---
[address] [id number] [address] [address] Test Date: 2024-07-01 Pat Name: Marianna Roberts Department: Room: 206 Gender: Female Hearing Screener: : 1960 Requested By: Order Number: [id number] Reading MD: Julian Paez MD Measurements Intervals [place] Rate: 43 P: 60 ND: 182 QRS: 25 QRSD: 86 T: 65 QT: 500 QTc: 422 Interpretive Statements Marked sinus bradycardia Electronically Signed On 07-08-2024 10:34:22 PST by Julian Paez MD
[2024-07-01 20:53] LABS: INR 0.9 (0.9-1.3); Prothrombin Time 10.4 SECONDS (9.4-12.5)
[2024-07-01 20:55] LABS: PTT Partial Thromboplastin Tim 38 SECONDS (25.1-36.5)
[2024-07-01 20:57] LABS: Alanine Aminotransferase 16 IU/L (<35); Albumin 4.7 g/dL (3.5-5.0); Albumin Globulin Ratio 1.3 (1.0-2.8); Alkaline Phosphatase 75 U/L (38-126); Aspartate Aminotransferase 38 IU/L (14-36); BUN Creatinine Ratio 11.3 (6-22); Bilirubin Total 0.7 mg/dL (0.2-1.3); Blood Urea Nitrogen 8 mg/dL (7-17); Calcium 9.4 mg/dL (8.4-10.2); Carbon Dioxide 28 mmol/L (22-32); Chloride 91 mmol/L (98-107); Creatine Kinase 60 U/L (30-135); Estimated Glomerular Filt Rate > 60 mL/min (>60); Ethanol (ETOH) < 10 mg/dL; Globulin 3.6 g/dL (1.7-4.1); Glucose 146 mg/dL (80-110); HEMOLYSIS 18 (0-50); Potassium 4.1 mmol/L (3.4-5.1); Sodium 125 mmol/L (137-145); Total Protein 8.3 g/dL (6.3-8.2)
[2024-07-01 21:08] LABS: Troponin I < 0.012 ng/mL (0.01-0.034)
[2024-07-01] MEDS: ASPIRIN 81 MG CHEW TAB 324 MG PO (21:33)
[2024-07-01] MEDS: SODIUM CHLORIDE 0.9% 500 ML 1000 ML IV (22:11)
[2024-07-01 22:33] LABS: Ur Creatinine Normal (Normal); Ur Specific Gravity Normal (Normal); Urine Amphetamines Negative (Negative); Urine Barbiturates Negative (Negative); Urine Benzodiazepines Negative (Negative); Urine Cocaine Negative (Negative); Urine MDMA Negative (Negative); Urine Methadone Negative (Negative); Urine Methamphetamines Negative (Negative); Urine Opiates Negative (Negative); Urine Phencyclidine Negative (Negative); Urine THC Negative (Negative); Urine pH Normal (Normal)
[2024-07-01 22:34] LABS: Urine Oxycodone Negative (Negative); Urine Tricyclic Antidepressant Negative (Negative)
[2024-07-01] MEDS: ACETAMINOPHEN 325 MG TABLET 650 MG PO (23:36)
[2024-07-02 04:00] VITALS: BP 126/61; PULSE 41; RESP 16; TEMP 36.8; O2SAT 98
[2024-07-02 05:47] LABS: Add Manual Diff / Slide Review NO; Basophils Absolute Auto 100 /uL (0-100); Basophils Percent Auto 0.8 % (0-2); Eosinophils Absolute Auto 200 /uL (0-450); Eosinophils Percent Auto 1.9 % (2-4); Hemoglobin 12.1 g/dL (12.0-16.0); Lymphocytes Absolute Auto 2300 /uL (1100-4500); Lymphocytes Percent Auto 24.7 % (25-40); Mean Corpuscular HGB Conc 34.5 % (30-36); Mean Corpuscular Hemoglobin 32.8 PG (26-34); Mean Corpuscular Volume 95.2 fL (80-100); Monocytes Absolute Auto 500 /uL (0-900); Monocytes Percent Auto 5.4 % (3-14); Neutrophils Absolute Auto 6200 /uL (1500-7000); Neutrophils Percent Auto 67.2 % (50-75); Platelet Count 242 X10^3/uL (150-400); Red Blood Cell Count 3.68 X10^6/uL (4.0-5.2); Red Cell Distribution Width 13.9 % (11.6-14.8); White Blood Cell Count 9.3 X10^3/uL (4.5-11.0)
--- NOTE | 2024-07-02 06:59 | DI.MRI.S_ITS ---
PROCEDURE: MR HEAD/BRAIN WO CON INDICATIONS: rule out cva TECHNIQUE: Noncontrast axial T1 spin echo, axial T2 fast spin echo, sagittal and axial FLAIR, coronal T2 fast spin echo, axial gradient echo, axial diffusion and ADC through the brain. COMPARISON: None. FINDINGS: CSF Spaces: Basal cisterns are patent. No extra-axial fluid collections. Ventricles are normal in size and shape. Brain: No intracranial masses or hemorrhage. [place]/white matter interface is normal. Brainstem appears normal. Diffusion-weighted sequence is unremarkable without evidence of acute infarct. Normal intravascular flow voids are present. Skull and face: Calvarium has normal marrow signal. Orbits appear normal. Sinuses: Bilateral maxillary sinus mucosal thickening measures up to 4 mm IMPRESSION: Unremarkable MRI brain without acute infarct, hemorrhage or mass lesion. Incidental bilateral maxillary mucosal sinus disease Approved by: Paulo Alcaraz M.D. on 07/02/2024 at 9:50
--- NOTE | 2024-07-02 07:00 | P.HP_ITS ---
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 Per the patient report, around 8 AM this morning the patient was walking out to take the trash when she had a hard time with word findings. The patient states that this only lasted transiently and that her symptoms did improve by the time she arrived to our ER. Patient also has some tingling and numbness in her right hand and has some associated headache this evening. Otherwise the patient denies any focal weakness, changes in vision, facial drooping. The patient denies any prior history of TIA or CVA. The patient also denies any recent fever, chills, nausea, vomiting or diarrhea. In our emergency room, the patient was hemodynamically stable. CT and CTA of head and neck are negative for acute stroke. The patient does have sinus bradycardia with heart rate in the 40s and 50s. Sodium level 125. NIH per your physician was 1 as patient symptoms were improving. No TPA was given. Aspirin was given. NS was given for hyponatremia. [facility] Medical History Hx of ovarian cancer Ovarian cancer Diabetes Hyperlipidemia Renal insufficiency Seasonal allergic rhinitis History of breast cancer Surgical History History of bilateral ligation of fallopian tubes Social History household members: spouse Smoking Status: Former smoker Tobacco: How many years used: 2 alcohol intake: current substance use type: does not use Meds Home Medications and Allergies Home Medications Medication Instructions Recorded Confirmed Type dicyclomine 10 mg capsule 10 mg PO ONCE PRN IBS 09/03/20 07/01/24 History blood-glucose meter #1 ea 12/24/20 07/01/24 Rx lancets 33 gauge (BD Ultra Fine #100 ea 12/24/20 07/01/24 Rx Lancets) cetirizine 10 mg tablet (Aller-Dago) 10 mg PO DAILY PRN Allergy Symptoms 11/22/21 07/01/24 History blood sugar diagnostic (True #100 strips 11/07/22 07/01/24 Rx Metrix Glucose Test Strip) metformin 500 mg tablet 1,000 mg PO BEDTIME 07/01/24 07/01/24 History Allergies Allergy/AdvReac Type Severity Reaction Status Date / Time metformin AdvReac Mild low grade Verified 04/24/24 07:47 nausea, cramping, constipation, and pervasive gas Review of Systems Review of Systems ROS: Yes All systems reviewed with the patient and are negative except as otherwise documented Exam Vital Signs (past 8 hours): - 07/02/24 04:00 Temperature 98.2 F Pulse Rate 41 L Respiratory Rate 16 Blood Pressure 126/61 Pulse Oximetry 98 Oxygen Flow Rate 0 Oxygen Delivery Method Room Air Oxygen Flow Rate 0 Narrative Exam Narrative: GENERAL: The patient is not in any acute distressed. Awake and alert. HEENT: Nonicteric sclerae, PERRLA, EOMI. Oropharynx clear. Moist mucous membranes. Conjunctivae appear well perfused. HEART: Regular rate and rhythm without murmurs. No lower extremities edema. LUNGS: Clear to auscultation bilaterally. No wheezing, crackles or rhonchi ABDOMEN: Soft, positive bowel sounds, nontender. SKIN: No rash, no excessive bruising, petechiae, or purpura. NEUROLOGIC: AxO x 3. Very slight difficulty with word finding. Cranial nerves II-XII intact without motor/sensory deficit. Objective Labs 07/02/24 05:20 07/01/24 20:35 Labs: Laboratory Results - last 24 hr 07/01/24 07/01/24 07/02/24 20:35 22:17 05:20 WBC 8.5 9.3 RBC 4.29 3.68 L Hgb 13.9 12.1 Hct 41.1 35.0 L MCV 95.9 95.2 MCH 32.4 32.8 MCHC 33.8 34.5 RDW 14.2 13.9 Plt Count 285 242 Neut % (Auto) 50.0 67.2 Lymph % (Auto) 40.9 H 24.7 L [place] % (Auto) 6.7 5.4 Eos % (Auto) 2.1 1.9 L Baso % (Auto) 0.3 0.8 Neut # (Auto) 4300 6200 Lymph # (Auto) 3500 2300 [place] # (Auto) 600 500 Eos # (Auto) 200 200 Baso # (Auto) 0 100 PT 10.4 INR 0.9 APTT 38 H Sodium 125 L Potassium 4.1 Chloride 91 L Carbon Dioxide 28 BUN 8 Creatinine 0.71 Estimated GFR > 60 BUN/Creatinine Ratio 11.3 Glucose 146 H Calcium 9.4 Total Bilirubin 0.7 AST 38 H ALT 16 Alkaline Phosphatase 75 Total Creatine Kinase 60 Troponin I < 0.012 Total Protein 8.3 H Albumin 4.7 Globulin 3.6 Albumin/Globulin Ratio 1.3 U Opiates 300ng/mL cut Negative Ur Oxycodone Screen Negative Urine Methadone Screen Negative Ur Barbiturates Screen Negative U Tricyclic Antidepress Negative Ur Phencyclidine Scrn Negative Ur Amphetamines Screen Negative U Methamphetamines Scrn Negative Ur MDMA Scrn (Ecstasy) Negative U Benzodiazepines Scrn Negative Urine Cocaine Screen Negative U Marijuana (THC) Screen Negative Urine pH Normal Urine Specific [place] Normal Ethyl Alcohol < 10 Ur Creatinine Normal Assessment & Plan Assessment & Plan narrative: Possible TIA/CVA. Admit the patient to medical telemetry under observation. Patient did complain of having expressive aphasia though symptoms much improved. CT the head and neck are negative. Continue PT/OT/ST. Continue aspirin. Check lipid panel. Check A1C. Monitor for afib/aflutter on tele. Will obtain MRI in the morning to assess for CVA. Hyponatremia. Secondary to dehydration. Sodium 125 s/p NS. Will recheck sodium level. Qyq-[id number] diabetes. Monitor glucose with SQ insulin hold home oral DM medications. HTN. Monitor blood pressure and treat accordingly. DVT prophylaxis heparin SQ Code Status DNR/DNI Disposition likely home in 1 to 2 days. Time-Based Coding :: [TOTAL MINUTES] spent with patient and on the chart (including review of chart, obtaining history, exam, reviewing outside data, placing orders, documenting exam and treatment plan, and counseling patient) on [DATE]. Quality VTE Deep Vein Thrombosis/Pulmonary Embolism Present on Admission: No
--- NOTE | 2024-07-02 07:18 | P.PN_ITS ---
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 Per the patient report, around 8 AM this morning the patient was walking out to take the trash when she had a hard time with word findings. The patient states that this only lasted transiently and that her symptoms did improve by the time she arrived to our ER. Patient also has some tingling and numbness in her right hand and has some associated headache this evening. Otherwise the patient denies any focal weakness, changes in vision, facial drooping. The patient denies any prior history of TIA or CVA. The patient also denies any recent fever, chills, nausea, vomiting or diarrhea. In our emergency room, the patient was hemodynamically stable. CT and CTA of head and neck are negative for acute stroke. The patient does have sinus bradycardia with heart rate in the 40s and 50s. Sodium level 125. NIH per your physician was 1 as patient symptoms were improving. No TPA was given. Aspirin was given. NS was given for hyponatremia. S: Exam Vital Signs (past 8 hours): - 07/02/24 04:00 Temperature 98.2 F Pulse Rate 41 L Respiratory Rate 16 Blood Pressure 126/61 Pulse Oximetry 98 Oxygen Flow Rate 0 Oxygen Delivery Method Room Air Oxygen Flow Rate 0 Narrative Exam Narrative: NAD, alert and oriented. Fluent speech. Lungs are clear, normal rate and effort. Heart is regular, no murmur gallop or rub. Abdomen is soft, non distended. Extremities are free of edema. Objective Imaging Multiple studies:: Radiologist's impression: Head and neck CTA: No significant intracranial arterial abnormality is seen. No significant abnormality is seen within the arteries of the neck. Brain CT: No acute intracranial pathology. Called to for Dr. Sebastian at timestamp below. Consider MRI to further evaluate for infarct if necessary. Labs 07/02/24 05:20 07/01/24 20:35 Labs: Laboratory Results - last 24 hr 07/01/24 07/01/24 07/02/24 20:35 22:17 05:20 WBC 8.5 9.3 RBC 4.29 3.68 L Hgb 13.9 12.1 Hct 41.1 35.0 L MCV 95.9 95.2 MCH 32.4 32.8 MCHC 33.8 34.5 RDW 14.2 13.9 Plt Count 285 242 Neut % (Auto) 50.0 67.2 Lymph % (Auto) 40.9 H 24.7 L [place] % (Auto) 6.7 5.4 Eos % (Auto) 2.1 1.9 L Baso % (Auto) 0.3 0.8 Neut # (Auto) 4300 6200 Lymph # (Auto) 3500 2300 [place] # (Auto) 600 500 Eos # (Auto) 200 200 Baso # (Auto) 0 100 PT 10.4 INR 0.9 APTT 38 H Sodium 125 L Potassium 4.1 Chloride 91 L Carbon Dioxide 28 BUN 8 Creatinine 0.71 Estimated GFR > 60 BUN/Creatinine Ratio 11.3 Glucose 146 H Calcium 9.4 Total Bilirubin 0.7 AST 38 H ALT 16 Alkaline Phosphatase 75 Total Creatine Kinase 60 Troponin I < 0.012 Total Protein 8.3 H Albumin 4.7 Globulin 3.6 Albumin/Globulin Ratio 1.3 U Opiates 300ng/mL cut Negative Ur Oxycodone Screen Negative Urine Methadone Screen Negative Ur Barbiturates Screen Negative U Tricyclic Antidepress Negative Ur Phencyclidine Scrn Negative Ur Amphetamines Screen Negative U Methamphetamines Scrn Negative Ur MDMA Scrn (Ecstasy) Negative U Benzodiazepines Scrn Negative Urine Cocaine Screen Negative U Marijuana (THC) Screen Negative Urine pH Normal Urine Specific [place] Normal Ethyl Alcohol < 10 Ur Creatinine Normal PFSH Medical History Hx of ovarian cancer Ovarian cancer Diabetes Hyperlipidemia Renal insufficiency Seasonal allergic rhinitis History of breast cancer Surgical History History of bilateral ligation of fallopian tubes Social History household members: spouse Smoking Status: Former smoker Tobacco: How many years used: 2 alcohol intake: current substance use type: does not use Assessment & Plan Assessment & Plan narrative: 1. Possible TIA/CVA. Expressive aphasia, present on admission and resolved. - Admit the patient to medical telemetry under observation. Patient did complain of having expressive aphasia though symptoms much improved. CT the head and neck are negative. Continue PT/OT/ST. Continue aspirin. Check lipid panel. Check A1C. Monitor for afib/aflutter on tele. Will obtain MRI in the morning to assess for CVA. 2. Hyponatremia. Present on admission and active. - Secondary to dehydration. Sodium 125 s/p NS. Will recheck sodium level. 3. Bji-haqyesx-eoluiskwp diabetes. Present on admission and stable. - Monitor glucose with SQ insulin hold home oral DM medications. 4. HTN. Present on admission and stable. - Monitor blood pressure and treat accordingly. Plan: -MRI -PT, ST assessments. -discharge planning. DVT prophylaxis heparin SQ Code Status DNR/DNI Anticipate 1 midnight of medical care, observation status. Time-Based Coding :: [TOTAL MINUTES] spent with patient and on the chart (including review of chart, obtaining history, exam, reviewing outside data, placing orders, documenting exam and treatment plan, and counseling patient) on [DATE]. Quality VTE Deep Vein Thrombosis/Pulmonary Embolism Present on Admission: No
[2024-07-02 08:00] VITALS: BP 129/67; PULSE 47; RESP 19; TEMP 36.6; O2SAT 99
[2024-07-02 08:09] LABS: BUN Creatinine Ratio 13.8 (6-22); Blood Urea Nitrogen 8 mg/dL (7-17); Calcium 8.6 mg/dL (8.4-10.2); Carbon Dioxide 25 mmol/L (22-32); Chloride 99 mmol/L (98-107); Estimated Glomerular Filt Rate > 60 mL/min (>60); Glucose 103 mg/dL (80-110); HEMOLYSIS < 15 (0-50); Potassium 3.7 mmol/L (3.4-5.1); Sodium 129 mmol/L (137-145)
[2024-07-02 08:19] LABS: Hemoglobin A1C% w Est Avg Glu 6.3 % (4.0-6.0)
[2024-07-02 08:21] LABS: Cholesterol 187 mg/dL (140-199); HDL Cholesterol 55 mg/dL (40-60); LDL Cholesterol Calculated 115 mg/dL (<100); Triglycerides 87 mg/dL (35-150)
[2024-07-02] MEDS: HEPARIN 5,000 UNIT/ML VIAL 5000 UNIT SUBCUT (08:57)
[2024-07-02] MEDS: ACETAMINOPHEN 325 MG TABLET 650 MG PO (09:25)
--- NOTE | 2024-07-02 10:46 | PT-IP ANOTE ---
PT emekaal received and EMR reviewed. Checked on pt and pt refused PT. spouse in room. pt stated that she has been moving by herself independently in the hospital and does not think she needs PT. pt stated that she just finished walking in the hallway and NAC confirmed.
--- NOTE | 2024-07-02 11:27 | OT.IP.EVAL ---
Current Diagnoses Transient cerebral ischemic attack, unspecified (07/01/24) Past Medical History (Last Reviewed 07/02/24 @ 07:19 by Carroll Angeles MD) Diabetes History of breast cancer Hx of ovarian cancer Hyperlipidemia Ovarian cancer Renal insufficiency Seasonal allergic rhinitis Surgical History (Last Reviewed 07/02/24 @ 07:19 by Carroll Angeles MD) History of bilateral ligation of fallopian tubes Occupational Therapy Inpatient Evaluation/Re-Eval M1 PT/OT-IP Prior Functional Status Start: 07/02/24 13:42 Freq: NEEDED Status: Active Protocol: Document 07/02/24 13:42 CGR (Rec: 07/02/24 13:49 CGR [id number]) Medical Review Prior Functional Status Medical History Reviewed Yes Communication Pt is an effective verbal communicator. Mobility and Gait Pt was IND at baseline and goes to the gym x4 a week. Activities of Daily Living and IADL's Pt was IND at baseline, drives , and does all IADLs without difficulty. Social History Household Members spouse Living Arrangements Apartment/Condo Number of Floors (Floors) One Floor Number of Stairs To Enter/Railing? 2 steps with R rail assending or B rails if entering in the garage. Home Environment Standard Height Toilet,Walk in Shower,Tub/Shower Home Equipment Hand Held Shower,Grab Bars In Shower Employment Status Retired Additional Social History Comment Pt has a flat bed M2 OT-IP Current Condition Start: 07/02/24 13:42 Freq: Status: Active Protocol: Document 07/02/24 13:42 CGR (Rec: 07/02/24 13:49 CGR [id number]) Occupational Therapy Current Condition Current Condition Evaluation Date 07/02/24 Treatment Diagnosis Transient aphasia, R hand numbness Diagnosis Onset Date 07/01/24 M3 OT- IP Subjective and Pain Start: 07/02/24 13:42 Freq: Status: Active Protocol: Document 07/02/24 13:42 CGR (Rec: 07/02/24 13:49 CGR [id number]) OT- Subjective Occupational Therapy Visit Type Type Initial Evaluation Visit Start Time 11:15 Visit Stop Time 11:27 Notes Pt just returned from MRI OT Pain Assessment Pain When Pain Assessed At Rest Pain Present Pain Present Denied Pain M4 OT- IP ADL's Start: 07/02/24 13:42 Freq: Status: Active Protocol: Document 07/02/24 13:42 CGR (Rec: 07/02/24 13:49 CGR [id number]) OT [id number] Comments OT Self-Feeding Comments not meal time OT ADL-Grooming General Evaluation Grooming Ability Independent Areas Needing Assistance Face Washing Comments OT Grooming Comments at sink OT ADL-Oral Care General Eval Oral Care Ability Independent Areas of Assistance Brushing Teeth Comments Oral Care Comments standing at sink OT ADL-Dressing General Eval Lower Body Dressing Ability Independent Areas Needing Assistance Socks Comments OT Dressing Comments seated in chair OT ADL-Toileting General Evaluation Toileting Ability Independent Comments OT Toileting Comments seated on toilet for urination OT ADL-Bathing Comments OT Bathing Comments not performed M5 OT- IP IADL's Start: 07/02/24 13:42 Freq: Status: Active Protocol: Document 07/02/24 13:42 CGR (Rec: 07/02/24 13:49 CGR [id number]) OT-Instrumental Activities of Daily Living Deficits IADL Deficits Identified No Deficits Home Safety Awareness Awareness of Need for Assistance at Home Good Awareness Ability to Problem Solve Emergency Able to Problem Solve Situations Medication Management Medication Management No Deficits Identified Money Management Money Management No Deficits Identified Meal Preparation Meal Preparation No Deficits Identified Product Safety Coordinator Product Safety Coordinator No Deficits Identified Driving Driving Comments Pt is an active line haul driver M6 OT- IP Functional Cognition Start: 07/02/24 13:42 Freq: Status: Active Protocol: Document 07/02/24 13:42 CGR (Rec: 07/02/24 13:49 CGR [id number]) Cognitive Factors Limiting Selfcare Function Cognitive Ability Level of Alertness Alert Patient Orientation Name,Age,Birthday,Month,Date, Year,Day of Week,Place, Situation Attention Span Ability Capable of Focused Attention, Capable of Sustained Attention Ability to Follow Commands Able to Follow Multi-Step Commands OT- Vision and Hearing OT- Hearing Assessment OT- Hearing Assessment WFL OT- Vision Assessment Visual Acuity Glasses All The Time Visual Attentiveness WFL Occular Pursuits WFL Visual Convergence WFL M7 OT- IP Mobility and Balance Start: 07/02/24 13:42 Freq: Status: Active Protocol: Document 07/02/24 13:42 CGR (Rec: 07/02/24 13:49 CGR [id number]) OT-Transfer Assessment Sit to and From Stand Sit to and from Stand Independent Transfers Transfer Ability Independent Technique Transfer Destination Chair,Toilet Transfer Technique Stand Step Pivot Devices Transfer Assistive Devices Gait Belt Comments Mobility Comments Mobility around the room and into [place] to stairs. OT- Gait Assessment Gait Gait Assistance Required: Independent Assistive Devices Assistive Device Gait Belt Comments Gait Ability Comments Mobility around the room and into [place] to stairs. OT- Balance Assessment Sitting Balance and Reactions Static Sitting Balance Ability Normal Dynamic Sitting Balance Ability Normal Standing Balance and Reactions Static Standing Balance Ability Normal Dynamic Standing Balance Ability Normal M8 OT- IP Objective Assessments Start: 07/02/24 13:42 Freq: Status: Active Protocol: Document 07/02/24 13:42 CGR (Rec: 07/02/24 13:49 CGR [id number]) OT Gross Range of Motion Upper Extremity Range of Motion Assessment Within Functional Limits OT Strength Upper Extremity Strength Assessment Within Functional Limits Comments Strength Comments 4+/5 OT- Coordination Assessment Upper Extremity Finger to Nose Test Within Functional Limits Finger Tapping Test Within Functional Limits OT-Muscle Tone Assessment Muscle Tone WNL Yes OT Sensation Assessment Comments Summary Comments Pt states that sensation feels normal Edema Edema Absent M9 OT- IP Assessment and Plan Start: 07/02/24 13:42 Freq: Status: Active Protocol: Document 07/02/24 13:42 CGR (Rec: 07/02/24 13:49 CGR [id number]) OT Summary Assessment and Plan Potential Rehabilitation Potential Excellent Analytic Complexity at Evaluation Low Summary Progress Towards Goals Safe For Discharge,Goals Met Assessment Summary Pt presents after transient aphasia and R hand numbness and tingling. Pt currently is at her baseline of IND. No further OT needs. Frequency of Treatment Frequency Of Treatment Discharge Discharge Recommendations OT Discharge Recommendations Home Transportation Needs at Discharge Private Vehicle
--- NOTE | 2024-07-02 12:08 | PM.DS.1 ---
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 Per the patient report, around 8 AM this morning the patient was walking out to take the trash when she had a hard time with word findings. The patient states that this only lasted transiently and that her symptoms did improve by the time she arrived to our ER. Patient also has some tingling and numbness in her right hand and has some associated headache this evening. Otherwise the patient denies any focal weakness, changes in vision, facial drooping. The patient denies any prior history of TIA or CVA. The patient also denies any recent fever, chills, nausea, vomiting or diarrhea. In our emergency room, the patient was hemodynamically stable. CT and CTA of head and neck are negative for acute stroke. The patient does have sinus bradycardia with heart rate in the 40s and 50s. Sodium level 125. NIH per your physician was 1 as patient symptoms were improving. No TPA was given. Aspirin was given. NS was given for hyponatremia. Discharge Providers Provider Date of admission: 07/01/24 22:03 Discharge Date: 07/02/24 Primary care physician: Guero Kaiser MD Consults: 07/01/24 22:04 Consult to Occupational Therapy Evaluate & Treat Comment: Physician Instructions: Evaluate and treat Consult to Physical Therapy Evaluate & Treat Comment: Physician Instructions: Evaluate and Treat 07/02/24 07:00 Consult to Speech Therapy Evaluate & Treat Comment: cva Physician Instructions: Evaluate and treat Discharge provider: Carroll Angeles MD Summary Hospital Course Discharge Diagnosis: 1. Possible TIA/CVA. Present on admission and resolved. -Patient did complain of having expressive aphasia though symptoms much improved. 2. Hyponatremia. Present on admission and improved. -Secondary to dehydration. Sodium 125 s/p NS. Will recheck sodium level. Improved to 129. 3. Vgg-xqufmbg-qauegiitu diabetes. Present on admission and stable. 4. HTN. Present on admission and stable. -Monitor blood pressure and treat accordingly. 5. Bradycardia, present on admission and stable. Hospital Course: She was admitted after transient neurologic episode of apparent expressive aphasia and right arm numbness. She had no further neurologic symptoms. She was mildly hyponatremic and this improved with a small amount of saline. She declined physical therapy assessment and did work with OT. She had no other neurologic events and denies a history of this. She did have a headache when this event happened but denied any chronic history of headaches. Imaging was unremarkable. Her sodium did improve to 129. Dual antiplatelet therapy was recommended as well as a statin. She was somewhat reluctant about the statin but advised that this would be a good idea until she can speak more about this with her primary care physician. Dual antiplatelets can stop after 21 days and then be followed by aspirin monotherapy. She does have a resting bradycardia, it was unclear to me with the chronicity of this he was. A review of her vital sign trends in the electronic medical record indicates that she has been bradycardic likely going back to last January. Status at Discharge Cognitive/behavioral status at discharge: oriented Functional status at discharge: independent ambulation Overall status at discharge: patient is back to baseline Time Spent with Patient Time spent: Greater than 30 minutes Exam Vital Signs (past 8 hours): - 07/02/24 08:00 Temperature 97.9 F Pulse Rate 47 L Respiratory Rate 19 Blood Pressure 129/67 Pulse Oximetry 99 Oxygen Flow Rate 0 Oxygen Delivery Method Room Air Oxygen Flow Rate 0 Narrative Exam Narrative: NAD, alert and oriented. Fluent speech. Lungs are clear, normal rate and effort. Heart is regular, no murmur gallop or rub. Abdomen is soft, non distended. Extremities are free of edema. Normal speech Normal cranial nerves, no droop or slurred speech. Normal motor strength and gait. Objective ECG Impression: Sinus bradycardia, 43. Imaging Multiple studies:: Radiologist's impression: Brain MRI: Unremarkable MRI brain without acute infarct, hemorrhage or mass lesion. Incidental bilateral maxillary mucosal sinus disease Brain CT: No acute intracranial pathology. Called to for Dr. Sebastian at timestamp below. Consider MRI to further evaluate for infarct if necessary. This study fulfills neurological imaging criteria for inclusion or exclusion of acute stroke therapies based on available published neurological imaging guidelines. Head and neck CTA: No significant intracranial arterial abnormality is seen. No significant abnormality is seen within the arteries of the neck. Labs 07/02/24 05:20 07/02/24 05:20 Labs: Laboratory Results - last 24 hr 07/01/24 07/01/2407/02/24 20:35 22:17 05:20 WBC 8.5 9.3 RBC 4.29 3.68 L Hgb 13.9 12.1 Hct 41.1 35.0 L MCV 95.9 95.2 MCH 32.4 32.8 MCHC 33.8 34.5 RDW 14.2 13.9 Plt Count 285 242 Neut % (Auto) 50.0 67.2 Lymph % (Auto) 40.9 H 24.7 L [place] % (Auto) 6.7 5.4 Eos % (Auto) 2.1 1.9 L Baso % (Auto) 0.3 0.8 Neut # (Auto) 4300 6200 Lymph # (Auto) 3500 2300 [place] # (Auto) 600 500 Eos # (Auto) 200 200 Baso # (Auto) 0 100 PT 10.4 INR 0.9 APTT 38 H Sodium 125 L 129 L Potassium 4.1 3.7 Chloride 91 L 99 Carbon Dioxide 28 25 BUN 8 8 Creatinine 0.71 0.58 Estimated GFR > 60 > 60 BUN/Creatinine Ratio 11.3 13.8 Glucose 146 H 103 Hemoglobin A1c Calcium 9.4 8.6 Total Bilirubin 0.7 AST 38 H ALT 16 Alkaline Phosphatase 75 Total Creatine Kinase 60 Troponin I < 0.012 Total Protein 8.3 H Albumin 4.7 Globulin 3.6 Albumin/Globulin Ratio 1.3 Triglycerides Cholesterol LDL Cholesterol, Calc HDL Cholesterol U Opiates 300ng/mL cut Negative Ur Oxycodone Screen Negative Urine Methadone Screen Negative Ur Barbiturates Screen Negative U Tricyclic Antidepress Negative Ur Phencyclidine Scrn Negative Ur Amphetamines Screen Negative U Methamphetamines Scrn Negative Ur MDMA Scrn (Ecstasy) Negative U Benzodiazepines Scrn Negative Urine Cocaine Screen Negative U Marijuana (THC) Screen Negative Urine pH Normal Urine Specific [place] Normal Ethyl Alcohol < 10 Ur Creatinine Normal 07/02/24 Unknown WBC RBC Hgb Hct MCV MCH MCHC RDW Plt Count Neut % (Auto) Lymph % (Auto) [place] % (Auto) Eos % (Auto) Baso % (Auto) Neut # (Auto) Lymph # (Auto) [place] # (Auto) Eos # (Auto) Baso # (Auto) PT INR APTT Sodium Potassium Chloride Carbon Dioxide BUN Creatinine Estimated GFR BUN/Creatinine Ratio Glucose Hemoglobin A1c 6.3 H Calcium Total Bilirubin AST ALT Alkaline Phosphatase Total Creatine Kinase Troponin I Total Protein Albumin Globulin Albumin/Globulin Ratio Triglycerides 87 Cholesterol 187 LDL Cholesterol, Calc 115 H HDL Cholesterol 55 U Opiates 300ng/mL cut Ur Oxycodone Screen Urine Methadone Screen Ur Barbiturates Screen U Tricyclic Antidepress Ur Phencyclidine Scrn Ur Amphetamines Screen U Methamphetamines Scrn Ur MDMA Scrn (Ecstasy) U Benzodiazepines Scrn Urine Cocaine Screen U Marijuana (THC) Screen Urine pH Urine Specific [place] Ethyl Alcohol Ur Creatinine PFSH Medical History Hx of ovarian cancer Ovarian cancer Diabetes Hyperlipidemia Renal insufficiency Seasonal allergic rhinitis History of breast cancer Surgical History History of bilateral ligation of fallopian tubes Social History household members: spouse Smoking Status: Former smoker Tobacco: How many years used: 2 alcohol intake: current substance use type: does not use Discharge Assessment & Plan Assessment and Plan Assessment: 1. Possible TIA/CVA. Present on admission and resolved. -Patient did complain of having expressive aphasia though symptoms much improved. 2. Hyponatremia. Present on admission and improved. -Secondary to dehydration. Sodium 125 s/p NS. Will recheck sodium level. Improved to 129. 3. Qkq-ckgbqyo-rlhgyyzrg diabetes. Present on admission and stable. 4. HTN. Present on admission and stable. -Monitor blood pressure and treat accordingly. 5. Bradycardia, present on admission and stable. Plan of Treatment: Stable for discharge with resolution of symptoms. She will be on dual antiplatelet therapy and statin until follow up with her primary care doctor. She was a little bit apprehensive about the statin. Have recommended 21 days of dual antiplatelet therapy given her relatively convincing story for transient expressive aphasia with right arm numbness. In addition she will increase her salt intake over the next several days given her mildly low sodium. Recommended a repeat BMP next week when she sees her primary care. Deferred echo to outpatient given her history of echos in the past and no reports of PFO or other shots. Discharge Plan Discharge Plan Patient Disposition: Home Provider Discharge Comment: Stable for discharge home on dual antiplatelet therapy and statin. She will increase her salt over the next several days as well. Primary care within 1 week with repeat sodium labs. Discharge orders & Medications Prescriptions: New aspirin 81 mg capsule 81 mg PO DAILY Qty: 30 2RF clopidogrel 75 mg tablet 75 mg PO DAILY Qty: 30 2RF atorvastatin 40 mg tablet 40 mg PO BEDTIME Qty: 30 3RF Continued (DME) blood-glucose meter Kit See Rx Instructions .ROUTE .MEDSUPPLY Qty: 1 0RF Rx Instructions: Use to test blood glucose BID (DME) lancets [BD Ultra Fine Lancets] 33 gauge misc See Rx Instructions .ROUTE .MEDSUPPLY Qty: 100 6RF Rx Instructions: Use to test blood glucose twice daily (DME) True Metrix Glucose Test Strip Strip See Rx Instructions .ROUTE .COMPLEX Qty: 100 6RF Dose Instruction: USE TO TEST BLOOD GLUCOSE TWICE A DAY Rx Instructions: USE TO TEST BLOOD GLUCOSE TWICE A DAY dicyclomine 10 mg capsule 10 mg PO ONCE PRN (Reason: IBS) cetirizine [Aller-Dago] 10 mg Tablet 10 mg PO DAILY PRN (Reason: Allergy Symptoms) metformin 500 mg tablet 1,000 mg PO BEDTIME Follow up/Referrals: Guero Kaiser MD [Primary Care Provider] - 07/09/24 11:30 am (Appt:07/09 @ @ 11:30 with Antonette mcnulty please arrive 15 min prior to schedule appointment time ) Discharge Health Status Multidrug resistant organism: No MDRO Diet/Activity/Treatments Diet: Carb-consistent/Diabetic Activity: As tolerated. Visit Report/Discharge Packet Instructions: DI for Transient Ischemic Attack, DI for Hyponatremia Stand Alone Forms: Patient Portal/API, Stroke Signs & Symptoms Discharge Data Primary Care Provider: Guero Kaiser Quality VTE Deep Vein Thrombosis/Pulmonary Embolism Present on Admission: No
--- NOTE | 2024-07-02 12:24 | CM.DANOTE ---
Initial DCP Assessment Visit Note Reviewed EMR and team rounds for pt's medical status and updates. Met with pt/spouse at bedside to introduce self and role, pt was found to be alert/oriented, sitting upright in the recliner, stating that she feels very close to her baseline this morning. Pt lives with spouse independently at baseline in their own home in [place]. She has been medically cleared for home d/c, and her spouse will be transporting her home. No CM needs were identified at this time. Payor: Medicare PCP: Dr. Kaiser Pt is a 64 year-old F who presented to the ED last evening with her with c/o pt having altered mental status. She was found to have difficulty speaking yesterday morning around 8:00am, and by evening she was undable to get her words out, and had tingling in her R-hand. CT stroke was negative for abnormalities, although her symptoms were consistent with a stroke. She was also found to be hyponatremic in the ED labs. She was started on IV NS, and placed in OBS for continuing monitoring. This morning, she shares that most of her symptoms have resolved, and she was ready to d/c home. Discharge Planning/Care Management CM Discharge Assessment Start: 07/02/24 12:22 Freq: Status: Active Protocol: Document 07/02/24 12:23 DPL (Rec: 07/02/24 12:24 DPL [id number]) Discharge Planning Assessment Assigned Gate Guard DESIRE Sainz Advance Directives? Yes Advance Directives on File No History Provided By Patient,Significant Other, Medical Record Has Patient been admitted in last 30 No days? Prior Living Arrangements House Household Members spouse Type of transporation used prior to Drives own vehicle admit Independent with ADL's Yes Is patient alert and oriented? Yes Comment N/A Comment No AD at baseline. Comment No identified home d/c needs at this time. Barriers to Discharge No Discharge Plan Home Transportation Arrangement Spouse Whiteboard Updated in Patient Room with Yes name and ext. # of Gate Guard Review Status In Process Please Provide Date Initial DC 07/02/24 Assessment Was Performed
[2024-07-02] MEDS: CLOPIDOGREL 75 MG TABLET PO (12:34)
[2024-07-02] MEDS: ASPIRIN EC 81 MG TABLET PO (12:34)
--- NOTE | 2024-07-02 12:35 | SLP.IPNOTE ---
JEWEL STRINGER screened Pt for swallow and speech/language. Pt reported she was discharging soon and believes her speech/language are back to baseline. She denied swallowing difficulties.
--- NOTE | 2024-07-02 13:06 | DIET.CONS ---
Dietary Consultation Note Admission Date: 07/01/2024 22:03 Assessment: 64 y F admitted for altered mental status/difficulty speaking. RD screened for low BMI. PMH of severe protein calorie malnutrition in January 2024. Met with pt at bedside this morning. Pt reports no changes in appetite or reduction in PO intakes recently. Reports no weight loss. Reports usual body weight between 95-100 lb (43-45.45 kg). Per chart patient has had severe weight loss within last 6 months. UBW is consistently between 52-56 kg from November 2021 to December 2023 per chart. Additionally, in January this year pt reported UBW of 52.[address] per consult note. Pt's BMI is underweight. PMH of DM with recent A1c 6.0%. Ht: 160.02 cm Wt: 43.091 kg BMI: 16.8 UBW: 52-56 kg, on 01/06/24 was 50.802 kg (-15% weight loss within 6 months, severe) Last BM: 07/01/24 (07/01/24 22:52) MNA: 11 Jorge Score: 21 Diet: 07/01/24 Breakfast Heart Healthy Diet Diet Modifications: 07/01/24 20:32 NPO Diet Diet Modifications: December Diet as Tolerated: No NPO Type: Strict Labs: RBC 3.68 X10^6/uL (4.0-5.2) L 07/02/24 05:20 Hgb 12.1 g/dL (12.0-16.0) 07/02/24 05:20 Hct 35.0 % (36-46) L 07/02/24 05:20 Creatinine 0.58 mg/dL (0.52-1.04) 07/02/24 05:20 Hemoglobin A1c 6.3 % (4.0-6.0) H 07/02/24 Unknown Nutrition Diagnosis: Severe acute protein calorie malnutrition r/t inadequate PO intake as evidenced by BMI underweight for age (16.8) and 15% weight loss within 6 months (severe) Interventions: -Pt d/c today. Encouraged adequate meals as tolerated with snacks as needed. Discussed ONS as needed for additional kcals/protein to support weight gain. Monitoring/Evaluations: f/u if pt not d/c Electronically Signed by: Hyacinth Jalloh 07/02/24 13:[address] [id number]
--- NOTE | 2024-07-02 15:21 | PC.NURSE ---
Discharge: Pt feels ready to d/c home. NIH score is 0. Seen by speech therapist. No problems seen chewing or talking. She feels ready to go home. D/c packet reviewed with Brionna ZHU. Questions answered. Pt took her meds prior to d/c. Rx has been sent in. Pt d/c to home via auto with spouse.
== END 2024-07-02 12:30 | disposition home or self-care (01) | DRG 69 ==
LOC: ED 22:02 → AC 07-02 07:51
PROVIDERS: Admitting Provider Internal Medicine; Emergency Provider Emergency Medicine; PCP Family Medicine; Referring Provider Emergency Medicine; Visit Provider Internal Medicine
DX: G45.9 Transient cerebral ischemic attack, unspecified (principal); E87.1 Hypo-osmolality and hyponatremia; R47.01 Aphasia; E11.9 Type 2 diabetes mellitus without complications; E86.0 Dehydration; I10 Essential (primary) hypertension; Z66 Do not resuscitate; R00.1 Bradycardia, unspecified; R20.0 Anesthesia of skin; R29.702 NIHSS score 2; R29.700 NIHSS score 0; Z79.84 Long term (current) use of oral hypoglycemic drugs; Z87.891 Personal history of nicotine dependence
CPT/HCPCS: 36415; 70450; 70496; 70498; 70551; 80048; 80053; 80061; 80305; 80320; 82550; 82962; 83036; 84484; 85025; 85610; 85730; 93005; 97165; 99284; 99285; J1644; Q9967

== ENCOUNTER → 2024-07-04 12:50 | Outpatient (CLI) | payer MEDICARE, OTHER, SELFPAY ==
[2024-01-08 02:05] VITALS: BMI 19.8
[2024-07-01 22:52] VITALS: BMI 16.8
--- NOTE | 2024-07-04 | DI.MG.S_ITS ---
UNILATERAL RIGHT DIGITAL SCREENING MAMMOGRAM 3D/2D WITH CAD: 07/04/2024 CLINICAL: Routine screening. Personal history of left breast cancer. Comparison is made to exams dated: 07/02/2023 mammogram, 06/30/2022 mammogram - [facility], and 06/28/2021 mammogram - Outside facility. The breasts are heterogeneously dense, which may obscure small masses (category c / 51-75% glandular tissue). Current study was also evaluated with a Computer Aided Detection (CAD) system. There are benign calcifications in the right breast. There also are benign post operative findings in the right breast. No significant masses, calcifications, or other findings are seen in the breast. There has been no significant interval change. IMPRESSION: BENIGN There is no mammographic evidence of malignancy. A 1 year screening mammogram is recommended. This exam was interpreted at Station ID: [id number]. NOTE: For mammograms, a report in lay terms will be sent to the patient. Approximately 15% of breast malignancies will not be visualized mammographically. In the management of a palpable breast mass, a negative mammogram must not discourage biopsy of a clinically suspicious lesion. Electronically Signed By: Leatha long/ramsey:07/04/2024 15:44:51 letter sent: Normal Exam ACR BI-RADS Category 2: Benign
== END ==
PROVIDERS: PCP Family Medicine; Referring Provider Family Medicine; Visit Provider Family Medicine
DX: Z12.31 Encounter for screening mammogram for malignant neoplasm of breast (principal); Z85.3 Personal history of malignant neoplasm of breast; R92.333 Mammographic heterogeneous density, bilateral breasts
CPT/HCPCS: 77063; 77067

== ENCOUNTER → 2024-07-08 06:40 | Outpatient (CLI) | payer MEDICARE, OTHER, SELFPAY ==
[2024-07-01 22:52] VITALS: BMI 16.8
[2024-07-08 07:57] LABS: Add Manual Diff / Slide Review NO; Basophils Absolute Auto 200 /uL (0-100); Basophils Percent Auto 3.4 % (0-2); Eosinophils Absolute Auto 200 /uL (0-450); Eosinophils Percent Auto 4.2 % (2-4); Hematocrit 38.3 % (36-46); Hemoglobin 12.9 g/dL (12.0-16.0); Lymphocytes Absolute Auto 2000 /uL (1100-4500); Lymphocytes Percent Auto 40.9 % (25-40); Mean Corpuscular HGB Conc 33.7 % (30-36); Mean Corpuscular Hemoglobin 32.7 PG (26-34); Mean Corpuscular Volume 97.2 fL (80-100); Monocytes Absolute Auto 300 /uL (0-900); Neutrophils Absolute Auto 2200 /uL (1500-7000); Neutrophils Percent Auto 45.5 % (50-75); Platelet Count 277 X10^3/uL (150-400); Red Blood Cell Count 3.94 X10^6/uL (4.0-5.2); Red Cell Distribution Width 14.2 % (11.6-14.8); White Blood Cell Count 4.8 X10^3/uL (4.5-11.0)
[2024-07-08 08:43] LABS: HEMOLYSIS < 15 (0-50)
[2024-07-08 08:50] LABS: Cancer Antigen 125 8.6 U/mL (0-35)
[2024-07-08 10:17] LABS: Alanine Aminotransferase 15 IU/L (<35); Albumin 4.1 g/dL (3.5-5.0); Albumin Globulin Ratio 1.6 (1.0-2.8); Alkaline Phosphatase 58 U/L (38-126); Aspartate Aminotransferase 28 IU/L (14-36); BUN Creatinine Ratio 16.9 (6-22); Bilirubin Total 0.6 mg/dL (0.2-1.3); Blood Urea Nitrogen 12 mg/dL (7-17); Calcium 9.5 mg/dL (8.4-10.2); Carbon Dioxide 28 mmol/L (22-32); Chloride 98 mmol/L (98-107); Estimated Glomerular Filt Rate > 60 mL/min (>60); Globulin 2.6 g/dL (1.7-4.1); Glucose 117 mg/dL (80-110); Potassium 4.3 mmol/L (3.4-5.1); Sodium 133 mmol/L (137-145); Total Protein 6.7 g/dL (6.3-8.2)
== END ==
PROVIDERS: PCP Family Medicine; Referring Provider Internal Medicine Hematology & Oncology; Visit Provider Internal Medicine Hematology & Oncology
DX: Z85.43 Personal history of malignant neoplasm of ovary (principal)
CPT/HCPCS: 36415; 80053; 85025; 86304

== ENCOUNTER → 2024-07-16 13:36 | Outpatient (CLI) | payer MEDICARE, OTHER, SELFPAY ==
[2024-07-01 22:52] VITALS: BMI 16.8
== END ==
PROVIDERS: PCP Family Medicine; Referring Provider Physician Assistant; Visit Provider Physician Assistant
DX: R00.1 Bradycardia, unspecified (principal); Z86.73 Personal history of transient ischemic attack (TIA), and cerebral infarction without residual deficits
CPT/HCPCS: 93246; 93248

== ENCOUNTER → 2024-08-04 07:58 | Outpatient (CLI) | payer MEDICARE, OTHER, SELFPAY ==
[2024-07-01 22:52] VITALS: BMI 16.8
--- NOTE | 2024-08-04 07:59 | DI.ECHO.S_ITS ---
[facility] : : [address] : : [place] : : [id number] : : Phone: [phone] Echocardiogram Report + + :Name: CHRIS WORTHINGTON Study Date: 08/04/2024 Height: 63 in : :[facility] ReadingLocation: Weight: 95 lb : : Gender: Female BSA: 1.4 m2 : :: 1960 Age: 64 yrs BP: 152/72 mmHg: :Reason For Study: TIA, BRADYCARDIA : :Ordering Physician: SANCHEZ, : :ANALIA Banegas Performed By: Neema Hernandez : :Referring: ANALIA BRADFORD : + + Interpretation Summary The ejection fraction is estimated to be 60-65%. Diastolic parameters suggest probable normal left ventricular diastolic function and normal filling pressures. The right ventricle is normal in size and function. The right ventricular systolic pressure is estimated to be at least 21 mmHg based on an estimated right atrial pressure of 3 mm Hg. No signficant valvular abnormality. Procedure: A two-dimensional transthoracic echocardiogram with color flow and Doppler was performed. The study quality was technically adequate. There is no prior echocardiogram noted for this patient. A saline contrast injection was performed to assess for cardiac shunting. The patient was in sinus bradycardia with heart rates between 42-51 bpm during the exam. Left Ventricle: The left ventricle is normal in size and wall thickness. The ejection fraction is estimated to be 60-65%. Left ventricular wall motion is normal. Diastolic parameters suggest probable normal left ventricular diastolic function and normal filling pressures. Right Ventricle: The right ventricle is normal in size and function. Atria: The left atrial size is normal. Right atrial size is normal. There is no Doppler evidence for an interatrial shunt. Injection of contrast documented no interatrial shunt. Mitral Valve: The mitral valve leaflets appear mildly thickened, but open well. There is mild mitral regurgitation. Aortic Valve: The aortic valve is trileaflet. The aortic valve opens well. There is no aortic valve stenosis. No aortic regurgitation is present. Tricuspid Valve: The tricuspid valve leaflets are thin and pliable. There is mild tricuspid regurgitation. The right ventricular systolic pressure is estimated to be at least 21 mmHg based on an estimated right atrial pressure of 3 mm Hg. Pulmonic Valve: The pulmonic valve leaflets are thin and pliable; valve motion is normal. There is mild pulmonic regurgitation. Great Vessels: The aortic root is normal size. The dimensions of the ascending aorta are normal. The IVC is of normal diameter and collapses greater than 50% with a sniff. This suggests a low right atrial pressure of 3 mm Hg. Pericardium/ Pleura There is a trivial to small pericardial effusion noted. There is no pleural effusion. MMode/2D Measurements & Calculations LVIDd: 3.8 cm LVOT diam: 2.0 cm LVIDs: 2.7 cm Ao root diam: 2.8 cm FS: 29.7 % asc Aorta Diam: 3.1 cm EPSS: 0.42 cm Ao Arch Diam (Prox Trans): 2.3 cm IVSd: 0.72 cm LVPWd: 0.95 cm LV tan. diameter/BSA (cm/m^2): 2.7 LV sys. diameter/BSA (cm/m^2): 1.9 LA A2 area: 16.6 cm2 RA long axis: 4.7 cm LA A4 area: 13.5 cm2 RA area: 11.3 cm2 LA length (vol): 4.3 cm RA vol: 23.3 ml LA vol: 44.4 ml RA : 16.5 ml/m2 LA vol index: 31.5 ml/m2 IVC diam: 1.2 cm RVD1 (basal): 3.4 cm RVD2 (mid): 2.7 cm TAPSE: 1.9 cm Doppler Measurements & Calculations Ao V2 max: 108.1 cm/sec LVOT Max Malcom: 66.2 cm/sec Ao V2 mean: 70.7 cm/sec LV V1 max P.8 mmHg Ao max P.7 mmHg LV V1 VTI: 17.5 cm Ao mean P.3 mmHg MAYTE(I,D): 2.3 cm2 Ao V2 VTI: 23.7 cm MAYTE(V,D): 1.9 cm2 sev ratio: 0.74 MAYTE indexed to BSA (cm^2/m^2): 1.6 MV E max malcom: 75.5 cm/sec TR max malcom: 209.0 cm/sec MV A max malcom: 68.1 cm/sec TR max P.5 mmHg MV E/A: 1.1 PA V2 max: 78.1 cm/sec Med Peak E' Malcom: 9.5 cm/sec PA V2 mean: 49.6 cm/sec E/E' med: 7.9 PA mean P.2 mmHg Lat Peak E' Malcom: 7.0 cm/sec PA pr(Accel): 5.4 mmHg E/E' lat: 10.7 E/e' average: 9.3 MV dec time: 0.25 sec SVLVOT): 54.8 ml Qp/Qs: 1.0/1.5 Reading Physician:SAMAN
== END ==
PROVIDERS: PCP Family Medicine; Referring Provider Physician Assistant; Visit Provider Physician Assistant
DX: I08.1 Rheumatic disorders of both mitral and tricuspid valves (principal); R00.1 Bradycardia, unspecified; R47.01 Aphasia; Z86.73 Personal history of transient ischemic attack (TIA), and cerebral infarction without residual deficits
CPT/HCPCS: 93306

== ENCOUNTER → 2024-09-05 10:32 | Outpatient (CLI) | payer MEDICARE, OTHER, SELFPAY ==
[2024-07-01 22:52] VITALS: BMI 16.8
[2024-09-05 11:41] LABS: Add Manual Diff / Slide Review NO; Basophils Absolute Auto 100 /uL (0-100); Basophils Percent Auto 1.2 % (0-2); Eosinophils Absolute Auto 100 /uL (0-450); Hematocrit 39.5 % (36-46); Hemoglobin 13.1 g/dL (12.0-16.0); Lymphocytes Absolute Auto 1600 /uL (1100-4500); Lymphocytes Percent Auto 37.2 % (25-40); Mean Corpuscular HGB Conc 33.2 % (30-36); Mean Corpuscular Hemoglobin 32.6 PG (26-34); Mean Corpuscular Volume 98.2 fL (80-100); Monocytes Absolute Auto 200 /uL (0-900); Monocytes Percent Auto 5.1 % (3-14); Neutrophils Absolute Auto 2300 /uL (1500-7000); Neutrophils Percent Auto 53.5 % (50-75); Platelet Count 258 X10^3/uL (150-400); Red Blood Cell Count 4.02 X10^6/uL (4.0-5.2); Red Cell Distribution Width 13.2 % (11.6-14.8); White Blood Cell Count 4.4 X10^3/uL (4.5-11.0)
== END ==
PROVIDERS: PCP Family Medicine; Referring Provider Family Medicine; Visit Provider Family Medicine
DX: R21 Rash and other nonspecific skin eruption (principal); M10.9 Gout, unspecified
CPT/HCPCS: 36415; 84550; 85025; 86038; 86256

== ENCOUNTER → 2024-10-08 06:44 | Outpatient (CLI) | payer MEDICARE, OTHER, SELFPAY ==
[2024-07-01 22:52] VITALS: BMI 16.8
[2024-10-08 09:14] LABS: Cholesterol 188 mg/dL (140-199); HDL Cholesterol 73 mg/dL (40-60); LDL Cholesterol Calculated 99 mg/dL (<100); Triglycerides 78 mg/dL (35-150)
[2024-10-08 09:40] LABS: TSH w/ Reflex to FT4 1.19 uIU/mL (0.47-4.68)
[2024-10-09 03:36] LABS: Apolipoprotein B 76 mg/dL (<90)
== END ==
PROVIDERS: PCP Family Medicine; Referring Provider Family Medicine; Visit Provider Family Medicine
DX: E11.9 Type 2 diabetes mellitus without complications (principal); E87.1 Hypo-osmolality and hyponatremia; Z86.73 Personal history of transient ischemic attack (TIA), and cerebral infarction without residual deficits; E78.5 Hyperlipidemia, unspecified
CPT/HCPCS: 36415; 80061; 82172; 83036; 84443

== ENCOUNTER → 2025-01-02 06:34 | Outpatient (CLI) | payer MEDICARE, OTHER, SELFPAY ==
[2024-07-01 22:52] VITALS: BMI 16.8
[2025-01-02 07:27] LABS: Add Manual Diff / Slide Review NO; Basophils Absolute Auto 100 /uL (0-100); Basophils Percent Auto 1.8 % (0-2); Eosinophils Absolute Auto 100 /uL (0-450); Hematocrit 35.4 % (36-46); Hemoglobin 12.4 g/dL (12.0-16.0); Lymphocytes Absolute Auto 1900 /uL (1100-4500); Lymphocytes Percent Auto 41.4 % (25-40); Mean Corpuscular Hemoglobin 34.5 PG (26-34); Mean Corpuscular Volume 98.7 fL (80-100); Monocytes Absolute Auto 300 /uL (0-900); Monocytes Percent Auto 6.2 % (3-14); Neutrophils Absolute Auto 2200 /uL (1500-7000); Neutrophils Percent Auto 48.6 % (50-75); Platelet Count 248 X10^3/uL (150-400); Red Blood Cell Count 3.59 X10^6/uL (4.0-5.2); Red Cell Distribution Width 13.2 % (11.6-14.8); White Blood Cell Count 4.5 X10^3/uL (4.5-11.0)
[2025-01-02 07:41] LABS: Hemoglobin A1C% w Est Avg Glu 6.2 % (4.0-6.0)
[2025-01-02 07:48] LABS: Alanine Aminotransferase 19 IU/L (<35); Albumin 4.3 g/dL (3.5-5.0); Albumin Globulin Ratio 1.7 (1.0-2.8); Alkaline Phosphatase 66 U/L (38-126); Aspartate Aminotransferase 37 IU/L (14-36); BUN Creatinine Ratio 15.2 (6-22); Bilirubin Total 0.4 mg/dL (0.2-1.3); Blood Urea Nitrogen 10 mg/dL (7-17); Calcium 9.2 mg/dL (8.4-10.2); Carbon Dioxide 28 mmol/L (22-32); Chloride 94 mmol/L (98-107); Cholesterol 160 mg/dL (140-199); Estimated Glomerular Filt Rate > 60 mL/min (>60); Globulin 2.6 g/dL (1.7-4.1); Glucose 118 mg/dL (70-99); HDL Cholesterol 75 mg/dL (40-60); HEMOLYSIS < 15 (0-50); LDL Cholesterol Calculated 70 mg/dL (<100); Potassium 4.5 mmol/L (3.4-5.1); Sodium 131 mmol/L (137-145); Total Protein 6.9 g/dL (6.3-8.2); Triglycerides 77 mg/dL (35-150)
[2025-01-02 08:19] LABS: TSH w/ Reflex to FT4 0.95 uIU/mL (0.47-4.68)
[2025-01-02 08:23] LABS: Creatinine Urine Random 106.42 mg/dL
[2025-01-02 08:31] LABS: Microalbumin Urine Random 1.2 mg/dL (0-1.6)
[2025-01-03 04:36] LABS: Apolipoprotein B 61 mg/dL (<90)
== END ==
PROVIDERS: PCP Family Medicine; Referring Provider Family Medicine; Visit Provider Family Medicine
DX: E11.9 Type 2 diabetes mellitus without complications (principal); E78.5 Hyperlipidemia, unspecified; Z85.43 Personal history of malignant neoplasm of ovary; E87.1 Hypo-osmolality and hyponatremia
CPT/HCPCS: 36415; 80053; 80061; 82043; 82172; 82570; 83036; 84443; 85025

== ENCOUNTER → 2025-06-24 06:41 | Outpatient (CLI) | payer MEDICARE, OTHER, SELFPAY ==
[2024-07-01 22:52] VITALS: BMI 16.8
[2025-06-24 08:02] LABS: Hemoglobin A1C% w Est Avg Glu 6.3 % (4.0-6.0)
[2025-06-24 08:06] LABS: Alanine Aminotransferase 18 IU/L (<35); Albumin 4.3 g/dL (3.5-5.0); Albumin Globulin Ratio 1.4 (1.0-2.8); Alkaline Phosphatase 58 U/L (38-126); Blood Urea Nitrogen 9 mg/dL (7-17); Calcium 9.4 mg/dL (8.4-10.2); Carbon Dioxide 28 mmol/L (22-32); Chloride 94 mmol/L (98-107); Estimated Glomerular Filt Rate > 60 mL/min (>60); Globulin 3.1 g/dL (1.7-4.1); Glucose 115 mg/dL (70-99); HEMOLYSIS < 15 (0-50); Potassium 4.4 mmol/L (3.4-5.1); Sodium 130 mmol/L (137-145); Total Protein 7.4 g/dL (6.3-8.2)
== END ==
PROVIDERS: PCP Family Medicine; Referring Provider Family Medicine; Visit Provider Family Medicine
DX: E11.9 Type 2 diabetes mellitus without complications (principal); Z85.43 Personal history of malignant neoplasm of ovary; Z85.3 Personal history of malignant neoplasm of breast; E78.2 Mixed hyperlipidemia; N28.9 Disorder of kidney and ureter, unspecified
CPT/HCPCS: 36415; 80053; 83036; 86304

== ENCOUNTER → 2025-07-06 13:08 | Outpatient (CLI) | payer MEDICARE, OTHER, SELFPAY ==
[2024-07-01 22:52] VITALS: BMI 16.8
--- NOTE | 2025-07-06 13:09 | DI.MG.S_ITS ---
MM screening mammo unilat RT: 07/06/2025. BI-RADS: 1 CLINICAL: 65-year old female for right screening mammogram. No Tyrer-Cuzick risk score calculation due to the patient's personal history of breast cancer. Patient reports a history of left breast carcinoma diagnosed at age 52. Status-post left mastectomy with chemotherapy. Current reported family history of breast cancer: sister. Personal history of ovarian cancer. The patient reports testing negative for BRCA gene mutation. The patient had a prior right breast biopsy. PRIOR EXAMS 07/04/2024, 07/02/2023, 06/30/2022. MAMMOGRAPHY TECHNIQUE: 2D and 3D (tomosynthesis) digital mammographic views obtained, with additional images as needed for full coverage. Current study was also evaluated with a Computer Aided Detection (CAD) system. DENSITY Right: D. The breast is extremely dense, which lowers the sensitivity of mammography. MAMMOGRAPHY FINDINGS Right: No suspicious mass, asymmetry, microcalcification, or other abnormality seen. IMPRESSION: Right * No evidence of malignancy. RECOMMENDATIONS Right * Annual screening mammography. OVERALL ASSESSMENT CATEGORY BI-RADS-1: Negative. The [employer] recommends annual screening mammography beginning at age 40 for women with average risk of breast cancer. ELECTRONICALLY SIGNED: Cheryl Guevara M.D. on 07/08/2025 at 12:49:08 PM PT Interpreting Station ID: [id number]
== END ==
LOC: MAMMO 13:08
PROVIDERS: PCP Family Medicine; Referring Provider Family Medicine; Visit Provider Family Medicine
DX: Z12.31 Encounter for screening mammogram for malignant neoplasm of breast (principal); Z85.3 Personal history of malignant neoplasm of breast; Z80.3 Family history of malignant neoplasm of breast; R92.341 Mammographic extreme density, right breast
CPT/HCPCS: 77063; 77067